=== PATIENT | male | born 1960 | race Caucasian/White ===

== ENCOUNTER 2020-09-01 14:10 | Outpatient (REF) | payer OTHER, SELFPAY ==
[2020-09-01 15:31] LABS: Creatinine Urine 49.18 mg/dL; Microalbum/Creatinine Ratio Ur 26.4 ug/mg cr
== END 2020-09-01 14:11 | disposition home or self-care (01) ==
LOC: HO.LNP 14:10
PROVIDERS: Visit Provider Family Medicine
DX: Z00.00 Encounter for general adult medical examination without abnormal findings (principal); I10 Essential (primary) hypertension; E11.9 Type 2 diabetes mellitus without complications; L30.9 Dermatitis, unspecified
CPT/HCPCS: 82043

== ENCOUNTER 2020-10-13 16:53 | Emergency (ER) | payer OTHER, SELFPAY ==
--- NOTE | ~2020-10-13 | XR_ITS ---
EXAMINATION: PORTABLE CHEST 1 VIEW CLINICAL INFORMATION: mental status change . COMPARISON: 09/25/2018. TECHNIQUE: Portable frontal view of the chest was obtained. FINDINGS: The lungs are well expanded. No focal infiltrate, effusion, edema, or pneumothorax. Cardiac and mediastinal silhouettes are within normal limits for technique. No acute bony abnormality seen. XR/XR chest 1V IMPRESSION: No evidence of acute disease.
--- NOTE | ~2020-10-13 | CT_ITS ---
EXAMINATION: CT HEAD WITHOUT CONTRAST CLINICAL INFORMATION: Mental status change COMPARISON: None TECHNIQUE: Contiguous axial imaging was performed from the skull base to vertex without intravenous administration of contrast. This CT examination was performed using dose optimization techniques as appropriate, variously including the following: *Automated exposure control *Adjustment of mA and/or kV according to patient size (this includes techniques or standardized protocols for targeted exams where dose is matched to indication/reason for exam; i.e. extremities or head) *Use of iterative reconstruction technique DLP: 805 mGy-cm FINDINGS: Acute intracranial hemorrhage within the left external capsule. There is mild surrounding vasogenic edema. There is no midline shift. The ventricles are symmetrical. Blue to white matter differentiation is otherwise well preserved. No extra-axial fluid collections are identified. The ventricles are normal in size. The osseous structures and soft tissues are normal. The mastoid air cells and visualized portions of the paranasal sinuses are well aerated. CT/CT head/brain wo con IMPRESSION: Hemorrhagic infarct of the left external capsule. This Critical Result was discussed with Dr. Dominguez at 6:12 PM on 10/13/2020 and it was ascertained that the content and urgency of the report was understood at the time of direct communication.
--- NOTE | 2020-10-13 08:58 | ECG_ITS ---
Test Reason : STROKE Blood Pressure : / mmHG Vent. Rate : 106 BPM Atrial Rate : 106 BPM P-R Int : 180 ms QRS Dur : 094 ms QT Int : 376 ms P-R-T Axes : 081 028 064 degrees QTc Int : 499 ms Artifact in tracing Sinus tachycardia Otherwise normal ECG When compared with ECG of 25-SEP-2018 11:26, No significant change was found Referred By: Leora Dominguez Electronically Signed By:NAHID PENG
[2020-10-13 17:00] VITALS: BP 148/84; PULSE 107; RESP 18; TEMP 36.6; O2SAT 95; BMI 19.8
[2020-10-13 17:14] LABS: Glucose, Whole Blood 246 mg/dL (60-115)
--- NOTE | 2020-10-13 17:27 | ED.AMS ---
HPI - Altered Mental Status General Chief Complaint: Altered Mental Status Stated Complaint: ?Stroke Time Seen by Provider: 10/13/20 17:03 Source: patient and family (Sister) Mode of arrival: ambulatory Limitations: no limitations History of Present Illness HPI narrative: 60-year-old male history of hypertension, diabetes mellitus patient presented today for evaluation of possible stroke. Patient status post 2nd vaccination shot of COVID 19 yesterday, patient has been feeling generalized weakness, patient has also noticed that he has been dropping objects out of his right hand (patient is right-handed), patient also noticed that he has been drooling out of his right mouth angle on and off. Sister was in room during the exam note is that the patient speaking slower than his normal but no obvious slurred speech. Related Data Previous Rx's Medication Instructions Recorded betamethasone valerate 0.1 % 1 appl TOPICAL DAILY 30 Days #45 g 09/01/20 topical ointment insulin glargine 100 unit/mL (3 50 unit SUBCUT QPM 30 Days #15 ml 09/01/20 mL) subcutaneous pen lisinopril 20 mg tablet 20 mg PO DAILY 90 Days #90 tab 09/01/20 pen needle, diabetic 32 gauge x #100 ea 09/01/2032 amoxicillin 500 mg tablet 500 mg PO Q12H 10 Days #20 tab 09/26/20 cetirizine 10 mg tablet 10 mg PO DAILY 90 Days #90 tab 09/26/20 fluticasone propionate 50 1 spray INTRANASAL Q12H 30 Days 09/26/20 mcg/actuation nasal #16 g spray,suspension Allergies Allergy/AdvReac Type Severity Reaction Status Date / Time aspirin [ASPIRIN] Allergy Unknown ITCH Verified 09/26/20 10:42 Sinus Allergy Unknown unknown Uncoded 09/26/20 10:42 Review of Systems Review of Systems: All other systems are reviewed and are negative Constitutional: Reports as per HPI and Reports no additional constitutional complaints Eyes: Reports as per HPI and Reports no additional eye complaints Reports system reviewed and no additional complaints, except as documented Cardiovascular: Reports as per HPI and Reports no additional cardiovascular complaints Respiratory: Reports as per HPI and Reports no additional respiratory complaints Gastrointestinal: Reports as per HPI and Reports no additional gastrointestinal complaints Genitourinary: Reports no additional female genitourinary complaints Musculoskeletal: Reports no additional musculoskeletal complaints Skin/Breast: Reports system reviewed and no additional complaints, except as docu Psychiatric: Reports no additional psychiatric complaints Endocrine: Reports no additional endocrine complaints Hematologic/Lymphatic: Reports no additional hematologic/lymphatic complaints Allergic/Immunologic: Reports no additional allergic/immunologic complaints Reports system reviewed and no additional complaints, except as documented and Reports Abnormal speech present [facility] Past Medical History Medical History Diabetes mellitus HTN (hypertension) Surgical History History of colonoscopy History of gallstones History of tonsillectomy Family History Family History Father HTN (hypertension) CVD (cardiovascular disease) Diabetes mellitus Mother HTN (hypertension) CVD (cardiovascular disease) Diabetes mellitus Sister No problems noted. Sister No problems noted. Sister Breast cancer Son No problems noted. Social History Social History Advance Directives: No Advance Directives Information Provided: Yes Physical Exam Vital Signs: Vital Signs: Last Vital Signs Temp 97.9 F 10/13/20 17:00 Pulse 107 H 10/13/20 17:00 Resp 18 10/13/20 17:00 BP 148/84 H 10/13/20 17:00 Pulse Ox 95 10/13/20 17:00 Body Mass Index 19.8 Vital signs have been reviewed as appeared to be correct. Blood pressure is elevated. Heart rate is elevated. Respiration rate normal. Temperature normal. Oxygen saturation normal. Appearance: Alert. Oriented X3. No acute distress. Head: Normal external exam. Normocephalic. Atraumatic. No Blanca signs noted. No raccoon eyes noted Eyes: PERRLA. EOMI. Conjunctiva and sclera normal. Eyelids normal. ENT: TM's Normal. Pharynx normal. Uvula midline. Moist mucous membranes. No trismus noted. No drooling noted. No muffled voice noted. Neck: Normal inspection. Neck supple. FROM. No adenopathy. Thyroid Normal. No meningeal signs. No neck mass noted. CVS: Normal heart rate and rhythm. Heart sound normal. No murmurs noted. Pulses normal throughout. Respiratory: No respiratory distress. Painless inspiration. Breath sounds normal. No wheezes/rales/rhonchi noted. Chest nontender. No accessory muscle usage noted or decreased air movement noted. Abdomen: Soft and nontender. Bowel sounds normal in all 4 quadrants. No distention noted. No organomegaly noted. No visible injury noted. Back: No CVA tenderness. Full range of motion noted. Skin: Skin warm and dry. Normal skin color. Normal skin turgor. No rashes/lesions/lacerations noted. Extremities: No lower extremity edema. Extremities exhibit normal range of motion. Extremities nontender. Neuro: Oriented X 3. No motor deficit. No sensory deficit. Reflexes normal. NIH Stroke Scale Level of Consciousness: Alert Level of Consciousness Questions: Answers both questions correctly Level of Consciousness Commands: Performs both tasks correctly Best Gaze: Normal Visual: No visual loss Facial Palsy: Normal Motor Arm (Right): No drift Motor Arm (Left): No drift Motor Leg (Right): No drift Motor Leg (Left): No drift Limb Ataxia: Absent Sensory: Normal Best Language: No aphasia Dysarthia: Normal Extinction and Inattention: No abnormality Score: 0 Course Course Course Narrative: Assessment and plan. 60-year-old male history of hypertension came in with speech problem evaluation, CT of the head showed likely hypertensive bleed in the left extra capsular region. While I am in the process to transfer the patient out to [facility] or [place], patient and family do not want to go to [facility], Patient would like go home. I spent 15 minutes trying talking to the patient about the nature of his hypertensive bleed also explained to him that the disease can progress very quick causing or respiratory issue or also can close severe neurological deficit. Patient still would like to go home against medical advice sister was at the bedside also trying to convince the patient to stay in the hospital but patient is very adamant and would like to sign against medical advice. Patient is awake, alert, oriented, understood risk of leaving against medical advice including or severe neurological deficit. MDM - Altered Mental Status Lab Data Attestation: I reviewed the patient's lab results. Result diagrams: 10/13/20 17:17 10/13/20 17:17 Labs: Lab Results 10/13/20 10/13/20 10/13/20 Range/Units 17:10 17:17 17:17 WBC 8.8 (4.8-10.8) X10*3/uL RBC 5.21 (4.60-5.80) X10*6/uL Hgb 16.0 (14.0-18.0) g/dl Hct 47.5 (42-52) % MCV 91.2 (80-98) fL MCH 30.7 (27.0-33.0) pg MCHC 33.7 (31.0-36.0) g/dl RDW 12.6 (11.0-16.0) % Plt Count 222 (160-400) X10*3/uL MPV 10.1 (9.4-12.4) fL Immature Gran % (Auto) 0.3 (0.0-0.4) % Neut % (Auto) 44.3 L (45-73) % Lymph % (Auto) 44.0 H (20-40) % [place] % (Auto) 8.7 (2-11) % Eos % (Auto) 2.2 (0-4) % Baso % (Auto) 0.5 (0-2) % Lymph # (Auto) 3.9 (1.2-4.9) X10*3/uL [place] # (Auto) 0.8 (0.1-1.2) X10*3/uL Eos # (Auto) 0.2 (0.0-0.4) X10*3/uL Baso # (Auto) 0.0 (0.0-0.2) X10*3/uL Abs Immat Gran (auto) 0.03 (0.00-0.03) X10*3/uL Absolute Neuts (auto) 3.9 (2.0-8.3) X10*3/uL Absolute Nucleated RBC 0.000 (0.0-0.012) X10*3/uL Nucleated RBC % (auto) 0.0 (0.0-0.2) /100WBC PT (10.8-13.0) SEC INR (0.9-1.1) APTT (24.1-38.0) SEC Sodium 141 (135-145) mmol/L Potassium 4.1 (3.3-5.1) mmol/L Chloride 104 (96-108) mmol/L Carbon Dioxide 24 (22-29) mmol/L Anion Gap 17 (12-20) BUN 12 (9-16) mg/dL Creatinine 0.93 (0.5-1.4) mg/dL Estim Creat Clear Calc 95.5 Estimated GFR > 60 POC Glucose 246 H (60-115) mg/dL Random Glucose 189 H (60-115) mg/dL Calcium 9.4 (8.4-10.2) mg/dL Total Bilirubin 0.9 (0.0-1.0) mg/dL Direct Bilirubin 0.4 (0.0-0.5) mg/dL AST 59 H (5-37) U/L ALT 97 H (0-40) U/L Alkaline Phosphatase 79 (39-117) U/L Troponin I High Sens (<3.5-35.0) ng/L B-Natriuretic Peptide (<100) pg/mL Total Protein 7.9 (6.5-8.0) g/dL Albumin 4.2 (3.5-5.0) g/dL Lipase 28 (8-78) U/L 10/13/20 10/13/20 Range/Units 17:17 17:17 WBC (4.8-10.8) X10*3/uL RBC (4.60-5.80) X10*6/uL Hgb (14.0-18.0) g/dl Hct (42-52) % MCV (80-98) fL MCH (27.0-33.0) pg MCHC (31.0-36.0) g/dl RDW (11.0-16.0) % Plt Count (160-400) X10*3/uL MPV (9.4-12.4) fL Immature Gran % (Auto) (0.0-0.4) % Neut % (Auto) (45-73) % Lymph % (Auto) (20-40) % [place] % (Auto) (2-11) % Eos % (Auto) (0-4) % Baso % (Auto) (0-2) % Lymph # (Auto) (1.2-4.9) X10*3/uL [place] # (Auto) (0.1-1.2) X10*3/uL Eos # (Auto) (0.0-0.4) X10*3/uL Baso # (Auto) (0.0-0.2) X10*3/uL Abs Immat Gran (auto) (0.00-0.03) X10*3/uL Absolute Neuts (auto) (2.0-8.3) X10*3/uL Absolute Nucleated RBC (0.0-0.012) X10*3/uL Nucleated RBC % (auto) (0.0-0.2) /100WBC PT 12.7 (10.8-13.0) SEC INR 1.1 (0.9-1.1) APTT 40.5 H (24.1-38.0) SEC Sodium (135-145) mmol/L Potassium (3.3-5.1) mmol/L Chloride (96-108) mmol/L Carbon Dioxide (22-29) mmol/L Anion Gap (12-20) BUN (9-16) mg/dL Creatinine (0.5-1.4) mg/dL Estim Creat Clear Calc Estimated GFR POC Glucose (60-115) mg/dL Random Glucose (60-115) mg/dL Calcium (8.4-10.2) mg/dL Total Bilirubin (0.0-1.0) mg/dL Direct Bilirubin (0.0-0.5) mg/dL AST (5-37) U/L ALT (0-40) U/L Alkaline Phosphatase (39-117) U/L Troponin I High Sens < 3.5 (<3.5-35.0) ng/L B-Natriuretic Peptide < 10 (<100) pg/mL Total Protein (6.5-8.0) g/dL Albumin (3.5-5.0) g/dL Lipase (8-78) U/L Imaging Data CT scan - head: Radiologist's impression: Hemorrhagic infarct of left external capsule. Chest x-ray: Radiologist's impression: No evidence of acute disease. ECG Data ECG #1: Interpretation: Sinus tachycardia at 106 beats per minutes, normal axis, normal intervals, no ST-T changes. Discharge Plan Discharge Clinical Impression: Essential hypertension, Stroke due to intracerebral hemorrhage Patient Disposition: Left Against Medical Advice Instructions: Intracerebral Hemorrhage (DC), Left Hemispheric Stroke (DC) Prescriptions: No Action Lantus Solostar U-100 Insulin 100 unit/mL (3 mL) insulin pen 50 unit subcut QPM 30 Days Qty: 15 RF: 4 (DME) pen needle, diabetic [BD Vida 2nd Gen Pen Needle] 32 gauge x 5/32 needle See Rx Instructions .ROUTE .MEDSUPPLY Qty: 100 RF: 4 lisinopril 20 mg tablet 20 mg PO DAILY 90 Days Qty: 90 RF: 4 betamethasone valerate 0.1 % ointment 1 appl topical DAILY 30 Days Qty: 45 RF: 3 fluticasone propionate [Flonase Allergy Relief] 50 mcg/actuation spray,suspension 1 spray intranasal Q12H 30 Days Qty: 16 RF: 2 cetirizine [All Day Allergy (cetirizine)] 10 mg tablet 10 mg PO DAILY 90 Days Qty: 90 RF: 3 amoxicillin 500 mg tablet 500 mg PO Q12H 10 Days Qty: 20 RF: 0 Referrals: Mic Cordero MD [Primary Care Provider] - 2 days
[2020-10-13 17:38] LABS: Basophils Percent Auto 0.5 % (0-2); Eosinophils Absolute Auto 0.2 X10*3/uL (0.0-0.4); Eosinophils Percent Auto 2.2 % (0-4); Hematocrit 47.5 % (42-52); Imm Gran Abs Auto 0.03 X10*3/uL (0.00-0.03); Imm Gran Pct Auto 0.3 % (0.0-0.4); Lymphocytes Absolute Auto 3.9 X10*3/uL (1.2-4.9); MANUAL DIFF FLAG NO; Mean Corpuscular HGB Conc 33.7 g/dl (31.0-36.0); Mean Corpuscular Hemoglobin 30.7 pg (27.0-33.0); Mean Corpuscular Volume 91.2 fL (80-98); Mean Platelet Volume 10.1 fL (9.4-12.4); Monocytes Absolute Auto 0.8 X10*3/uL (0.1-1.2); Monocytes Percent Auto 8.7 % (2-11); Neutrophils Absolute Auto 3.9 X10*3/uL (2.0-8.3); Neutrophils Percent Auto 44.3 % (45-73); Platelet Count 222 X10*3/uL (160-400); Red Blood Count 5.21 X10*6/uL (4.60-5.80); Red Cell Distribution Width 12.6 % (11.0-16.0); White Blood Count 8.8 X10*3/uL (4.8-10.8)
[2020-10-13 17:40] LABS: INTERNATIONAL NORM RATIO 1.1 (0.9-1.1); Partial Thromboplastin Time 40.5 SEC (24.1-38.0); Prothrombin Time 12.7 SEC (10.8-13.0)
[2020-10-13 17:53] LABS: Alanine Aminotransferase 97 U/L (0-40); Albumin Level 4.2 g/dL (3.5-5.0); Alkaline Phosphatase 79 U/L (39-117); Anion Gap 17 (12-20); Aspartate Amino Transferase 59 U/L (5-37); Bilirubin Direct 0.4 mg/dL (0.0-0.5); Bilirubin Total 0.9 mg/dL (0.0-1.0); Blood Urea Nitrogen 12 mg/dL (9-16); Calcium 9.4 mg/dL (8.4-10.2); Carbon Dioxide 24 mmol/L (22-29); Chloride 104 mmol/L (96-108); Creatinine Clr Calc Pharmacy 95.5; Estimated Glomerular Filt Rate > 60; Glucose Random 189 mg/dL (60-115); Lipase 28 U/L (8-78); Potassium 4.1 mmol/L (3.3-5.1); Sodium 141 mmol/L (135-145); Total Protein 7.9 g/dL (6.5-8.0)
[2020-10-13 17:55] LABS: B Type Natriuretic Peptide < 10 pg/mL (<100); Troponin-I High Sensitivity < 3.5 ng/L (<3.5-35.0)
[2020-10-13] MEDS: Labetalol HCL 100 MG/20 ML VIAL 10 MG IVPUSH (18:00)
[2020-10-13 18:27] VITALS: BP 139/84; PULSE 87; RESP 18; O2SAT 97
--- NOTE | 2020-10-13 19:12 | PC.NURSE ---
patient informed by physician of CT scan results. patient stating he wants to leave. education provided by this nurse. patient still wants to leave.
--- NOTE | 2020-10-13 19:12 | PC.NURSE ---
patients family member in to help educate patient on need to transfer to facility with neuro surgeon. patient continues to resfuse.
--- NOTE | 2020-10-13 19:13 | PC.NURSE ---
patient still states he is going to leave no matter what. this nurse again provided education on the topic. patient looking angry and stating he is going to leave. drafting up AMA discharge papers.
--- NOTE | 2020-11-02 16:46 | MHC.STROKE ---
LATE ENTRY, PATIENT ONSET OF SYMPTOMS 28 HOURS PRODUCT SAFETY HEAD 10/12/20 AT 1453. HE REFUSED TRANSFER TO TERTIARY FACILITY FOR ICH. SIGNED OUT AMA
== END 2020-10-13 19:15 | disposition left against medical advice (07) ==
PROVIDERS: Emergency Provider Emergency Medicine; PCP Family Medicine
DX: I61.9 Nontraumatic intracerebral hemorrhage, unspecified (principal); I10 Essential (primary) hypertension; R53.1 Weakness; R00.0 Tachycardia, unspecified; E11.9 Type 2 diabetes mellitus without complications; Z79.4 Long term (current) use of insulin
CPT/HCPCS: 36415; 70450; 71045; 80048; 80076; 82947; 83690; 83880; 84484; 85025; 85610; 85730; 87635; 93005; 99284; 99285

== ENCOUNTER 2021-06-09 07:11 | Outpatient (REF) | payer OTHER, SELFPAY ==
[2021-06-09 08:07] LABS: Estimated Average Glucose 220 mg/dL; Hemoglobin A1c % 9.3 %
== END 2021-06-09 07:12 | disposition home or self-care (01) ==
LOC: HO.LAB 07:11
PROVIDERS: Absent Provider Hospitalist; PCP Family Medicine; Visit Provider Family Medicine
DX: E11.9 Type 2 diabetes mellitus without complications (principal)
CPT/HCPCS: 36415; 83036

== ENCOUNTER 2021-08-09 | Outpatient (REF) | payer OTHER, SELFPAY ==
[2021-08-10 11:17] LABS: Appearance Urine CLEAR; Color Urine YELLOW; Glucose Urine UA >=1000 MG/DL (NEG); Leukocyte Esterase Urine NEG (NEG); Nitrite Urine NEG (NEG); PH 5.5 (5.0-8.0); Specific Gravity - Urine 1.015 (1.005-1.025); Urine Blood NEG (NEG); Urine Ketones NEG (NEG); Urine Protein NEG (NEG-TRACE)
[2021-08-10 11:49] LABS: RBC Urine 0 /HPF (0); Sperm Urine NOTED; WBC Urine 0-2 /HPF (0-4)
[2021-08-10 12:06] LABS: Microalbum/Creatinine Ratio Ur 42.5 ug/mg cr
== END 2021-08-09 00:01 | disposition home or self-care (01) ==
LOC: HO.LNP
PROVIDERS: Visit Provider Family Medicine
DX: R30.0 Dysuria (principal)
CPT/HCPCS: 81001; 82043; 87086

== ENCOUNTER 2021-08-10 11:02 | Outpatient (REF) | payer OTHER, SELFPAY | END 2021-08-10 11:03 | disposition home or self-care (01) | LOC: HO.LNP 11:02 | PROVIDERS: Visit Provider Family Medicine | DX: Z13.89 Encounter for screening for other disorder (principal) ==

== ENCOUNTER 2021-08-15 08:40 | Outpatient (REF) | payer OTHER, SELFPAY ==
[2021-08-15 10:07] LABS: Alanine Aminotransferase 78 U/L (0-40); Alkaline Phosphatase 80 U/L (39-117); Anion Gap 11 (12-20); Aspartate Amino Transferase 52 U/L (5-37); Bilirubin Total 0.9 mg/dL (0.0-1.0); Blood Urea Nitrogen 9 mg/dL (9-16); Calcium 9.8 mg/dL (8.4-10.2); Carbon Dioxide 30 mmol/L (22-29); Chloride 105 mmol/L (96-108); Cholesterol 147 mg/dL; Estimated Glomerular Filt Rate > 60; Glucose Fasting 77 mg/dL (60-99); HDL Cholesterol 33 mg/dL; LDL Cholesterol Calculated 103 mg/dl; Lipase 21 U/L (8-78); Sodium 141 mmol/L (135-145); Total Protein 7.4 g/dL (6.5-8.0); Triglycerides 59 mg/dL
[2021-08-15 10:41] LABS: Appearance Urine CLEAR; Color Urine YELLOW; Glucose Urine UA 100 MG/DL (NEG); Leukocyte Esterase Urine NEG (NEG); Nitrite Urine NEG (NEG); Specific Gravity - Urine >= 1.030 (1.005-1.025); Urine Blood NEG (NEG); Urine Ketones NEG (NEG); Urine Protein NEG (NEG-TRACE)
== END 2021-08-15 08:41 | disposition home or self-care (01) ==
LOC: HO.LAB 08:40
PROVIDERS: PCP Family Medicine; Visit Provider Family Medicine
DX: Z00.00 Encounter for general adult medical examination without abnormal findings (principal); R10.9 Unspecified abdominal pain; R30.0 Dysuria
CPT/HCPCS: 36415; 80053; 80061; 81003; 83690; 84443

== ENCOUNTER 2021-12-12 10:54 | Emergency (ER) | payer OTHER, SELFPAY ==
--- NOTE | ~2021-12-12 | CT_ITS ---
EXAMINATION: CT HEAD WITHOUT CONTRAST CLINICAL INFORMATION: Mental status change. COMPARISON: CT scan of the head 10/13/2020. TECHNIQUE: Contiguous axial imaging was performed from the skull base to vertex without intravenous administration of contrast. This CT examination was performed using dose optimization techniques as appropriate, variously including the following: *Automated exposure control *Adjustment of mA and/or kV according to patient size (this includes techniques or standardized protocols for targeted exams where dose is matched to indication/reason for exam; i.e. extremities or head) *Use of iterative reconstruction technique DLP: 712 mGy-cm FINDINGS: There is no acute intracranial hemorrhage or abnormal extra-axial collection. No intracranial mass effect or midline shift. Lateral and third ventricles are normal. No hydrocephalus. Blue-white matter differentiation is preserved and there is no evidence of acute territorial infarct. The calvarium and skull base are intact. Mastoid air cells and middle ear cavities are well aerated. 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 CT/CT head/brain wo con IMPRESSION: Unremarkable examination in that there is no evidence of acute territorial infarct or hemorrhage. No intracranial mass effect or hydrocephalus.
[2021-12-12 11:00] VITALS: BP 183/97; PULSE 94; RESP 18; TEMP 36.4; O2SAT 96; BMI 20.9
[2021-12-12 11:06] LABS: Glucose, Whole Blood 139 mg/dL (60-115)
--- NOTE | 2021-12-12 11:23 | ED_ITS ---
HPI - Neuro Symptoms/Deficit General Chief Complaint: Stroke Stated Complaint: WEAKNESS,TOLD TO COME TO ER FOR HEART BLOCK BY MD Time Seen by Provider: 12/12/21 11:23 Source: patient and EMS Mode of arrival: EMS Limitations: no limitations History of Present Illness HPI Narrative: 61-year-old male came in for evaluation of change mental status. Patient with history of diabetes taking 100 units of Lantus and glucose fashion 500 mg b.i.d., the patient had speech problem and left-sided weakness patient was given 250 mL of D10 the patient's symptoms started to improve gradually, patient in the emergency department is awake alert, oriented x3 with unremarkable neuro exam. Patient had a history of left-sided stroke with a subtle right-sided weakness. Related Data Previous Rx's Medication Instructions Recorded betamethasone valerate 0.1 % 1 appl TOPICAL DAILY 30 Days #45 g 09/01/20 topical ointment cetirizine 10 mg tablet (All Day 10 mg PO DAILY 90 Days #90 tab 09/26/20 Allergy (cetirizine)) fluticasone propionate 50 1 spray INTRANASAL Q12H 30 Days 09/26/20 mcg/actuation nasal #16 g spray,suspension (Flonase Allergy Relief) blood pressure monitor #1 ea 08/09/21 pen needle, diabetic 32 gauge x #100 ea 08/09/21/32 (BD Vida 2nd Gen Pen Needle) sulfamethoxazole 800 1 tab PO Q12H 10 Days #20 tab 08/09/21 mg-trimethoprim 160 mg tablet (Bactrim DS) insulin glargine 100 unit/mL (3 50 unit (0.5 mL) SUBCUT QPM 30 08/16/21 mL) subcutaneous pen ( #15 ml KwikPen U-100 Insulin) metformin 500 mg tablet 500 mg PO BID #60 tab 10/02/21 lisinopril 20 mg tablet 20 mg PO DAILY #90 tab 11/17/21 Allergies Allergy/AdvReac Type Severity Reaction Status Date / Time aspirin [ASPIRIN] Allergy Unknown ITCH Verified 08/09/21 15:58 Sinus Allergy Unknown unknown Uncoded 08/09/21 15:58 Review of Systems Review of Systems: All other systems are reviewed and are negative Constitutional: Reports as per HPI and Reports no additional constitutional complaints Eyes: Reports as per HPI and Reports no additional eye complaints Reports system reviewed and no additional complaints, except as documented Cardiovascular: Reports as per HPI and Reports no additional cardiovascular complaints Respiratory: Reports as per HPI and Reports no additional respiratory complaints Gastrointestinal: Reports as per HPI and Reports no additional gastrointestinal complaints Genitourinary: Reports no additional female genitourinary complaints Musculoskeletal: Reports no additional musculoskeletal complaints Skin/Breast: Reports system reviewed and no additional complaints, except as docu Psychiatric: Reports no additional psychiatric complaints Endocrine: Reports no additional endocrine complaints Hematologic/Lymphatic: Reports no additional hematologic/lymphatic complaints Allergic/Immunologic: Reports no additional allergic/immunologic complaints Reports system reviewed and no additional complaints, except as documented and Reports Abnormal speech present [facility] Past Medical History Medical History Diabetes mellitus HTN (hypertension) Surgical History History of colonoscopy History of gallstones History of tonsillectomy Family History Family History Father HTN (hypertension) CVD (cardiovascular disease) Diabetes mellitus Mother HTN (hypertension) CVD (cardiovascular disease) Diabetes mellitus Sister No problems noted. Sister No problems noted. Sister Breast cancer Son No problems noted. Social History Social History Alcohol intake: current Alcohol intake frequency: holidays/special occasions only Patient Tobacco Use Status: Former Tobacco user Use of substances other than those prescribed or required for medical reasons: No Advance Directives: Yes Advance Directives Information Provided: Yes Advance Directives on File: No Physical Exam Vital Signs: Vital Signs: Last Vital Signs Temp 98.7 F 12/12/21 14:37 Pulse 90 12/12/21 14:37 Resp 16 12/12/21 14:37 BP 170/92 H 12/12/21 14:37 Pulse Ox 95 12/12/21 14:37 BMI result Body Mass Index 20.9 Vital signs have been reviewed as appeared to be correct. Blood pressure elevated. Heart rate normal. Respiration rate normal. Temperature normal. Oxygen saturation normal. Appearance: Alert. Oriented X3. No acute distress. Head: Normal external exam. Normocephalic. Atraumatic. No Blanca signs noted. No raccoon eyes noted Eyes: PERRLA. EOMI. Conjunctiva and sclera normal. Eyelids normal. ENT: TM's Normal. Pharynx normal. Uvula midline. Moist mucous membranes. No trismus noted. No drooling noted. No muffled voice noted. Neck: Normal inspection. Neck supple. FROM. No adenopathy. Thyroid Normal. No meningeal signs. No neck mass noted. CVS: Normal heart rate and rhythm. Heart sound normal. No murmurs noted. Pulses normal throughout. Respiratory: No respiratory distress. Painless inspiration. Breath sounds normal. No wheezes/rales/rhonchi noted. Chest nontender. No accessory muscle usage noted or decreased air movement noted. Abdomen: Soft and nontender. Bowel sounds normal in all 4 quadrants. No distention noted. No organomegaly noted. No visible injury noted. Back: No CVA tenderness. Full range of motion noted. Skin: Skin warm and dry. Normal skin color. Normal skin turgor. No rashes/lesions/lacerations noted. Extremities: No lower extremity edema. Extremities exhibit normal range of motion. Extremities nontender. Neuro: Oriented X 3. Cranial nerve exam: II-XII are grossly intact No motor deficit. No sensory deficit. Reflexes normal. Course Reevaluation(s) Reevaluation #1: Patient is awake, alert, oriented x3, repeat neuro exam is unchanged with no weakness, NIH score is 0. Patient feels at his normal baseline, sister/ at the bedside will take home. Patient tolerated p.o. intake for discharge and fingerstick is 122. Leukocytosis likely reaction to hypoglycemic stress. Time: 15:09 [facility] - Neuro Symptoms/Deficit Lab Data Attestation: I reviewed the patient's lab results. Result diagrams: 12/12/21 12:20 12/12/21 12:20 Labs: Lab Results 12/12/21 12/12/21 12/12/21 Range/Units 11:03 12:20 12:20 WBC 12.4 H (4.8-10.8) X10*3/uL RBC 5.30 (4.60-5.80) X10*6/uL Hgb 16.0 (14.0-18.0) g/dl Hct 47.7 (42.0-52.0) % MCV 90.0 (80.0-98.0) fL MCH 30.2 (27.0-33.0) pg MCHC 33.5 (31.0-36.0) g/dl RDW 12.4 (11.0-16.0) % Plt Count 191 (160-400) X10*3/uL MPV 9.5 (9.4-12.4) fL Immature Gran % (Auto) 0.4 (0.0-0.4) % Neut % (Auto) 78.4 H (45-73) % Lymph % (Auto) 13.3 L (20-40) % [place] % (Auto) 7.4 (2-11) % Eos % (Auto) 0.3 (0-4) % Baso % (Auto) 0.2 (0-2) % Lymph # (Auto) 1.6 (1.2-4.9) X10*3/uL [place] # (Auto) 0.9 (0.1-1.2) X10*3/uL Eos # (Auto) 0.0 (0.0-0.4) X10*3/uL Baso # (Auto) 0.0 (0.0-0.2) X10*3/uL Abs Immat Gran (auto) 0.05 H (0.00-0.03) X10*3/uL Absolute Neuts (auto) 9.7 H (2.0-8.3) x10*3/uL Absolute Nucleated RBC 0.000 (0.0-0.012) X10*3/uL Nucleated RBC % (auto) 0.0 (0.0-0.2) /100WBC Sodium 139 (135-145) mmol/L Potassium 4.8 (3.3-5.1) mmol/L Chloride 103 (96-108) mmol/L Carbon Dioxide 28 (22-29) mmol/L Anion Gap 13 (12-20) BUN 12 (9-16) mg/dL Creatinine 0.86 (0.5-1.4) mg/dL Estim Creat Clear Calc 107.9 Estimated GFR > 60 POC Glucose 139 H (60-115) mg/dL Random Glucose 87 D (60-115) mg/dL Calcium 9.7 (8.4-10.2) mg/dL Total Bilirubin 1.1 H (0.0-1.0) mg/dL Direct Bilirubin 0.5 (0.0-0.5) mg/dL AST 55 H (5-37) U/L ALT 73 H (0-40) U/L Alkaline Phosphatase 77 (39-117) U/L Total Protein 8.0 (6.5-8.0) g/dL Albumin 4.4 (3.5-5.0) g/dL Lipase 9 (8-78) U/L Urine Color Urine Appearance Urine pH (5.0-8.0) Ur Specific [place] (1.005-1.025) Urine Protein (NEG-TRACE) MG/DL Urine Glucose (UA) (NEG) MG/DL Urine Ketones (NEG) MG/DL Urine Blood (NEG) Urine Nitrite (NEG) Ur Leukocyte Esterase (NEG) 12/12/21 12/12/21 Range/Units 12:20 15:13 WBC (4.8-10.8) X10*3/uL RBC (4.60-5.80) X10*6/uL Hgb (14.0-18.0) g/dl Hct (42.0-52.0) % MCV (80.0-98.0) fL MCH (27.0-33.0) pg MCHC (31.0-36.0) g/dl RDW (11.0-16.0) % Plt Count (160-400) X10*3/uL MPV (9.4-12.4) fL Immature Gran % (Auto) (0.0-0.4) % Neut % (Auto) (45-73) % Lymph % (Auto) (20-40) % [place] % (Auto) (2-11) % Eos % (Auto) (0-4) % Baso % (Auto) (0-2) % Lymph # (Auto) (1.2-4.9) X10*3/uL [place] # (Auto) (0.1-1.2) X10*3/uL Eos # (Auto) (0.0-0.4) X10*3/uL Baso # (Auto) (0.0-0.2) X10*3/uL Abs Immat Gran (auto) (0.00-0.03) X10*3/uL Absolute Neuts (auto) (2.0-8.3) x10*3/uL Absolute Nucleated RBC (0.0-0.012) X10*3/uL Nucleated RBC % (auto) (0.0-0.2) /100WBC Sodium (135-145) mmol/L Potassium (3.3-5.1) mmol/L Chloride (96-108) mmol/L Carbon Dioxide (22-29) mmol/L Anion Gap (12-20) BUN (9-16) mg/dL Creatinine (0.5-1.4) mg/dL Estim Creat Clear Calc Estimated GFR POC Glucose 53 L* (60-115) mg/dL Random Glucose (60-115) mg/dL Calcium (8.4-10.2) mg/dL Total Bilirubin (0.0-1.0) mg/dL Direct Bilirubin (0.0-0.5) mg/dL AST (5-37) U/L ALT (0-40) U/L Alkaline Phosphatase (39-117) U/L Total Protein (6.5-8.0) g/dL Albumin (3.5-5.0) g/dL Lipase (8-78) U/L Urine Color YELLOW Urine Appearance CLEAR Urine pH 6.0 (5.0-8.0) Ur Specific [place] 1.020 (1.005-1.025) Urine Protein NEG (NEG-TRACE) MG/DL Urine Glucose (UA) 100 H (NEG) MG/DL Urine Ketones 40 (NEG) MG/DL Urine Blood NEG (NEG) Urine Nitrite NEG (NEG) Ur Leukocyte Esterase NEG (NEG) Imaging Data CT scan - head: Attestation: I personally reviewed and interpreted this imaging study as follows: Radiologist's impression: Unremarkable examination in that there is no evidence of acute territorial infarct or hemorrhage. No intracranial mass effect or hydrocephalus. NIH Stroke Scale Level of Consciousness: Alert Level of Consciousness Questions: Answers both questions correctly Level of Consciousness Commands: Performs both tasks correctly Best Gaze: Normal Visual: No visual loss Facial Palsy: Normal Motor Arm (Right): No drift Motor Arm (Left): No drift Motor Leg (Right): No drift Motor Leg (Left): No drift Limb Ataxia: Absent Sensory: Normal Best Language: No aphasia Dysarthia: Normal Extinction and Inattention: No abnormality Score: 0 Discharge Plan Discharge Clinical Impression: Hypoglycemia due to insulin Patient Disposition: Home, Self-Care Instructions: What to Do if Your Blood Sugar is Low (ED) Prescriptions: No Action Lee Meneses U-100 Insulin 100 unit/mL (3 mL) insulin pen 50 unit subcut QPM 30 Days Qty: 15 4RF metformin 500 mg tablet 500 mg PO BID Qty: 60 1RF lisinopril 20 mg tablet 20 mg PO DAILY Qty: 90 3RF betamethasone valerate 0.1 % ointment 1 appl topical DAILY 30 Days Qty: 45 3RF fluticasone propionate [Flonase Allergy Relief] 50 mcg/actuation spray,suspension 1 spray intranasal Q12H 30 Days Qty: 16 2RF Rx Instructions: administer into each nostril cetirizine [All Day Allergy (cetirizine)] 10 mg tablet 10 mg PO DAILY 90 Days Qty: 90 3RF (DME) pen needle, diabetic [BD Vida 2nd Gen Pen Needle] 32 gauge x 5/32 needle See Rx Instructions .ROUTE .MEDSUPPLY Qty: 100 4RF Rx Instructions: DX: E11.9, daily As directed to treat blood sugar, 90 day supply sulfamethoxazole-trimethoprim [Bactrim DS] 800-160 mg tablet 1 tab PO Q12H 10 Days Qty: 20 0RF (DME) blood pressure monitor Kit See Rx Instructions .ROUTE .MEDSUPPLY Qty: 1 0RF Rx Instructions: Automatic, Digital. Dx: I10. Daily As directed, 999 days/lifetime Referrals: Physician,Unknown J [Primary Care Provider] - Interventions: ED Discharge Assessment Last Done: 12/12/21 15:52
--- NOTE | 2021-12-12 11:25 | ECG_ITS ---
Test Reason : hypoglycemia Blood Pressure : / mmHG Vent. Rate : 088 BPM Atrial Rate : 088 BPM P-R Int : 192 ms QRS Dur : 100 ms QT Int : 406 ms P-R-T Axes : 069 -05 059 degrees QTc Int : 491 ms Normal sinus rhythm Possible Left atrial enlargement Minimal voltage criteria for LVH, may be normal variant ( Joey product ) Prolonged QT Abnormal ECG When compared with ECG of 13-OCT-2020 17:05, No significant changes seen Referred By: Leora Dominguez Electronically Signed By:NAHID PENG
[2021-12-12 11:34] VITALS: BP 194/101; PULSE 88; RESP 15; O2SAT 97
[2021-12-12 12:27] LABS: MANUAL DIFF FLAG NO
[2021-12-12 12:28] LABS: Appearance Urine CLEAR; Color Urine YELLOW; Glucose Urine UA 100 MG/DL (NEG); Leukocyte Esterase Urine NEG (NEG); Nitrite Urine NEG (NEG); Urine Blood NEG (NEG); Urine Ketones 40 MG/DL (NEG); Urine Protein NEG (NEG-TRACE)
[2021-12-12 12:30] LABS: Basophils Percent Auto 0.2 % (0-2); Eosinophils Percent Auto 0.3 % (0-4); Hematocrit 47.7 % (42.0-52.0); Imm Gran Abs Auto 0.05 X10*3/uL (0.00-0.03); Imm Gran Pct Auto 0.4 % (0.0-0.4); Lymphocytes Absolute Auto 1.6 X10*3/uL (1.2-4.9); Lymphocytes Percent Auto 13.3 % (20-40); Mean Corpuscular HGB Conc 33.5 g/dl (31.0-36.0); Mean Corpuscular Hemoglobin 30.2 pg (27.0-33.0); Mean Platelet Volume 9.5 fL (9.4-12.4); Monocytes Absolute Auto 0.9 X10*3/uL (0.1-1.2); Monocytes Percent Auto 7.4 % (2-11); Neutrophils Absolute Auto 9.7 x10*3/uL (2.0-8.3); Neutrophils Percent Auto 78.4 % (45-73); Platelet Count 191 X10*3/uL (160-400); Red Cell Distribution Width 12.4 % (11.0-16.0); White Blood Count 12.4 X10*3/uL (4.8-10.8)
[2021-12-12 12:54] LABS: Alanine Aminotransferase 73 U/L (0-40); Albumin Level 4.4 g/dL (3.5-5.0); Alkaline Phosphatase 77 U/L (39-117); Anion Gap 13 (12-20); Aspartate Amino Transferase 55 U/L (5-37); Bilirubin Direct 0.5 mg/dL (0.0-0.5); Bilirubin Total 1.1 mg/dL (0.0-1.0); Blood Urea Nitrogen 12 mg/dL (9-16); Calcium 9.7 mg/dL (8.4-10.2); Carbon Dioxide 28 mmol/L (22-29); Chloride 103 mmol/L (96-108); Creatinine Clr Calc Pharmacy 107.9; Estimated Glomerular Filt Rate > 60; Glucose Random 87 mg/dL (60-115); Lipase 9 U/L (8-78); Potassium 4.8 mmol/L (3.3-5.1); Sodium 139 mmol/L (135-145)
[2021-12-12 13:31] VITALS: BP 181/100; PULSE 95; RESP 16; TEMP 36.8; O2SAT 97
[2021-12-12 14:37] VITALS: BP 170/92; PULSE 90; RESP 16; TEMP 37.1; O2SAT 95
[2021-12-12 15:16] LABS: Glucose, Whole Blood 53 mg/dL (60-115)
[2021-12-12 15:55] LABS: Glucose, Whole Blood 122 mg/dL (60-115)
== END 2021-12-12 16:00 | disposition home or self-care (01) ==
PROVIDERS: Emergency Provider Emergency Medicine
DX: E11.649 Type 2 diabetes mellitus with hypoglycemia without coma (principal); I10 Essential (primary) hypertension; Z79.4 Long term (current) use of insulin
CPT/HCPCS: 36415; 70450; 80048; 80076; 81003; 82947; 83690; 85025; 93005; 99284; 99285

== ENCOUNTER 2023-01-18 08:38 | Outpatient (AMB) | payer OTHER, SELFPAY ==
[2023-01-18 08:41] VITALS: BP 144/82; PULSE 99; RESP 13; TEMP 36.8; O2SAT 98; BMI 18.7
--- NOTE | 2023-01-18 08:41 | MHC.PC.OV ---
Vital Signs 01/18/23 08:41 01/18/23 09:26 Height 6 ft 6 in Weight 162 lb 4 oz BMI 18.7 BP 144/82 H 130/90 H Blood Pressure Location Lt brachial Lt brachial Position Sitting Sitting Respiration 13 Pulse 99 Pulse Source Pulse Oximeter Temp 98.3 F Temp Source Temporal Artery Scan Pulse Oximetry (%) 98 Oxygen Delivery Method Room Air Intake Visit Reasons: Annual PE Intake Note: Patient states he needs refills on all his medication. Patient has open wounds all over body. Patient states that he has sharp pain coming out of his rectal area. 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 Dx: I10. Daily As directed, 999 days/lifetime cetirizine (All Day Allergy (cetirizine)) 10 mg PO DAILY 90 days fluticasone propionate 50 mcg/actuation (Flonase Allergy Relief) 1 spray intranasal Q12H 30 days insulin glargine (Basaglar KwikPen U-100 Insulin) 50 units (0.5 mL) subcut QPM 30 days lisinopril-hydrochlorothiazide 20-12.5 mg 1 tab PO DAILY 30 days metformin 500 mg PO BID pen needle, diabetic (BD Vida 2nd Gen Pen Needle) DX: E11.9, daily As directed to treat blood sugar, 90 day supply sulfamethoxazole-trimethoprim 800-160 mg (Bactrim DS) 1 tab PO Q12H 10 days Tobacco use date assessed: 06/21/22 Dental Screening Dental Screen Date: 01/18/23 Did you have a dental visit in the last 12 months?: No Did you have a dental problem in the last 6 months where you did not have access to dental care?: Yes HPI HPI Comments History of Present Illness Details 62-year-old male presents for a follow-up visit He was last evaluated by his PCP on 05/2022. His A1c was 5.9%. He was referred to endocrinology for diabetes and advised to return in 1 month for diabetes and hypertension. He did not follow up with endocrinology or is PCP as planned. He is on metformin, glargine, and lisinopril-hydrochlorothiazide. He notes he has been out of his medications for the past 2 months He gave a positive response to PHQ-9 question regarding thoughts that you would better off or hurting yourself in some way. He states that he gets upset that his health does not improved. He denies SI/HI, denies plan of committing suicide, and contracts for safety. He denies anxiety and depression He reports poor sleep and states he he wakes up at night every 2 hours. He requests medication for sleep He reports tingling and numbness to his hands and feet for the past several months He reports chronic wounds to his dorsal hands; he notes the wounds are on and off and usually starts as blisters, sometimes presents on his elbows and different parts of his body; he states he was told by his doctors the wounds resulted from hepatitis C He reports painful lumps to his posterior neck and left side of chest which have been present for the past 3 weeks He also reports intermittent sharp pain to his rectum. No blood in stool, straining with defecation or bowel changes He requests refill of his medications REPLACED BY [facility] Medical History (Updated 01/18/23 @ 21:52 by Jessica Baeza CNP) Asthma Diabetes mellitus HTN (hypertension) Surgical History History of colonoscopy History of gallstones History of tonsillectomy Family History Father HTN (hypertension) CVD (cardiovascular disease) Diabetes mellitus Mother HTN (hypertension) CVD (cardiovascular disease) Diabetes mellitus Sister No problems noted. Sister No problems noted. Sister Breast cancer Son No problems noted. Social History (Updated 01/18/23 @ 08:54 by Tammi Mendosa MA) Household Members: Spouse Housing: Apartment Are you a primary senior care manager to a significant other at home: No Do you presently have visiting nurse or other home services: No 75 years or older and lives alone: No Alcohol intake: current Alcohol intake frequency: holidays/special occasions only Patient Tobacco Use Status: Former Tobacco user Tobacco use type: Cigarette Cigarettes Per Day: 10 Years Smoked: 2 e-Cigarette/Vaping Use: Never Used Second Hand Smoke Exposure: No Special florencia needs: No Agree to transfusion: Yes service: No 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al status: unemployed 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al exposures/hazards: No Sexual orientation: Straight/Heterosexual Gender identity: Male Cognitive needs: No Hearing needs: Yes Vision needs: Yes Questionnaire PHQ-9 Over the last 2 weeks, how often have you been bothered by any of the following problems? 1. Little interest or pleasure in doing things: nearly every day 2. Feeling down, depressed, or hopeless: nearly every day 3. Trouble falling or staying asleep, or sleeping too much: nearly every day 4. Feeling tired or having little energy: nearly every day 5. Poor appetite or overeating: nearly every day 6. Feeling bad about yourself - or that you are a failure or have let yourself or your family down: nearly every day 7. Trouble concentrating on things, such as reading the newspaper or watching television: not at all 8. Moving or speaking so slowly that other people could have noticed. Or the opposite - being so fidgety or restless that you have been moving around a lot more than usual: nearly every day 9. Thoughts that you would be better off or of hurting yourself in some way: several days Total score: 22 Depression Screening Interpretation: Positive Depression Screening Follow-up: Existing condition and Declines treatment Source: Developed by Drs. Erik Napoles, Genie Hernandez, Stew Edge and colleagues, with an educational sami from [employer]. Thrive Questionnaire Date Thrive assessed: 01/18/23 I am a: Patient What is your living situation today?: I have a steady place to live Within the past 12 months, did the food you bought not last and you didn't have the money to get more?: Often true Within the past 12 months, did you worry whether your food would run out before you got money to buy more?: Often true Do you have trouble paying for medicines?: No Do you have trouble getting transportation to medical appointments?: No Do you have trouble paying your heating and electricity bill?: Yes Do you have trouble taking care of your child, family member or friend?: No Do you have trouble with day-to-day activities such as bathing, preparing meals, shopping, managing finances, etc.?: No Are you currently unemployed and looking for a job?: No Are you interested in more education?: No Please select the resources that you would like help with: Food and Utilities Currently or been in a relationship where the following occur: no concerns reported AUDIT C Alcohol Use Questionnaire (AUDIT-C) 1. How often do you have a drink containing alcohol?: 2-4 times a month 2. How many drinks containing alcohol do you have on a typical day when you are drinking?: 3 or 4 3. How often do you have six or more drinks on one occasion?: Never Total Score: 3 RIKI-7 AMB Questionnaire RIKI-7 Date RIKI - 7 assessed: 01/18/23 Feeling nervous, anxious, or on edge: 3 = Nearly every day Not being able to stop or control worryin = Nearly every day Worrying too much about different things: 3 = Nearly every day Trouble relaxin = Nearly every day Being so restless that it is hard to sit still: 3 = Nearly every day Becoming easily annoyed or irritable: 3 = Nearly every day Feeling afraid as if something awful might happen: 2 = More than half the days Total RIKI-7 score (0-4 normal; 5-9 mild; 10-14 moderate; 15-21 severe): 20 Source: Developed by Drs. Erik Napoles, Genie Hernandez, Stew Edge and colleagues, with an educational sami from [employer]. ACT Questionnaire In the past 4 weeks, how much of the time did your asthma keep you from getting as much done at work, school or at home?: A little of the time During the past 4 weeks, how often have you had shortness of breath?: Not at all During the past 4 weeks, how often did your asthma symptoms wake you up at night or earlier than usual in the morning?: Not at all During the past 4 weeks, how often have you had to use your rescue inhaler or nebulizer medication?: Not at all How would you rate your asthma control during the past 4 weeks?: Well controlled Score: 23 Review of Systems Const Details: Const Denies chills, Denies fatigue, Denies fever(s), Denies headache(s) and Denies weakness ENT Denies dizziness and Denies headache(s) Card Denies chest pain, Denies lightheadedness, Denies dyspnea and Denies other (Palpitations) Resp Denies cough, Denies dyspnea, Denies wheezing and Denies other ( shortness of breath) GI Reports rectal pain, Denies abdominal pain, Denies melena, Denies hematochezia, Denies change in bowel habits, Denies dyspepsia and Denies nausea Denies hematuria and Denies dysuria Musc Denies abnormal gait, Denies myalgias, Denies arthralgias, Reports numbness and Reports tingling Skin/Breast Reports as per HPI Neuro Denies abnormal gait, Denies dizziness, Denies headache(s), Denies memory loss, Reports numbness, Denies Sensory deficit (Neuro), Denies tingling and Denies weakness Psych Reports anxiety, Reports depression, Denies memory loss Endo Denies cold intolerance, Denies fatigue, Denies heat intolerance, Denies polydipsia and Denies polyuria Aller/Immun Denies wheezing Physical exam (Primary Care) Vital Signs: Last Vital Signs Temp 98.3 F 01/18/23 08:41 Pulse 99 01/18/23 08:41 Resp 13 01/18/23 08:41 BP 130/90 H 01/18/23 09:26 Pulse Ox 98 01/18/23 08:41 Oxygen Delivery Method Room Air 01/18/23 08:41 BMI result Body Mass Index 18.7 Tobacco/Smoking Status: Tobacco use Status Tobacco use date assessed 06/21/22 01/18/23 08:54 Patient Tobacco Use Status Former Tobacco user 01/18/23 08:54 Tobacco use type Cigarette 01/18/23 08:54 e-Cigarette/Vaping Use Never Used 01/18/23 08:54 PHQ-9: PHQ-9 Score PHQ-9: Total score 22 01/18/23 17:13 Depression Screening Interpretation: Positive Depression Screening Follow-up: Existing condition and Declines treatment Thrive Assessment: Date of Thrive Assessment Date Thrive assessed 01/18/23 01/18/23 09:06 Currently or been in a relationship where the following occur: no concerns reported Const Other: General: no acute distress and well developed Nutritional Appearance: poorly nourished Orientation/consciousness: patient oriented x3 HENMT Head: Yes normocephalic and Yes atraumatic Eyes General: appearance normal, both eyes and all related structures Pupils: Equal, round and reactive pupils present EOM: EOMs intact bilaterally Resp Effort & Inspection: normal respiratory effort Auscultation: clear to auscultation bilaterally Cardio Rate: regular rate Rhythm: regular rhythm Heart sounds: S1 normal heart sound present, S2 normal heart sound present, no gallops, no murmurs and no rubs GI Palpation (GI): No Abdominal aortic bruit present, Soft to palpation, nontender, No hepatosplenomegaly present and No Rebound tenderness present Auscultation: normal bowel sounds General: Yes no CVA tenderness Back/Spine/Pelvis Back: no CVA tenderness Cervical Spine: cervical ROM normal and No Cervical spine tenderness Thoracic/Lumbar Spine: thoraco-lumbar ROM normal, No pain with thoraco-lumbar ROM, No thoracic spinal tenderness and No lumbar spinal tenderness Extrem General: Yes normal to inspection, No edema and No calf tenderness Skin General: warm and dry. Normal skin color. Normal skin turgor Lesions: Three tender, swollen lumps with erythema and pustular heads to posterior neck; consistent with furuncles Rashes: no rashes Trauma: no lacerations or abrasions Wounds: Scabbed wounds to durum of hands, one open wound to right dorsal hand with surrounding erythema, minimal dept and pink bed, no drainage noted. Dry skin with some peeling on both hands. Nails: normal Neuro General: patient oriented x3, gait normal and no focal neuro deficit Cranial nerves: Yes Equal, round and reactive pupils present Cognition (Neuro): normal cognition Gait exam (Neuro): Normal gait present Motor exam (neuro): 5/5 motor strength present throughout Sensory Exam: No Sensory deficit (Neuro) Psych Appearance: grossly normal Affect: normal affect Attitude: cooperative Thought process: Normal thought process present Results AMB Hemoglobin A1c AMB Hemoglobin A1c 8.9 % Last Edit by Nicky Nolan on 01/18/23 09:28 Results Reviewed Results Reviewed: Laboratory Last Values Hgb A1c (Clinic) 8.9 % (4.0-6.0) H 01/18/23 09:03 Assessment and Plan Assessment & Plan (1) Essential hypertension: Code(s): I10 - Essential (primary) hypertension Plan: BP is 130/90, slightly above goal of less than 130/80 Medications refilled Take lisinopril-HCTZ as prescribed Low sodium diet encouraged Follow up with PCP in 1 month or return sooner with symptoms or concerns Verbalized understanding and agrees with the treatment plan (2) Type 2 diabetes, controlled, with neuropathy: Code(s): E11.40 - Type 2 diabetes mellitus with diabetic neuropathy, unspecified Plan: He reports tingling and numbness to his hands and feet for the past several months Likely diabetic neuropathy A1c today is 8.9%, above goal of less than 7.0% Previous A1c on 05/2022 was 5.9% He has not taken Metformin and Glargine insulin since they ran out 2 months ago Metformin and Glargine insulin refilled take as prescribed Gabapentin ordered. Advised to take as prescribed ADA diet and routine exercise encouraged Endocrinology referral made Referred to the special educator Follow up with PCP in 1 month Return sooner with symptoms or concerns Verbalized understanding and agrees with the treatment plan (3) Dermatitis: Code(s): L30.9 - Dermatitis, unspecified Plan: Reports chronic wounds to his dorsal hands; he notes the wounds are on and off and usually starts as blisters, sometimes presents on his elbows and different parts of his body; he states he was told by his doctors the wounds resulted from hepatitis C. Scabbed wounds to durum of hands, one open wound to right dorsal hand with surrounding erythema, minimal dept and pink bed, no drainage noted. Dry skin with some peeling on both hands Consistent with severe dermatitis; may be infected No documented h/o Hep C Bactrim ordered. Advise to take as prescribed Keep open wounds clean and dry Apply moisturizing cream to prevent dry skin and skin breaknown Labs, including Hep A, B, and C ordered Follow up with worsening s/s Verbalized understanding and agrees with the treatment plan (4) Furuncle: Code(s): L02.92 - Furuncle, unspecified Plan: Reports painful lumps to his posterior neck and left side of chest which have been present for the past 3 weeks Three tender, swollen lumps with erythema and pustular heads to posterior neck; consistent with furuncles Treatment is same as above (5) Insomnia: Code(s): G47.00 - Insomnia, unspecified Plan: He reports poor sleep and states he he wakes up at night every 2 hours. He requests medication for sleep Trazodone ordered. Advise to take as prescribed Instructed on sleep hygiene Follow up with new or worsening symptoms Verbalized understanding and agreed with the plan (6) Anxiety and depression: Code(s): F41.9 - Anxiety disorder, unspecified; F32.A - Depression, unspecified Plan: He had a positive response to PHQ-9 question regarding thoughts that you would better off or hurting yourself in some way. He states that he gets upset that his health does not improved. He denies SI/HI, denies plan of committing suicide, and contracts for safety. He denies anxiety and depression PHQ-9 and RIKI-7 scores revealed severe depression and anxiety He declines therapy or psychotropic medications Routine exercise encouraged Advised to inform his PCP if he changes his mind on therapy or medication regimen Follow up with new or worsening symptoms Verbalized understanding and agrees with the treatment plan (7) Rectal pain: Code(s): K62.89 - Other specified diseases of anus and rectum Plan: Reports intermittent sharp pain to his rectum. No blood in stool, straining with defecation or bowel changes GI referral made Return with new or worsening symptoms, blood in stool, or bowel changes Verbalized understanding (8) Liver disease: Code(s): K76.9 - Liver disease, unspecified Plan: Reports h/o Hep C No documented history noted Labs, including Hep C ordered Referred to GI Return with symptoms or concerns Verbalized understanding and agrees with the plan Orders: Orders Comprehensive [place]. Panel Fast Today E11.9 - Type 2 diabetes mellitus without complications, I10 - Essential (primary) hypertension Lipid Panel Today E11.9 - Type 2 diabetes mellitus without complications, I10 - Essential (primary) hypertension TSH reflex Free T4 Today E11.9 - Type 2 diabetes mellitus without complications, I10 - Essential (primary) hypertension Microalbumin, Random (w Creat) Today E11.9 - Type 2 diabetes mellitus without complications, I10 - Essential (primary) hypertension Complete Blood Count Auto Diff Today E11.9 - Type 2 diabetes mellitus without complications, I10 - Essential (primary) hypertension Hepatitis A,B,C Profile Today K76.9 - Liver disease, unspecified AMB Hemoglobin A1c Today Z13.9 - Encounter for screening, unspecified Referrals Dermatology Referral L02.92 - Furuncle, unspecified, L30.9 - Dermatitis, unspecified Endocrinology Referral E11.40 - Type 2 diabetes mellitus with diabetic neuropathy, unspecified Nurse Navigator Referral E11.40 - Type 2 diabetes mellitus with diabetic neuropathy, unspecified Gastroenterology Referral K62.89 - Other specified diseases of anus and rectum, K76.9 - Liver disease, unspecified Medications: New sulfamethoxazole-trimethoprim 800-160 mg (Bactrim DS) 1 tab PO Q12H 10 days 20 tabs 0RF gabapentin 300 mg PO BID 30 days 60 caps 1RF trazodone 50 mg PO BEDTIME 30 days 30 tabs 3RF Refilled metformin 500 mg PO BID 60 tabs 1RF lisinopril-hydrochlorothiazide 20-12.5 mg 1 tab PO DAILY 30 days 30 tabs 1RF insulin glargine (Basaglar KwikPen U-100 Insulin) 50 units (0.5 mL) subcut QPM 30 days 15 mL 4RF Discontinued sulfamethoxazole-trimethoprim 800-160 mg (Bactrim DS) Discontinued Reason: Doctor's Order 1 tab PO Q12H 10 days 20 tabs 0RF R10.9 - Unspecified abdominal pain Coding Level of Care Code Est Pt Level 5 (51765) Diagnoses Essential hypertension I10 Type 2 diabetes, controlled, with neuropathy E11.40 Dermatitis L30.9 Furuncle L02.92 Insomnia G47.00 Anxiety and depression F41.9; F32.A Rectal pain K62.89 Liver disease K76.9 Time Spent (min) 50
[2023-01-18 09:26] VITALS: BP 130/90
== END 2023-01-18 09:37 | disposition home or self-care (01) ==
PROVIDERS: PCP Family Medicine; Visit Provider Nurse Practitioner Family
DX: I10 Essential (primary) hypertension (principal); E11.40 Type 2 diabetes mellitus with diabetic neuropathy, unspecified; F41.9 Anxiety disorder, unspecified; L02.92 Furuncle, unspecified; L30.9 Dermatitis, unspecified; G47.00 Insomnia, unspecified; F32.A Depression, unspecified; K62.89 Other specified diseases of anus and rectum; K76.9 Liver disease, unspecified
CPT/HCPCS: 83036; 99215

== ENCOUNTER 2023-01-21 09:55 | Outpatient (REF) | payer OTHER, SELFPAY ==
[2023-01-21 10:24] LABS: MANUAL DIFF FLAG NO
[2023-01-21 11:30] LABS: Basophils Absolute Auto 0.1 X10*3/uL (0.0-0.2); Basophils Percent Auto 0.5 % (0-2); Eosinophils Absolute Auto 0.1 X10*3/uL (0.0-0.4); Eosinophils Percent Auto 1.5 % (0-4); Hemoglobin 16.8 g/dl (14.0-18.0); Imm Gran Abs Auto 0.04 X10*3/uL (0.00-0.03); Imm Gran Pct Auto 0.4 % (0.0-0.4); Lymphocytes Absolute Auto 2.9 X10*3/uL (1.2-4.9); Lymphocytes Percent Auto 30.9 % (20-40); Mean Corpuscular HGB Conc 32.9 g/dl (31.0-36.0); Mean Corpuscular Hemoglobin 29.8 pg (27.0-33.0); Mean Corpuscular Volume 90.6 fL (80.0-98.0); Mean Platelet Volume 10.9 fL (9.4-12.4); Monocytes Absolute Auto 0.9 X10*3/uL (0.1-1.2); Monocytes Percent Auto 9.8 % (2-11); Neutrophils Absolute Auto 5.4 x10*3/uL (2.0-8.3); Neutrophils Percent Auto 56.9 % (45-73); Platelet Count 254 X10*3/uL (160-400); Red Blood Count 5.63 X10*6/uL (4.60-5.80); Red Cell Distribution Width 12.4 % (11.0-16.0); White Blood Count 9.4 X10*3/uL (4.8-10.8)
[2023-01-21 12:41] LABS: Creatinine Urine 86.45 mg/dL; Microalbum/Creatinine Ratio Ur 10.4 ug/mg cr
[2023-01-21 13:19] LABS: TSH reflex Free T4 0.53 uIU/mL (0.32-4.0)
[2023-01-21 13:21] LABS: Alanine Aminotransferase 97 U/L (0-40); Albumin Level 4.1 g/dL (3.5-5.0); Alkaline Phosphatase 113 U/L (39-117); Anion Gap 16 (12-20); Aspartate Amino Transferase 61 U/L (5-37); Bilirubin Total 1.1 mg/dL (0.0-1.0); Blood Urea Nitrogen 14 mg/dL (9-16); Calcium 11.5 mg/dL (8.4-10.2); Carbon Dioxide 29 mmol/L (22-29); Chloride 98 mmol/L (96-108); Cholesterol 172 mg/dL; Estimated Glomerular Filt Rate 48; Glucose Fasting 403 mg/dL (60-99); HDL Cholesterol 45 mg/dL; LDL Cholesterol Calculated 114 mg/dl; Potassium 4.9 mmol/L (3.3-5.1); Sodium 138 mmol/L (135-145); Total Protein 8.6 g/dL (6.5-8.0); Triglycerides 65 mg/dL
[2023-01-21 13:42] LABS: HBS Num1 0.19 mIU/mL (0-7.99); HBc Num1 0.07 S/CO (0.00-0.79); HBsAGNum1 0.44 S/CO (0.00-0.99); Hepatitis A Antibody IgM 0.19 Index (0-0.79); Hepatitis B Core Antibody Nonreactive (Nonreactive); Hepatitis B Surface Antigen Negative (Negative); ~HepC Num1 14.61 S/CO (0.00-0.79); ~Hepatitis A Antibody IgM Nonreactive (Nonreactive); ~Hepatitis B Surface Antibody NONREACTIVE (Nonreactive); ~Hepatitis C Antibody Reactive (Nonreactive)
== END 2023-01-21 09:56 | disposition home or self-care (01) ==
LOC: HO.LAB 09:55
PROVIDERS: PCP Family Medicine; Visit Provider Nurse Practitioner Family
DX: K76.9 Liver disease, unspecified (principal); E11.9 Type 2 diabetes mellitus without complications; I10 Essential (primary) hypertension
CPT/HCPCS: 36415; 80053; 80061; 82043; 84443; 85025; 86704; 86706; 86709; 86803; 87340

== ENCOUNTER 2023-02-04 08:05 | Outpatient (REF) | payer OTHER, SELFPAY ==
[2023-02-05 04:33] LABS: HBS Num1 0.24 mIU/mL (0-7.99); HBc Num1 0.06 S/CO (0.00-0.79); HBsAGNum1 0.37 S/CO (0.00-0.99); HIV AB/AG Nonreactive (Nonreactive); HIV Num 1 0.06 S/CO (0.00-0.99); Hepatitis A Antibody IgM 0.22 Index (0-0.79); Hepatitis B Core Antibody Nonreactive (Nonreactive); Hepatitis B Surface Antigen Negative (Negative); ~HepC Num1 14.18 S/CO (0.00-0.79); ~Hepatitis A Antibody IgM Nonreactive (Nonreactive); ~Hepatitis B Surface Antibody NONREACTIVE (Nonreactive); ~Hepatitis C Antibody Reactive (Nonreactive)
[2023-02-08 13:53] LABS: Hepatitis B Viral DNA Qn - cp NOT DETECTED Log IU/mL (NOT DETECTED); Hepatitis B Viral DNA Qn-IU/mL NOT DETECTED (NOT DETECTED)
[2023-02-09 18:19] LABS: HCV Genotype LiPA 1a
[2023-02-09 19:13] LABS: Hepatitis Delta Antibody NEGATIVE
== END 2023-02-04 08:06 | disposition home or self-care (01) ==
LOC: HO.LAB 08:05
PROVIDERS: PCP Family Medicine; Visit Provider Nurse Practitioner Family
DX: K74.60 Unspecified cirrhosis of liver (principal); R79.89 Other specified abnormal findings of blood chemistry; B18.2 Chronic viral hepatitis C; K62.89 Other specified diseases of anus and rectum; Z86.19 Personal history of other infectious and parasitic diseases
CPT/HCPCS: 36415; 86692; 86704; 86706; 86709; 86803; 87340; 87389; 87517; 87522; 87902; 99202

== ENCOUNTER 2023-02-04 08:05 | Outpatient (AMB) | payer OTHER, SELFPAY ==
--- NOTE | 2023-02-04 08:08 | A.OFFVIS_ITS ---
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 female here today for pre colonoscopy screening.? Patient was sent to us by his PCP. Last colonoscopy in July of 2012.? Patient reports constipation with diarrhea on and off, depending on what he eats.? Patie nt has rectal pain and no bleed. Thinks maybe hemorrhoids. Denies any personal or family history of gastrointestinal disease, colon polyps, or cancer.? History of brain bleed in October of 2020. Patient refused to be admitted to [facility] for neurosurgery and left AMA. Head repeated CT scan in December 2021 that showed no bleed no acute findings. Patient has no residual only drooling when extremely tired. Denies history of difficulty with sedation or anesthesia in the past.? Negative for history of sleep apnea.? Denies any history of cardiac, renal, pulmonary, or hepatic disease.?? Patient reports history of hep C, diagnosed few years ago. Was started treatment with interferon and stopped. Would like to be treated now. Patient states that he drinks alcohol, however significantly less than he used to. He is trying to quit.? Patient is not on any anticoagulation therapy. [facility] Medical History (Updated 02/04/23 @ 11:19 by Claudia Huntley [facility]) Asthma Diabetes mellitus HTN (hypertension) Intracranial hemorrhage Surgical History History of colonoscopy History of gallstones History of tonsillectomy Family History Father HTN (hypertension) CVD (cardiovascular disease) Diabetes mellitus Mother HTN (hypertension) CVD (cardiovascular disease) Diabetes mellitus Sister No problems noted. Sister No problems noted. Sister Breast cancer Son No problems noted. Social History Household Members: Spouse Housing: Apartment Are you a primary day care attendant to a significant other at home: No Do you presently have visiting nurse or other home services: No 75 years or older and lives alone: No Alcohol intake: current Alcohol intake frequency: holidays/special occasions only Patient Tobacco Use Status: Former Tobacco user Tobacco use type: Cigarette Cigarettes Per Day: 10 Years Smoked: 2 e-Cigarette/Vaping Use: Never Used Second Hand Smoke Exposure: No Special florencia needs: No Agree to transfusion: Yes service: No 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al status: unemployed 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al exposures/hazards: No Sexual orientation: Straight/Heterosexual Gender identity: Male Cognitive needs: No Hearing needs: Yes Vision needs: Yes Review of Systems Const Denies weight gain and Denies weight loss ENT Reports no additional complaints, Denies dysphagia and Denies odynophagia Card Reports no additional complaints Resp Reports no additional complaints GI Denies abdominal pain, Denies belching, Denies melena, Denies bloating, Denies change in bowel habits, Denies dysphagia, Denies excessive flatus, Denies dyspepsia, Denies heartburn, Denies diarrhea, Denies loose stools, Denies nausea, Denies odynophagia, Denies vomiting and Reports other (rectal pain) Reports no additional complaints Musc Reports no additional complaints Neuro Reports no additional complaints Psych Reports no additional complaints Endo Reports no additional complaints Physical Exam Vital Signs: Last Vital Signs Pulse 79 02/04/23 08:09 BP 139/70 02/04/23 08:09 BMI result Body Mass Index 19.9 Const General: no acute distress and well developed Nutritional Appearance: underweight Orientation/consciousness: patient oriented x3 HEENT Head: Yes normal to inspection, Yes normocephalic and Yes atraumatic Face and sinus: Yes normal facial exam Mouth: Normal oral and palatal mucosa present Throat: Yes posterior oropharynx normal, Yes tonsils normal and Yes uvula midline Eyes General: appearance normal, both eyes and all related structures Neck Neck: Yes normal visual inspection, Yes full ROM and Yes trachea midline Thyroid: Thyroid normal Resp Effort & Inspection: normal respiratory effort, able to speak in complete sentences, no tracheal deviation and symmetric chest movement Auscultation: clear to auscultation bilaterally Cardio Rate: regular rate Heart sounds: S1 normal heart sound present and S2 normal heart sound present GI Inspection: Yes normal to inspection and No distended Palpation (GI): Soft to palpation, not firm, nontender and No hepatosplenomegaly present Auscultation: normal bowel sounds General: Yes no CVA tenderness Back/Spine/Pelvis Back: no CVA tenderness Skin General skin exam: elasticity normal, turgor normal and dry skin Neuro General: patient oriented x3 Psych Appearance: grossly normal Mental Status: mental status grossly normal Speech and movement: Normal speech and movement present Affect: normal affect Assessment & Plan Assessment & Plan (1) Hepatitis C: Code(s): B19.20 - Unspecified viral hepatitis C without hepatic coma Qualifiers: Hepatic coma status: without hepatic coma Viral hepatitis chronicity: chronic Qualified Code(s): B18.2 - Chronic viral hepatitis C Plan: Possible acute on chronic hep C. Will send patient for more blood work. Patient is requesting to be treated if positive. Incomplete treatment in the past with interferon (2) Rectal pain: Code(s): K62.89 - Other specified diseases of anus and rectum Plan: Patient reports occasional rectal pain, occasional blood after having bowel movement periods denies melena, hematochezia, unintentional weight loss or ribbon like stools. Patient will be given script for Proctosol and will be sent for colonoscopy (3) Screening for colon cancer: Code(s): Z12.11 - Encounter for screening for malignant neoplasm of colon Plan: Will send patient prep for colonoscopy. Patient will return in 3 weeks to discuss how to prep for the procedure. Last colonoscopy in July of 2022 was normal. Diverticulosis found no polyps. Patient is being sent for blood work to check for active hep C. Will need to be treated if positive. Patient is agreeing to the treatment now. He is agreeable to plan of care and verbalizes understanding of instructions. He was given the opportunity to ask questions and all questions answered. Thank you for allowing me to participate in his care Orders: Orders Hepatitis B Viral DNA Qn Today K74.60 - Unspecified cirrhosis of liver Hepatitis A,B,C Profile Today R7.89 - Other specified abnormal findings of blood chemistry Hepatitis C Genotype Today B19.20 - Unspecified viral hepatitis C without hepatic coma Hepatitis C Viral Load Today Z86.19 - Personal history of other infectious and parasitic diseases HIV Ab/Ag Today R79.89 - Other specified abnormal findings of blood chemistry Hepatitis Delta Antibody Today Z86.19 - Personal history of other infectious and parasitic diseases Medications: New hydrocortisone 2.5% (Proctosol HC) 1 appl PA BID-QID PRN 30 grams 2RF hemorrhoids K64.9 - Unspecified hemorrhoids Coding Level of Care Code New Pt Level 4 (08837) Diagnoses Hepatitis C B18.2 Hepatic coma status: without hepatic coma Viral hepatitis chronicity: chronic Rectal pain K62.89 Screening for colon cancer Z12.11 Time Spent (min) 45 Comment 30 minutes spent with patient and additional 15 minutes spent reviewing his records
[2023-02-04 08:09] VITALS: BP 139/70; PULSE 79; BMI 19.9
== END 2023-02-04 08:51 | disposition home or self-care (01) ==
PROVIDERS: PCP Family Medicine; Visit Provider Nurse Practitioner Family
DX: B18.2 Chronic viral hepatitis C (principal); K62.89 Other specified diseases of anus and rectum; Z12.11 Encounter for screening for malignant neoplasm of colon
CPT/HCPCS: 99204

== ENCOUNTER 2023-02-19 08:17 | Outpatient (AMB) | payer OTHER, SELFPAY ==
[2023-02-19 08:35] VITALS: BP 124/78; PULSE 92; O2SAT 98; BMI 19.5
--- NOTE | 2023-02-19 08:35 | A.OFFPC_ITS ---
Vital Signs 02/19/23 08:35 Height 6 ft 6 in Weight 168 lb 8 oz BMI 19.5 BP 124/78 Blood Pressure Location Lt brachial Position Sitting Pulse 92 Pulse Source Pulse Oximeter Pulse Oximetry (%) 98 Oxygen Delivery Method Room Air Intake Visit Reasons: f/u HTN, diabetes and wounds Intake Note: Patient is here for follow up on hypertension, diabetes, and wounds. Allergies aspirin [ASPIRIN] Allergy (Unknown, Verified 02/19/23 08:37) ITCH Sinus Allergy (Unknown, Uncoded 02/19/23 08:37) unknown Medication List - Last Reconciled 02/19/23 by Mic Cordero MD blood pressure monitor Automatic, Digital. Dx: I10. Daily As directed, 999 days/lifetime cetirizine (All Day Allergy (cetirizine)) 10 mg PO DAILY 90 days fluticasone propionate 50 mcg/actuation (Flonase Allergy Relief) 1 spray intranasal Q12H 30 days gabapentin 300 mg PO BID 30 days hydrocortisone 2.5% (Proctosol HC) 1 appl HI BID-QID PRN insulin glargine (Basaglar KwikPen U-100 Insulin) 50 units (0.5 mL) subcut QPM 30 days lisinopril-hydrochlorothiazide 20-12.5 mg 1 tab PO DAILY 30 days metformin 500 mg PO BID 90 days pen needle, diabetic (BD Vida 2nd Gen Pen Needle) DX: E11.9, daily As directed to treat blood sugar, 90 day supply trazodone 50 mg PO BEDTIME 30 days Tobacco use date assessed: 02/19/23 Dental Screening Dental Screen Date: 02/19/23 Did you have a dental visit in the last 12 months?: No Did you have a dental problem in the last 6 months where you did not have access to dental care?: No Was dental information given to patient?: No HPI f/u HTN, diabetes and wounds HPI Details 62 y/o male presents to f/u hypertension and diabetes. Blood pressure today 124/78. He is on lisinopril-HCTZ 20-12.5mg daily. Pt had noted last office visit he has had high blood sugars at home along with low blood sugars as well. Was referred to endocrinology. Last A1c 01/18/23 was 8.9%, which had increased from 5.9%. He had been out of his diabetes medications. Pt has complaints of a wound on his L hand after a fall. [facility] Medical History Asthma Diabetes mellitus HTN (hypertension) Intracranial hemorrhage Surgical History History of colonoscopy History of gallstones History of tonsillectomy Family History Father HTN (hypertension) CVD (cardiovascular disease) Diabetes mellitus Mother HTN (hypertension) CVD (cardiovascular disease) Diabetes mellitus Sister No problems noted. Sister No problems noted. Sister Breast cancer Son No problems noted. Social History Household Members: Spouse Housing: Apartment Are you a primary child care education coordinator to a significant other at home: No Do you presently have visiting nurse or other home services: No 75 years or older and lives alone: No Alcohol intake: current Alcohol intake frequency: holidays/special occasions only Patient Tobacco Use Status: Former Tobacco user Tobacco use type: Cigarette Cigarettes Per Day: 10 Years Smoked: 2 e-Cigarette/Vaping Use: Never Used Second Hand Smoke Exposure: No Special florencia needs: No Agree to transfusion: Yes service: No 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al status: unemployed 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al exposures/hazards: No Sexual orientation: Straight/Heterosexual Gender identity: Male Cognitive needs: No Hearing needs: Yes Vision needs: Yes Questionnaire Thrive Questionnaire Date Thrive assessed: 01/18/23 RIKI-7 AMB Questionnaire RIKI-7 Date RIKI - 7 assessed: 01/18/23 Source: Developed by Drs. Erik Napoles, Genie Hernandez, Stew Edge and colleagues, with an educational sami from [employer]. Review of Systems Const Denies chills, Denies fatigue, Denies fever(s), Denies headache(s) and Denies weakness ENT Denies dizziness and Denies headache(s) Card Denies dyspnea Resp Denies cough, Denies dyspnea, Denies wheezing and Denies other (shortness of breath) Musc Denies numbness and Denies tingling Neuro Denies dizziness, Denies headache(s), Denies numbness, Denies tingling and Denie s weakness Psych Denies anxiety and Denies depression Endo Denies fatigue Aller/Immun Denies wheezing Physical exam (Primary Care) Vital Signs: Last Vital Signs Pulse 92 02/19/23 08:35 BP 124/78 02/19/23 08:35 Pulse Ox 98 02/19/23 08:35 Oxygen Delivery Method Room Air 02/19/23 08:35 BMI result Body Mass Index 19.5 Tobacco/Smoking Status: Tobacco use Status Tobacco use date assessed 02/19/23 02/19/23 08:43 Patient Tobacco Use Status Former Tobacco user 02/19/23 08:37 Tobacco use type Cigarette 02/19/23 08:37 e-Cigarette/Vaping Use Never Used 02/19/23 08:37 Thrive Assessment: Date of Thrive Assessment Date Thrive assessed 01/18/23 02/19/23 08:37 Const General: well developed; No acute distress Nutritional Appearance: well nourished Orientation/consciousness: patient oriented x3 HENMT Head: Yes normocephalic and Yes atraumatic Eyes General: appearance normal, both eyes and all related structures Pupils: Equal, round and reactive pupils present EOM: EOMs intact bilaterally Resp Effort & Inspection: normal respiratory effort Skin Other: 3x2 cm infection L posterior hand over the distal second metacarpal Neuro General: patient oriented x3 and gait normal Cranial nerves: Yes Equal, round and reactive pupils present Psych Affect: normal affect Assessment and Plan Assessment & Plan (1) Essential hypertension: Code(s): I10 - Essential (primary) hypertension (2) Uncontrolled diabetes mellitus with hyperglycemia: Code(s): E11.65 - Type 2 diabetes mellitus with hyperglycemia (3) Elevated serum creatinine: Code(s): R79.89 - Other specified abnormal findings of blood chemistry Plan: Recheck labs (4) Wound of skin: Code(s): T14.8XXA - Other injury of unspecified body region, initial encounter Plan: Infected wound at left hand after a fall Give patient Tdap today Start cephalexin Fairly large infected wound and I have referred him to wound care. Orders: Orders Basic Metabolic Panel Today I10 - Essential (primary) hypertension, Z00.00 - Encounter for general adult medical examination without abnormal findings Complete Blood Count Auto Diff Today I10 - Essential (primary) hypertension, Z00.00 - Encounter for general adult medical examination without abnormal findings TDaP Immunization Today Z23 - Encounter for immunization Medications: New Boostrix Tdap (diphth,pertus(acell),tetanus) 0.5 mL IM ONCE 0.5 mL 0RF NS Z23 - Encounter for immunization cephalexin 500 mg PO Q12H 10 days 20 caps 0RF Changed From insulin glargine (Basaglar KwikPen U-100 Insulin) 50 units (0.5 mL) subcut QPM 30 days 15 mL 4RF To insulin glargine (Basaglar KwikPen U-100 Insulin) 50 units (0.5 mL) subcut QPM 90 days 45 mL 4RF From lisinopril-hydrochlorothiazide 20-12.5 mg 1 tab PO DAILY 30 days 30 tabs 1RF To lisinopril-hydrochlorothiazide 20-12.5 mg 1 tab PO DAILY 90 days 90 tabs 3RF Refilled metformin 500 mg PO BID 90 days 180 tabs 3RF Coding Level of Care Code Est Pt Level 3 (47443) Diagnoses Essential hypertension I10 Uncontrolled diabetes mellitus with hyperglycemia E11.65 Elevated serum creatinine R79.89 Wound of skin T14.8XXA
== END 2023-02-19 09:12 | disposition home or self-care (01) ==
PROVIDERS: PCP Family Medicine; Visit Provider Family Medicine
DX: I10 Essential (primary) hypertension (principal); E11.65 Type 2 diabetes mellitus with hyperglycemia; R79.89 Other specified abnormal findings of blood chemistry; T14.8XXA Other injury of unspecified body region, initial encounter; Z23 Encounter for immunization
CPT/HCPCS: 90471; 90715; 99213

== ENCOUNTER 2023-02-19 09:13 | Outpatient (REF) | payer OTHER, SELFPAY ==
[2023-02-19 11:09] LABS: MANUAL DIFF FLAG NO
[2023-02-19 11:29] LABS: Basophils Absolute Auto 0.1 X10*3/uL (0.0-0.2); Basophils Percent Auto 0.6 % (0-2); Eosinophils Absolute Auto 0.2 X10*3/uL (0.0-0.4); Eosinophils Percent Auto 1.6 % (0-4); Hemoglobin 14.6 g/dl (14.0-18.0); Imm Gran Abs Auto 0.21 X10*3/uL (0.00-0.03); Imm Gran Pct Auto 1.6 % (0.0-0.4); Lymphocytes Absolute Auto 3.3 X10*3/uL (1.2-4.9); Lymphocytes Percent Auto 25.7 % (20-40); Mean Corpuscular HGB Conc 32.4 g/dl (31.0-36.0); Mean Corpuscular Hemoglobin 29.7 pg (27.0-33.0); Mean Corpuscular Volume 91.6 fL (80.0-98.0); Mean Platelet Volume 10.6 fL (9.4-12.4); Monocytes Absolute Auto 1.3 X10*3/uL (0.1-1.2); Monocytes Percent Auto 10.3 % (2-11); Neutrophils Absolute Auto 7.7 x10*3/uL (2.0-8.3); Neutrophils Percent Auto 60.2 % (45-73); Platelet Count 305 X10*3/uL (160-400); Red Blood Count 4.91 X10*6/uL (4.60-5.80); Red Cell Distribution Width 13.2 % (11.0-16.0); White Blood Count 12.8 X10*3/uL (4.8-10.8)
[2023-02-19 12:03] LABS: Anion Gap 9 (12-20); Blood Urea Nitrogen 15 mg/dL (9-16); Calcium 9.9 mg/dL (8.4-10.2); Carbon Dioxide 26 mmol/L (22-29); Chloride 105 mmol/L (96-108); Estimated Glomerular Filt Rate > 60; Glucose Random 178 mg/dL (60-115); Potassium 4.3 mmol/L (3.3-5.1); Sodium 136 mmol/L (135-145)
[2023-02-20 12:43] LABS: HCV RNA PCR Qn 6.46 Log IU/mL (NOT DETECTED)
[2023-02-24 22:34] LABS: HCV Genotype LiPA 1a
== END 2023-02-19 09:14 | disposition home or self-care (01) ==
LOC: HO.WFDLDS 09:13
PROVIDERS: Nurse Practitioner Family; Visit Provider Family Medicine
DX: Z00.00 Encounter for general adult medical examination without abnormal findings (principal); I10 Essential (primary) hypertension
CPT/HCPCS: 36415; 80048; 85025; 87522; 87902

== ENCOUNTER 2023-02-26 08:58 | Outpatient (AMB) | payer OTHER, SELFPAY ==
--- NOTE | 2023-02-26 09:01 | A.OFFVIS_ITS ---
Intake Vital Signs 02/26/23 09:02 Height 6 ft 6 in Weight 170 lb 10.205 oz BMI 19.7 BP 149/82 H Blood Pressure Location Lt brachial Position Sitting Pulse 66 Intake Visit Reasons: 3 week follow up Intake Note: Arvind presents in office as a est.patient for a 3week f/u for Hepatitis C pt got bloodwork done PT CC: pt reports having RLQP pt denies any other GI Issues Digital Engineer Required: No Accompanied by: Self / Same As Patient Allergies aspirin [ASPIRIN] Allergy (Unknown, Verified 02/26/23 09:02) ITCH Sinus Allergy (Unknown, Uncoded 02/26/23 09:02) unknown HPI 3 week follow up HPI Details LAST VISIT Hepatitis C Possible acute on chronic hep C. Will send patient for more blood work. Patient is requesting to be treated if positive. Incomplete treatment in the past with interferon Rectal pain Patient reports occasional rectal pain, occasional blood after having bowel movement periods denies melena, hematochezia, unintentional weight loss or r ibbon like stools. Patient will be given script for Proctosol and will be sent for colonoscopy Screening for colon cancer Will send patient prep for colonoscopy. Patient will return in 3 weeks to discuss how to prep for the procedure. Last colonoscopy in July of 2012 was normal. Diverticulosis found no polyps. Patient is being sent for blood work to check for active hep C. Will need to be treated if positive. Patient is agreeing to the treatment now. He is agreeable to plan of care and verbalizes understanding of instructions. He was given the opportunity to ask questions and all questions answered. ? Thank you for allowing me to participate in his care Plan Orders Orders Hepatitis B Viral DNA Qn Today K74.60 Hepatitis A,B,C Profile Today R79.89 Hepatitis C Genotype Today B19.20 Hepatitis C Viral Load Today Z86.19 HIV Ab/Ag Today R79.89 Hepatitis Delta Antibody Today Z86.19 Medications New hydrocortisone 2.5% (Proctosol HC) 1 appl OR BID-QID PRN 30 grams 2RF hemorrhoids K64.9 TODAY'S VISIT: Labs reviewed with patient. Increased viral load for hep C. Acute on chronic hepatitis C. Patient wants to be treated. Patient reports that he was treated in the past with interferon. Negative hep B, HIV and hep A. Patient reports to be feeling tired. Reports dysphagia. Patient denies nausea or vomiting. Patient denies melena, Hematochezia or ribbon like stools. Patient reports that he does not have much appetite. The poorly healing wounds to his left and right hand. [facility] Medical History Asthma Diabetes mellitus HTN (hypertension) Intracranial hemorrhage Surgical History History of colonoscopy History of gallstones History of tonsillectomy Family History Father HTN (hypertension) CVD (cardiovascular disease) Diabetes mellitus Mother HTN (hypertension) CVD (cardiovascular disease) Diabetes mellitus Sister No problems noted. Sister No problems noted. Sister Breast cancer Son No problems noted. Social History Household Members: Spouse Housing: Apartment Are you a primary care team coordinator scheduler to a significant other at home: No Do you presently have visiting nurse or other home services: No 75 years or older and lives alone: No Alcohol intake: current Alcohol intake frequency: holidays/special occasions only Patient Tobacco Use Status: Former Tobacco user Tobacco use type: Cigarette Cigarettes Per Day: 10 Years Smoked: 2 e-Cigarette/Vaping Use: Never Used Second Hand Smoke Exposure: No Special florencia needs: No Agree to transfusion: Yes service: No 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al status: unemployed 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al exposures/hazards: No Sexual orientation: Straight/Heterosexual Gender identity: Male Cognitive needs: No Hearing needs: Yes Vision needs: Yes Review of Systems Const Details: feeling tired Denies weight gain and Denies weight loss ENT Reports no additional complaints, Denies dysphagia and Denies odynophagia Card Reports no additional complaints Resp Reports no additional complaints GI Denies abdominal pain, Denies belching, Denies melena, Denies bloating, Denies change in bowel habits, Denies dysphagia, Denies excessive flatus, Denies dyspepsia, Denies heartburn, Denies diarrhea, Denies loose stools, Denies nausea, Denies odynophagia and Denies vomiting Reports no additional complaints Musc Reports no additional complaints Neuro Reports no additional complaints Psych Reports no additional complaints Endo Reports no additional complaints Physical Exam Vital Signs: Last Vital Signs Pulse 66 02/26/23 09:02 BP 149/82 H 02/26/23 09:02 BMI result Body Mass Index 19.7 Const General: healthy appearing, no acute distress and well developed Nutritional Appearance: thin Orientation/consciousness: patient oriented x3 HEENT Head: Yes normal to inspection, Yes normocephalic and Yes atraumatic Face and sinus: Yes normal facial exam Mouth: Normal oral and palatal mucosa present Throat: Yes posterior oropharynx normal, Yes tonsils normal and Yes uvula midline Eyes General: appearance normal, both eyes and all related structures Neck Neck: Yes normal visual inspection, Yes full ROM and Yes trachea midline Thyroid: Thyroid normal Resp Effort & Inspection: normal respiratory effort, able to speak in complete sentences, no tracheal deviation and symmetric chest movement Auscultation: clear to auscultation bilaterally Cardio Rate: regular rate Heart sounds: S1 normal heart sound present and S2 normal heart sound present GI Inspection: Yes normal to inspection and No distended Palpation (GI): Soft to palpation, not firm, nontender and No hepatosplenomegaly present Auscultation: normal bowel sounds General: Yes no CVA tenderness Back/Spine/Pelvis Back: no CVA tenderness Skin Other: Blisters to bilateral hands General skin exam: elasticity normal, turgor normal and dry skin Neuro General: patient oriented x3 Psych Appearance: grossly normal Mental Status: mental status grossly normal Speech and movement: Normal speech and movement present Assessment & Plan Assessment & Plan (1) Hepatitis C: Code(s): B19.20 - Unspecified viral hepatitis C without hepatic coma Qualifiers: Hepatic coma status: without hepatic coma Viral hepatitis chronicity: chronic Qualified Code(s): B18.2 - Chronic viral hepatitis C Plan: Patient will start Epclusa, will work on PA. patient will need to monitor his blood sugars as viral here at occasion may change hepatic function, alter blood glucose control resulting in symptomatic hypoglycemia (2) Dysphagia: Code(s): R13.10 - Dysphagia, unspecified Qualifiers: Dysphagia type: oropharyngeal phase Qualified Code(s): R13.12 - Dysphagia, oropharyngeal phase Plan Patient reports trouble swallowing will send patient he for barium swallow. Will start him on famotidine on as needed basis. Will hold off on ordering PPI for now as changing gastric Ph might alter absorption of Epclusa I will see patient in 2 weeks we will check viral load. Patient will receive hep a and hep B vaccine next visit. Patient is agreeable to this plan and verbalizes understanding of instructions. He was given the opportunity to ask questions and all questions answered. Thank you for allowing me to participate in his care will Orders: Orders [place] barium swallow Today R13.10 - Dysphagia, unspecified US abdomen comp w elastography Today B19.20 - Unspecified viral hepatitis C without hepatic coma, R79.89 - Other specified abnormal findings of blood chemistry Medications: New sofosbuvir-velpatasvir 400-100 mg (Epclusa) 1 tab PO DAILY 12 weeks 84 tabs 0RF famotidine (Pepcid) 20 mg PO BID 60 tabs 3RF K29.70 - Gastritis, unspecified, without bleeding Coding Level of Care Code Est Pt Level 4 (38645) Diagnoses Hepatitis C B18.2 Hepatic coma status: without hepatic coma Viral hepatitis chronicity: chronic Dysphagia R13.12 Dysphagia type: oropharyngeal phase Time Spent (min) 35 Comment 25 minute spent with patient and additional 10 minutes spent reviewing his records
[2023-02-26 09:02] VITALS: BP 149/82; PULSE 66; BMI 19.7
== END 2023-02-26 09:29 | disposition home or self-care (01) ==
PROVIDERS: PCP Family Medicine; Visit Provider Nurse Practitioner Family
DX: B18.2 Chronic viral hepatitis C (principal); R13.12 Dysphagia, oropharyngeal phase
CPT/HCPCS: 99214

== ENCOUNTER → 2023-02-26 08:58 | Outpatient (BNVA) | payer OTHER, SELFPAY | PROVIDERS: PCP Family Medicine; Visit Provider Nurse Practitioner Family | DX: B18.2 Chronic viral hepatitis C (principal); R13.12 Dysphagia, oropharyngeal phase | CPT/HCPCS: 99212 ==

== ENCOUNTER 2023-03-08 10:16 | Outpatient (REF) | payer OTHER, SELFPAY ==
--- NOTE | ~2023-03-08 | US_ITS ---
EXAMINATION: US COMPLETE ABDOMEN WITH LIVER ELASTOGRAPHY CLINICAL INFORMATION: Abnormal liver function tests. COMPARISON: Abdominal ultrasound dated 06/16/2018; CT abdomen and pelvis dated 09/25/2018. TECHNIQUE: Real-time imaging of the abdominal viscera. Noninvasive ultrasound liver fibrosis assessment is performed using Irma ElastPQ point quantification shear wave elastography (2D-SWE) with a C5-2 MHz transducer. Multiple elastography samples are obtained. FINDINGS: PANCREAS: Normal. The visualized pancreatic head and body are normal in appearance. The remainder of the pancreas is obscured from visualization by the overlying bowel gas. ABDOMINAL AORTA: The proximal, middle, and distal aortic segments are normal in caliber. INFERIOR VENA CAVA: Visualized portions are normal. LIVER: Normal. The liver demonstrates normal size, contour and echogenicity. No focal lesion or intrahepatic biliary duct dilatation. The right lobe measures 18.3 cm in length. The left lobe measures 12.1 cm in length. Portal flow is towards the liver (hepatopetal). Shear wave liver elastography median stiffness is 1.65 m/s (reference: normal median stiffness is 1.3 m/s or less). IQR/median stiffness to assess sampling precision is 0.10 (reference: good quality data set is IQR/median stiffness of 0.15 or less). GALLBLADDER: Within the gallbladder fundus, 5 mm and 2 mm nodule without polyps are noted. The gallbladder is physiologically distended without evidence of stones, sludge, polyps, wall thickening or pericholecystic fluid. COMMON BILE DUCT: Normal in caliber measuring 0.5 cm in diameter. RIGHT KIDNEY: At the interpolar aspect, a 6 mm benign, simple cyst is seen, which require no imaging follow-up. No hydronephrosis. No renal calculi or focal parenchymal solid lesions. The kidney measures 12.0 cm in maximum dimension. LEFT KIDNEY: At the lower pole, a 1.8 cm benign, simple cyst is seen, which requires no imaging follow-up. No hydronephrosis. No renal calculi or focal parenchymal solid lesions. The kidney measures cm in maximum dimension. SPLEEN: Anteriorly, a 7 x 6 x 6 mm hyperechoic, circumscribed mass is seen, with ultrasound features characteristic for a benign hemangioma.. The spleen measures 12.7 cm in maximum dimension. FREE FLUID: None. US/US abdomen comp w elastography IMPRESSION: 1. There is generalized increase in hepatic echotexture, consistent with fatty infiltration or hepatocellular disease. Please correlate clinically. No focal hepatic mass or intrahepatic biliary dilatation is seen. 2. There is hepatomegaly. 3. Liver elastography: In the absence of other known clinical signs, measurements rule out compensated advanced chronic liver disease. If there are known clinical signs, further testing may be needed for confirmation. 4. 5 mm and 2 mm nonmobile gallbladder polyps are newly seen. As a precaution, a repeat abdominal ultrasound examination is recommended in 6 months to ensure stability. 5. A 7 mm hyperechoic, circumscribed mass is seen within the spleen, likely a benign hemangioma. REFERENCE: Society of Radiologists in Ultrasound Liver Stiffness Thresholds (2020): LIVER STIFFNESS THRESHOLDS: *Liver Stiffness equal or less than 1.3 m/s: High probability of being normal. *Liver Stiffness less than 1.7 m/s: In the absence of other known clinical signs, rules out compensated advanced chronic liver disease. *Liver Stiffness 1.7-2.1 m/s: Suggestive of compensated advanced chronic liver disease but need further test for confirmation. *Liver Stiffness over 2.1 m/s: Rules in compensated advanced chronic liver disease. *Liver Stiffness over 2.4 m/s: Suggestive of clinically significant portal hypertension. QUALITY OF DATA SET: *IQR/Median value equal or less than 0.15 implies a quality data set. *IQR/Median value over 0.15 implies a poor quality data set. SIGNIFICANT CHANGE FROM PRIOR EXAM: Significant change if liver stiffness measurement is 10% or greater from prior exam. OTHER CONSIDERATIONS: The stage of liver fibrosis may be overestimated in the setting of acute hepatitis, liver inflammation, elevated liver function tests, hepatic vascular congestion, obstructive cholestasis, non-fasting state, and infiltrative diseases such as amyloidosis and lymphoma. In some patients with NAFLD, the liver stiffness thresholds for compensated advanced chronic liver disease may be lower. In causes other than viral hepatitis and NAFLD, liver stiffness thresholds are not well established.
== END 2023-03-08 10:17 | disposition home or self-care (01) ==
LOC: HO.US 10:16
PROVIDERS: PCP Family Medicine; Visit Provider Nurse Practitioner Family
DX: B19.20 Unspecified viral hepatitis C without hepatic coma (principal); R79.89 Other specified abnormal findings of blood chemistry
CPT/HCPCS: 76705; 76981

== ENCOUNTER 2023-03-12 08:44 | Outpatient (AMB) | payer OTHER, SELFPAY ==
--- NOTE | 2023-03-12 08:48 | A.OFFVIS_ITS ---
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 patient will need to monitor his blood sugars as viral here at occasion may change hepatic function, alter blood glucose control resulting in symptomatic hypoglycemia Dysphagia Plan Patient reports trouble swallowing will send patient he for barium swallow. Will start him on famotidine on as needed basis. Will hold off on ordering PPI for now as changing gastric Ph might alter absorption of Epclusa I will see patient in 2 weeks we will check viral load. Patient will receive hep a and hep B vaccine next visit. Patient is agreeable to this plan and verbalizes understanding of instructions. He was given the opportunity to ask questions and all questions answered. ? Thank you for allowing me to participate in his care will Orders Orders FL barium swallow Today R13.10 US abdomen comp w elastography Today B19.20, R79.89 Medications New sofosbuvir-velpatasvir 400-100 mg (Epclusa) 1 tab PO DAILY 12 weeks 84 tabs 0RF famotidine (Pepcid) 20 mg PO BID 60 tabs 3RF K29.70 TODAY'S VISIT: Patient is here today for follow-up. Patient had abdominal ultrasound no report yet. Patient is going for barium swallow on the of this month. He has not received his medication yet. Will work on PA with RN today. Patient will be receiving hep a and hep B vaccine. Patient states that he continues to have mild dysphagia. Reports that Pepcid is not really working for him. Patient denies any nausea or vomiting. Reports occasional dyspepsia. Patient denies melena, hematochezia, unintentional weight loss or ribbon like stools. Patient would like to wait for colonoscopy until he is treated for hep C. COUNTS INCLUDE 234 BEDS AT THE [facility] Medical History Asthma Diabetes mellitus HTN (hypertension) Intracranial hemorrhage Surgical History History of colonoscopy History of gallstones History of tonsillectomy Family History Father HTN (hypertension) CVD (cardiovascular disease) Diabetes mellitus Mother HTN (hypertension) CVD (cardiovascular disease) Diabetes mellitus Sister No problems noted. Sister No problems noted. Sister Breast cancer Son No problems noted. Social History Household Members: Spouse Housing: Apartment Are you a primary health care social worker to a significant other at home: No Do you presently have visiting nurse or other home services: No 75 years or older and lives alone: No Alcohol intake: current Alcohol intake frequency: holidays/special occasions only Patient Tobacco Use Status: Former Tobacco user Tobacco use type: Cigarette Cigarettes Per Day: 10 Years Smoked: 2 e-Cigarette/Vaping Use: Never Used Second Hand Smoke Exposure: No Special florencia needs: No Agree to transfusion: Yes service: No 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al status: unemployed 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al exposures/hazards: No Sexual orientation: Straight/Heterosexual Gender identity: Male Cognitive needs: No Hearing needs: Yes Vision needs: Yes Review of Systems Const Denies weight gain and Denies weight loss ENT Reports no additional complaints, Reports dysphagia and Denies odynophagia Card Reports no additional complaints Resp Reports no additional complaints GI Denies abdominal pain, Denies belching, Denies melena, Denies bloating, Denies change in bowel habits, Reports dysphagia, Denies excessive flatus, Denies dyspepsia, Denies heartburn, Denies diarrhea, Denies loose stools, Denies nausea, Denies odynophagia and Denies vomiting Reports no additional complaints Musc Reports no additional complaints Neuro Reports no additional complaints Psych Reports no additional complaints Endo Reports no additional complaints Physical Exam Vital Signs: Last Vital Signs Pulse 81 03/12/23 08:49 BP 128/78 03/12/23 08:49 BMI result Body Mass Index 19.4 Const General: healthy appearing, no acute distress and well developed Nutritional Appearance: well nourished Orientation/consciousness: patient oriented x3 HEENT Head: Yes normal to inspection, Yes normocephalic and Yes atraumatic Face and sinus: Yes normal facial exam Mouth: Normal oral and palatal mucosa present Throat: Yes posterior oropharynx normal, Yes tonsils normal and Yes uvula midline Eyes General: appearance normal, both eyes and all related structures Neck Neck: Yes normal visual inspection, Yes full ROM and Yes trachea midline Thyroid: Thyroid normal Resp Effort & Inspection: normal respiratory effort, able to speak in complete sen tences, no tracheal deviation and symmetric chest movement Auscultation: clear to auscultation bilaterally Cardio Rate: regular rate Heart sounds: S1 normal heart sound present and S2 normal heart sound present GI Inspection: Yes normal to inspection and No distended Palpation (GI): Soft to palpation, not firm, nontender and No hepatosplenomegaly present Auscultation: normal bowel sounds General: Yes no CVA tenderness Back/Spine/Pelvis Back: no CVA tenderness Skin General skin exam: elasticity normal, turgor normal and dry skin Neuro General: patient oriented x3 Psych Appearance: grossly normal Mental Status: mental status grossly normal Speech and movement: Normal speech and movement present Assessment & Plan Assessment & Plan (1) Hepatitis C: Code(s): B19.20 - Unspecified viral hepatitis C without hepatic coma Qualifiers: Viral hepatitis chronicity: chronic Hepatic coma status: without he patic coma Qualified Code(s): B18.2 - Chronic viral hepatitis C (2) Dysphagia: Code(s): R13.10 - Dysphagia, unspecified Plan Hep A and hep B vaccine today. Will work on getting PA for Epclusa. Patient will get barium swallow. Will order lab work depending on when patient will start taking his medication. It patient will start on pantoprazole, continues with dysphagia with occasional dyspepsia. Pepcid is not helping. Patient will take pantoprazole at bedtime. He will take Epclusa in the morning. I will see him end of March. Sooner on as needed Lasix. Patient is agreeable to this plan and verbalizes understanding of instructions. He was given the opportunity to ask questions and all questions answered Thank you for allowing me to participate in his care Orders: Orders Hepatitis A Adult Immunization Today Z23 - Encounter for immunization Hepatitis B Adult Immunization Today Z23 - Encounter for immunization Medications: New Engerix-B (PF) (hepatitis B virus vacc.rec(PF)) 1 mL IM ONCE 1 mL 0RF NS Z23 - Encounter for immunization Havrix (PF) (hepatitis A virus vaccine (PF)) 1 mL IM ONCE 1 mL 0RF NS Z23 - Encounter for immunization pantoprazole take one tablet half an hour before breakfast 40 mg PO BEDTIME 30 tabs 2RF K21.9 - Gastro-esophageal reflux disease without esophagitis Discontinued famotidine (Pepcid) Discontinued Reason: Doctor's Order 20 mg PO BID 60 tabs 3RF K29.70 - Gastritis, unspecified, without bleeding Coding Level of Care Code Est Pt Level 3 (69268) Diagnoses Hepatitis C B18.2 Viral hepatitis chronicity: chronic Hepatic coma status: without hepatic coma Dysphagia R13.10 Comment 20 minutes spent with patient and additional 10 minutes spent reviewing his records
[2023-03-12 08:49] VITALS: BP 128/78; PULSE 81; BMI 19.4
== END 2023-03-12 09:13 | disposition home or self-care (01) ==
PROVIDERS: PCP Family Medicine; Visit Provider Nurse Practitioner Family
DX: B18.2 Chronic viral hepatitis C (principal); R13.10 Dysphagia, unspecified; Z23 Encounter for immunization
CPT/HCPCS: 99213

== ENCOUNTER → 2023-03-12 08:44 | Outpatient (BNVA) | payer OTHER, SELFPAY | PROVIDERS: PCP Family Medicine; Visit Provider Nurse Practitioner Family | DX: B18.2 Chronic viral hepatitis C (principal); R13.10 Dysphagia, unspecified | CPT/HCPCS: 90471; 90472; 90632; 90746; 99212 ==

== ENCOUNTER 2023-03-29 08:25 | Outpatient (AMB) | payer OTHER, SELFPAY ==
[2023-03-29 08:26] VITALS: BP 140/80; PULSE 75; RESP 12; TEMP 36.6; O2SAT 99; BMI 19.8
--- NOTE | 2023-03-29 08:26 | MHC.PC.OV ---
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 BP today 140/80. He is on lisinopril-HCTZ 20-12.5mg daily. Elevated creatinine level is resolved. Diabetic eye exam in February was showed no diabetic retinopathy. Pt reports L hand weakness and pain. [facility] Medical History Asthma Intracranial hemorrhage Diabetes mellitus HTN (hypertension) Surgical History History of gallstones History of tonsillectomy History of colonoscopy Family History Father HTN (hypertension) CVD (cardiovascular disease) Diabetes mellitus Mother HTN (hypertension) CVD (cardiovascular disease) Diabetes mellitus Sister No problems noted. Sister No problems noted. Sister Breast cancer Son No problems noted. Social History Household Members: Spouse Housing: Apartment Are you a primary home visit field care manager to a significant other at home: No Do you presently have visiting nurse or other home services: No 75 years or older and lives alone: No Alcohol intake: current Alcohol intake frequency: holidays/special occasions only Patient Tobacco Use Status: Former Tobacco user Tobacco use type: Cigarette Cigarettes Per Day: 10 Years Smoked: 2 e-Cigarette/Vaping Use: Never Used Second Hand Smoke Exposure: No Special florencia needs: No Agree to transfusion: Yes service: No 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al status: unemployed 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al exposures/hazards: No Sexual orientation: Straight/Heterosexual Gender identity: Male Cognitive needs: No Hearing needs: No Vision needs: No Questionnaire Thrive Questionnaire Date Thrive assessed: 01/18/23 RIKI-7 AMB Questionnaire RIKI-7 Date RIKI - 7 assessed: 01/18/23 Source: Developed by Drs. Erik Napoles, Genie Hernandez, Stew Edge and colleagues, with an educational sami from [employer]. Review of Systems Const Denies chills, Denies fatigue, Denies fever(s), Denies headache(s) and Denies weakness ENT Denies dizziness and Denies headache(s) Card Denies chest pain, Denies lightheadedness, Denies dyspnea and Denies other (Palpitations) Resp Denies cough, Denies dyspnea, Denies wheezing and Denies other ( shortness of breath) Musc Denies numbness and Denies tingling Neuro Denies dizziness, Denies headache(s), Denies numbness, Denies tingling, Denies paresthesias and Denies weakness Psych Denies anxiety and Denies depression Endo Denies fatigue Aller/Immun Denies wheezing Physical exam (Primary Care) Vital Signs: Last Vital Signs Temp 97.9 F 03/29/23 08:26 Pulse 75 03/29/23 08:26 Resp 12 03/29/23 08:26 BP 140/80 H 03/29/23 08:26 Pulse Ox 99 03/29/23 08:26 Oxygen Delivery Method Room Air 03/29/23 08:26 BMI result Body Mass Index 19.8 Tobacco/Smoking Status: Tobacco use Status Tobacco use date assessed 02/19/23 03/29/23 08:33 Patient Tobacco Use Status Former Tobacco user 03/29/23 08:33 Tobacco use type Cigarette 03/29/23 08:33 e-Cigarette/Vaping Use Never Used 03/29/23 08:33 Thrive Assessment: Date of Thrive Assessment Date Thrive assessed 01/18/23 03/29/23 08:33 Const General: no acute distress and well developed Nutritional Appearance: well nourished Orientation/consciousness: patient oriented x3 HENMT Head: Yes normocephalic and Yes atraumatic Eyes General: appearance normal, both eyes and all related structures Pupils: Equal, round and reactive pupils present EOM: EOMs intact bilaterally Resp Effort & Inspection: normal respiratory effort Auscultation: clear to auscultation bilaterally Cardio Rate: regular rate Rhythm: regular rhythm Heart sounds: S1 normal heart sound present, S2 normal heart sound present, no gallops, no murmurs and no rubs Neuro Other: Weakness at left hand with decreased sensation as well.. 5/5 Normal strength of left arm. Cranial nerves intact. Normal gait General: patient oriented x3 and gait normal Cranial nerves: Yes Equal, round and reactive pupils present Extrem Other: 2+ radial and ulnar pulses of left hand. Cool fingers. Psych Affect: normal affect Assessment and Plan Assessment & Plan (1) Uncontrolled diabetes mellitus with hyperglycemia: Code(s): E11.65 - Type 2 diabetes mellitus with hyperglycemia Plan: A1c had risen to 8.9% but patient had been off of his medications. Taking medications as prescribed and has an appointment with endocrinology at [facility] in April. Continue medication. We can check his A1c at next visit. (2) Essential hypertension: Code(s): I10 - Essential (primary) hypertension Plan: Blood pressure mildly elevated today but patient has discomfort in left hand Continue current medication (3) Elevated serum creatinine: Code(s): R79.89 - Other specified abnormal findings of blood chemistry Plan: This has resolved Continue good hydration (4) Wound of skin: Code(s): T14.8XXA - Other injury of unspecified body region, initial encounter Plan: Healing well and no longer infected (5) Left hand weakness: Code(s): R29.898 - Other symptoms and signs involving the musculoskeletal system Plan: Patient has left hand weakness with normal ulnar and radial pulses. Normal of gait and cranial nerves are intact. He notes that he fell on to his left arm recently. Referred to hand surgery Suspecting nerve injury to left hand after fall. However, it is possible that he had a central nervous insult that incited his fall. This seems less likely as cranial nerves are intact and he has no other weakness. (6) Left hand pain: Code(s): M79.642 - Pain in left hand Plan: As above (7) Numbness of left hand: Code(s): R20.0 - Anesthesia of skin Plan: As above Orders: Referrals Hand Surgery Referral M79.642 - Pain in left hand, R20.0 - Anesthesia of skin, R29.898 - Other symptoms and signs involving the musculoskeletal system Coding Level of Care Code Est Pt Level 4 (21671) Diagnoses Uncontrolled diabetes mellitus with hyperglycemia E11.65 Essential hypertension I10 Elevated serum creatinine R79.89 Wound of skin T14.8XXA Left hand weakness R29.898 Left hand pain M79.642 Numbness of left hand R20.0
== END 2023-03-29 08:56 | disposition home or self-care (01) ==
PROVIDERS: PCP Family Medicine; Visit Provider Family Medicine
DX: E11.65 Type 2 diabetes mellitus with hyperglycemia (principal); I10 Essential (primary) hypertension; R79.89 Other specified abnormal findings of blood chemistry; T14.8XXA Other injury of unspecified body region, initial encounter; R29.898 Other symptoms and signs involving the musculoskeletal system; M79.642 Pain in left hand; R20.0 Anesthesia of skin
CPT/HCPCS: 99214

== ENCOUNTER 2023-04-01 08:15 | Outpatient (AMB) | payer OTHER, SELFPAY ==
--- NOTE | 2023-04-01 08:38 | A.OFFVIS_ITS ---
Intake Vital Signs 04/01/23 08:39 Height 6 ft 6 in Weight 171 lb BMI 19.8 BP 130/66 Blood Pressure Location Lt brachial Position Sitting Pulse 63 Intake Visit Reasons: 3 week follow up Intake Note: Patient follow up for dysphagia, lab and US results. Patient cc: swallowing problems with solid food, denies any other GI issues. 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 Will work on getting PA for Epclusa. Patient will get barium swallow. Will order lab work depending on when patient will start taking his medication. It patient will start on pantoprazole, continues with dysphagia with occasional dyspepsia. Pepcid is not helping. Patient will take pantoprazole at bedtime. He will take Epclusa in the morning. I will see him end of March. Sooner on as needed Lasix. Patient is agreeable to this plan and verbalizes understanding of instructions. He was given the opportunity to ask questions and all questions answered ? TODAY'S VISIT Patient is here today for follow-up. Patient reports that since the last time I have seen him he continues to have dysphagia. Patient reports dysphagia only with solid food. Patient missed his swallow eval study that was on the . He was not aware that he had 1. Patient started taking obtuse on on March 21. It took a long time for his insurance to approve it. Patient reports that he has been feeling well. He continues to take pantoprazole. Patient was encouraged to stop pantoprazole last time. He is on Pepcid and can continue Pepcid while on Epclusa. Patient denies any other GI concerning symptoms. Patient denies any nausea or vomiting. Denies any melena, hematochezia, unintentional weight loss or ribbon like stools. [facility]LY [facility] Medical History Asthma Intracranial hemorrhage Diabetes mellitus HTN (hypertension) Surgical History History of gallstones History of tonsillectomy History of colonoscopy Family History Father HTN (hypertension) CVD (cardiovascular disease) Diabetes mellitus Mother HTN (hypertension) CVD (cardiovascular disease) Diabetes mellitus Sister No problems noted. Sister No problems noted. Sister Breast cancer Son No problems noted. Social History Household Members: Spouse Housing: Apartment Are you a primary child care center assistant director to a significant other at home: No Do you presently have visiting nurse or other home services: No Alcohol intake: current Alcohol intake frequency: holidays/special occasions only Patient Tobacco Use Status: Former Tobacco user Tobacco use type: Cigarette Cigarettes Per Day: 10 Years Smoked: 2 e-Cigarette/Vaping Use: Never Used Second Hand Smoke Exposure: No Special florencia needs: No Agree to transfusion: Yes service: No 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al status: unemployed 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al exposures/hazards: No Sexual orientation: Straight/Heterosexual Gender identity: Male Cognitive needs: No Hearing needs: No Vision needs: No Review of Systems Const Denies weight gain and Denies weight loss ENT Reports no additional complaints, Reports dysphagia and Denies odynophagia Card Reports no additional complaints Resp Reports no additional complaints GI Denies abdominal pain, Denies belching, Denies melena, Denies bloating, Denies change in bowel habits, Reports dysphagia, Denies excessive flatus, Denies dyspepsia, Denies heartburn, Denies diarrhea, Denies loose stools, Denies nausea, Denies odynophagia and Denies vomiting Reports no additional complaints Musc Reports no additional complaints Neuro Reports no additional complaints Psych Reports no additional complaints Endo Reports no additional complaints Physical Exam Vital Signs: Last Vital Signs Pulse 63 04/01/23 08:39 BP 130/66 04/01/23 08:39 BMI result Body Mass Index 19.8 Const General: healthy appearing, no acute distress and well developed Nutritional Appearance: well nourished Orientation/consciousness: patient oriented x3 HEENT Head: Yes normal to inspection, Yes normocephalic and Yes atraumatic Face and sinus: Yes normal facial exam Mouth: Normal oral and palatal mucosa present Throat: Yes posterior oropharynx normal, Yes tonsils normal and Yes uvula midline Eyes General: appearance normal, both eyes and all related structures Neck Neck: Yes normal visual inspection, Yes full ROM and Yes trachea midline Thyroid: Thyroid normal Resp Effort & Inspection: normal respiratory effort, able to speak in complete sentences, no tracheal deviation and symmetric chest movement Auscultation: clear to auscultation bilaterally Cardio Rate: regular rate Heart sounds: S1 normal heart sound present and S2 normal heart sound present GI Inspection: Yes normal to inspection and No distended Palpation (GI): Soft to palpation, not firm, nontender and No hepatosplenomegaly present Auscultation: normal bowel sounds General: Yes no CVA tenderness Back/Spine/Pelvis Back: no CVA tenderness Skin General skin exam: elasticity normal, turgor normal and dry skin Neuro General: patient oriented x3 Psych Appearance: grossly normal Mental Status: mental status grossly normal Speech and movement: Normal speech and movement present Results Reviewed Results Reviewed: LIVER ULTRASOUND WITH ELASTOGRAPHY FINDINGS: PANCREAS: Normal. The visualized pancreatic head and body are normal in appearance. The remainder of the pancreas is obscured from visualization by the overlying bowel gas. ABDOMINAL AORTA: The proximal, middle, and distal aortic segments are normal in caliber. INFERIOR VENA CAVA: Visualized portions are normal. LIVER: Normal. The liver demonstrates normal size, contour and echogenicity. No focal lesion or intrahepatic biliary duct dilatation. The right lobe measures 18.3 cm in length. The left lobe measures 12.1 cm in length. Portal flow is towards the liver (hepatopetal). Shear wave liver elastography median stiffness is 1.65 m/s (reference: normal median stiffness is 1.3 m/s or less). IQR/median stiffness to assess sampling precision is 0.10 (reference: good quality data set is IQR/median stiffness of 0.15 or less). GALLBLADDER: Within the gallbladder fundus, 5 mm and 2 mm nodule without polyps are noted. The gallbladder is physiologically distended without evidence of stones, sludge, polyps, wall thickening or pericholecystic fluid. COMMON BILE DUCT: Normal in caliber measuring 0.5 cm in diameter. RIGHT KIDNEY: At the interpolar aspect, a 6 mm benign, simple cyst is seen, which require no imaging follow-up. No hydronephrosis. No renal calculi or focal parenchymal solid lesions. The kidney measures 12.0 cm in maximum dimension. LEFT KIDNEY: At the lower pole, a 1.8 cm benign, simple cyst is seen, which requires no imaging follow-up. No hydronephrosis. No renal calculi or focal parenchymal solid lesions. The kidney measures cm in maximum dimension. SPLEEN: Anteriorly, a 7 x 6 x 6 mm hyperechoic, circumscribed mass is seen, with ultrasound features characteristic for a benign hemangioma.. The spleen measures 12.7 cm in maximum dimension. FREE FLUID: None. US/US abdomen comp w elastography IMPRESSION: 1. There is generalized increase in hepatic echotexture, consistent with fatty infiltration or hepatocellular disease. Please correlate clinically. No focal hepatic mass or intrahepatic biliary dilatation is seen. 2. There is hepatomegaly. 3. Liver elastography: In the absence of other known clinical signs, measurements rule out compensated advanced chronic liver disease. If there are known clinical signs, further testing may be needed for confirmation. 4. 5 mm and 2 mm nonmobile gallbladder polyps are newly seen. As a precaution, a repeat abdominal ultrasound examination is recommended in 6 months to ensure stability. 5. A 7 mm hyperechoic, circumscribed mass is seen within the spleen, likely a benign hemangioma. Assessment & Plan Assessment & Plan (1) Hepatitis C: Code(s): B19.20 - Unspecified viral hepatitis C without hepatic coma Qualifiers: Viral hepatitis chronicity: chronic Hepatic coma status: without hepatic coma Qualified Code(s): B18.2 - Chronic viral hepatitis C Plan: Started treatment with Epclusa on March 21. Patient will repeat viral load on April 18. Patient reports that he has been feeling well no side effects. Continue treatment (2) Dysphagia: Code(s): R13.10 - Dysphagia, unspecified Qualifiers: Dysphagia type: pharyngoesophageal phase Qualified Code(s): R13.14 - Dysphagia, pharyngoesophageal phase Plan: Patient reports dysphagia with solid food. Patient will go for barium swallow. Continue Pepcid. I will see patient in 2 months, sooner on as needed basis. Patient is agreeable to this plan and verbalizes understanding of instructions. He was given the opportunity to ask questions all questions answered. Thank you for allowing me to participate in his care Medications: Discontinued pantoprazole take one tablet half an hour before breakfast Discontinued Reason: Doctor's Order 40 mg PO BEDTIME 30 tabs 2RF K21.9 - Gastro-esophageal reflux disease without esophagitis Coding Level of Care Code Est Pt Level 3 (23436) Diagnoses Chronic hepatitis C without hepatic coma B18.2 Viral hepatitis chronicity: chronic Hepatic coma status: without hepatic coma Pharyngoesophageal dysphagia R13.14 Dysphagia type: pharyngoesophageal phase Time Spent (min) 25 Comment 15 minutes spent with patient and additional 10 minutes spent reviewing his records
[2023-04-01 08:39] VITALS: BP 130/66; PULSE 63; BMI 19.8
== END 2023-04-01 08:57 | disposition home or self-care (01) ==
PROVIDERS: PCP Family Medicine; Visit Provider Nurse Practitioner Family
DX: B18.2 Chronic viral hepatitis C (principal); R13.14 Dysphagia, pharyngoesophageal phase
CPT/HCPCS: 99213

== ENCOUNTER → 2023-04-01 08:15 | Outpatient (BNVA) | payer OTHER, SELFPAY | PROVIDERS: PCP Family Medicine; Visit Provider Nurse Practitioner Family | DX: R13.14 Dysphagia, pharyngoesophageal phase (principal); B18.2 Chronic viral hepatitis C | CPT/HCPCS: 99212 ==

== ENCOUNTER 2023-04-04 09:07 | Emergency (ER) | payer OTHER, SELFPAY ==
--- NOTE | ~2023-04-04 | XR_ITS ---
EXAMINATION: XR WRIST, LEFT XR HAND, LEFT CLINICAL INFORMATION: Pain after fall COMPARISON: None available. TECHNIQUE: PA, lateral, and oblique views of the left wrist and PA, lateral, and oblique views of the left hand FINDINGS: LEFT WRIST: The bones and soft tissues are normal. No fracture. Alignment is anatomic. Joint spaces are maintained. No erosions or soft tissue calcifications. LEFT HAND: There is deformity with shortening of the tip of the distal phalanx of the index finger which appears chronic. There is some minimal degenerative change at the DIP joints. Some minimal vascular calcification probably present lateral to the end of the navicular. The bones and soft tissues are otherwise unremarkable. No fracture. Alignment is anatomic. Joint spaces are maintained. No erosions or soft tissue calcifications. XR/XR hand wrist LT IMPRESSION: No evidence of an acute traumatic injury. Chronic changes as described above.
[2023-04-04 09:09] VITALS: BP 170/86; PULSE 62; RESP 18; TEMP 36.4; O2SAT 100; BMI 19.9
--- NOTE | 2023-04-04 10:18 | ED.GENADULT ---
HPI - General Adult General Chief complaint: Extremity Problem Stated complaint: left hand injury/ numbness Time Seen by Provider: 04/04/23 10:05 Source: patient Mode of arrival: ambulatory Limitations: no limitations History of Present Illness HPI narrative: 62 y o male presenting for evaluation of L hand and wrist pain s/p FOOSH last week. States he had a mechanical fall and fell backwards onto his L hand, has been c/o pain ever since. Denies HS and thinners from fall, no other injuries. Since the fall, has also been reporting constant numbness and tingling in the left hand. Denies overlying skin changes, edema. Denies chest pain, shortness of breath, abdominal pain, dizziness. Related Data Home Medications Medication Instructions Recorded Confirmed famotidine 20 mg tablet 20 mg PO BID 04/01/23 Previous Rx's Medication Instructions Recorded fluticasone propionate 50 1 spray intranasal Q12H 30 days 09/26/20 mcg/actuation nasal #16 grams spray,suspension (Flonase Allergy Relief) blood pressure monitor #1 ea 08/09/21 pen needle, diabetic 32 gauge x #100 ea 07/27/2232 (BD Vida 2nd Gen Pen Needle) cetirizine 10 mg tablet (All Day 10 mg PO DAILY allergy symptoms 90 01/21/23 Allergy (cetirizine)) days #90 tabs gabapentin 300 mg capsule 300 mg PO BID 30 days #60 caps 01/21/23 trazodone 50 mg tablet 50 mg PO BEDTIME 30 days #30 tabs 01/21/23 hydrocortisone 2.5 % topical cream 1 appl CA BID-QID PRN hemorrhoids 02/04/23 with perineal applicator #30 grams (Proctosol HC) insulin glargine 100 unit/mL (3 50 unit (0.5 mL) subcut QPM 90 02/19/23 mL) subcutaneous pen ( #45 mL KwikPen U-100 Insulin) lisinopril 20 1 tab PO DAILY 90 days #90 tabs 02/19/23 mg-hydrochlorothiazide 12.5 mg tablet metformin 500 mg tablet 500 mg PO BID 90 days #180 tabs 02/19/23 sofosbuvir 400 mg-velpatasvir 100 1 tab PO DAILY 12 weeks #84 tabs 02/26/23 mg tablet (Epclusa) blood sugar diagnostic (FreeStyle #200 ea 03/07/23 Lite Strips) blood-glucose meter (FreeStyle #1 ea 03/07/23 Lite Meter kit) lancets 28 gauge (FreeStyle #200 ea 03/07/23 Lancets) flash glucose scanning reader #1 ea 04/03/23 (FreeStyle Law 2 [place]) flash glucose sensor (FreeStyle #1 ea 04/03/23 Law 2 Sensor kit) prednisone 20 mg tablet 20 mg PO DAILY 5 days #5 tabs 04/04/23 Allergies Allergy/AdvReac Type Severity Reaction Status Date / Time aspirin [ASPIRIN] Allergy Unknown ITCH Verified 04/01/23 08:36 Sinus Allergy Unknown unknown Uncoded 03/12/23 08:48 Review of Systems Review of Systems: Constitutional : No Weight loss, No Fever, No Chills, No Fatigue, No Malaise Cardiovascular : No Chest Pain, No SOB, No Dyspnea on Exertion, No Orthopnea, No Edema, No Palpitations Respiratory : No Cough, No Sputum, No Wheezing Gastrointestinal : No Nausea, No Vomiting, No Diarrhea, No Constipation, No abdominal Pain, No Hematochezia, No Melena Genitourinary : No Dysuria, No Urinary Frequency, No Hematuria Musculoskeletal : +joint pain, No Myalgias, No Joint Swelling Skin : No Skin Lesions, No rash Neuro : No Weakness, + Numbness, No Dizziness, No Headache Psych : No Anxiety/Panic, No Depression All other systems reviewed and are negative Yes all other systems are reviewed and are negative [facility] Past Medical History Attestation statement: The following information was validated with the patient. Source: old records reviewed and nursing notes reviewed Medical History Asthma Intracranial hemorrhage Diabetes mellitus HTN (hypertension) Surgical History History of gallstones History of tonsillectomy History of colonoscopy Family History Family History Father HTN (hypertension) CVD (cardiovascular disease) Diabetes mellitus Mother HTN (hypertension) CVD (cardiovascular disease) Diabetes mellitus Sister No problems noted. Sister No problems noted. Sister Breast cancer Son No problems noted. Social History Social History Household Members: Spouse Housing: Apartment Are you a primary care transition mgr to a significant other at home: No Do you presently have visiting nurse or other home services: No Alcohol intake: current Alcohol intake frequency: holidays/special occasions only Patient Tobacco Use Status: Former Tobacco user Tobacco use type: Cigarette Cigarettes Per Day: 10 Years Smoked: 2 e-Cigarette/Vaping Use: Never Used Second Hand Smoke Exposure: No Special florencia needs: No Agree to transfusion: Yes Advance Directives: No Advance Directives Information Provided: No service: No 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al status: unemployed 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al exposures/hazards: No Sexual orientation: Straight/Heterosexual Gender identity: Male Cognitive needs: No Hearing needs: No Vision needs: No Physical Exam ED Vital Signs: Vital Signs - 24 hr 04/04/23 09:09 Temperature 97.5 F Pulse Rate 62 Respiratory Rate 18 Blood Pressure 170/86 H Pulse Oximetry 100 Oxygen Delivery Method Room Air BMI result Body Mass Index 19.9 VSS Appearance: Alert.? Oriented X3.? No acute distress.? Head: Normocephalic, atraumatic, no step-offs or deformities Eyes: Pupils equal, round and reactive to light.? Neck: Normal inspection.? Neck supple.? CVS: Normal heart rate and rhythm.? Pulses normal.? Respiratory: No respiratory distress.? Breath sounds normal.? Abdomen: Soft and nontender.? Skin: Skin warm and dry.? Normal skin color.? Normal skin turgor.? Extremities: No lower extremity edema.? No calf ttp. 5/5 strength to bilateral lower extremities and RUE. LUE with full ROM of shoulder and elbow including pronation and supination, flexion and extension. 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 Wrist ROM limited secondary to pain. 2+ radial and ulnar pulses b/l. Gross sensation in tact, cap refill <2s b/l. No overlying skin changes or erythema, no edema, no warmth. +TTP along the ulnar aspect of the wrist and hand including the 4th and 5th metacarpals. Neuro: Oriented X 3.? No motor deficit.? No sensory deficit. CN 2-12 intact Course Reevaluation(s) Reevaluation #1: X-ray of left hand no acute findings. Will have him follow-up with orthopedics. Chronic changes noted. Will discharge him home with prednisone. Educated patient on diagnosis and treatment plan, answered all question, patient verbalizes understanding. At this time patient will be discharged home, advised to return with new or worsening symptoms. Educated on worrisome signs and symptoms and when to return. At this time I feel comfortable discharge home. Time: 11:43 Medical Decision Making Medical Decision Making [facility] Narrative: 62 y o male presenting for evaluation of L hand and wrist pain s/p FOOSH last week. PE significant for LUE with full ROM of shoulder and elbow including pronation and supination, flexion and extension. 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 Wrist ROM limited secondary to pain. 2+ radial and ulnar pulses b/l. Gross sensation in tact, cap refill <2s b/l. No overlying skin changes or erythema, no edema, no warmth. +TTP along the ulnar aspect of the wrist and hand including the 4th and 5th metacarpals. Likely sprain/strain vs dislocation vs fracture vs hematoma. I am not concerned for compartment syndrome, compartments are soft, pulses are 2+ and symmetric. No acute threat to limb, no neurovascular compromise. No signs of DVT or arterial occlusion Plan -- XR hand and wrist Differential Diagnosis Differential Diagnoses: The differential diagnosis associated with the presentation includes Likely sprain/strain vs dislocation vs fracture vs hematoma. I am not concerned for compartment syndrome, compartments are soft, pulses are 2+ and symmetric. No acute threat to limb, no neurovascular compromise. No signs of DVT or arterial occlusion Admission/Observation Consideration of admission/observation: Escalation of care including admission/observation considered No indication Lab Data [facility] Lab Attestation statement: I reviewed the patient's lab results. Independent Interpretation I performed an independent interpretation of an: Plain X-Ray Radiology Impression Discussion of test interpretation with radiology: I have reviewed the radiologist's reading. Critical Care Time Critical Care Time Critical Care Time: No Discharge Plan Discharge Clinical Impression: Fall, Left wrist pain Patient Disposition: Home, Self-Care Instructions: Wrist Injury (ED), Fall Prevention (ED) Additional Instructions: Take your medications as prescribed. If you were prescribed antibiotics today, it is important that you take your medication to their entirety, do not skip any doses, do not finish them early. Follow-up with your primary care provider this week. Return to the emergency department with new or worsening symptoms. Such as fevers, chills, chest pain, shortness of breath, nausea, vomiting, dizziness, headache, vision changes, lethargy In case of emergency call 911 Prescriptions: New prednisone 20 mg tablet 20 mg PO DAILY 5 Days Qty: 5 0RF No Action (DME) pen needle, diabetic [BD Vida 2nd Gen Pen Needle] 32 gauge x 5/32 needle See Rx Instructions .ROUTE .MEDSUPPLY Qty: 100 0RF Rx Instructions: DX: E11.9, daily As directed to treat blood sugar, 90 day supply cetirizine [All Day Allergy (cetirizine)] 10 mg tablet 10 mg PO DAILY 90 Days Qty: 90 3RF trazodone 50 mg tablet 50 mg PO BEDTIME 30 Days Qty: 30 3RF gabapentin 300 mg capsule 300 mg PO BID 30 Days Qty: 60 1RF (DME) blood-glucose meter [FreeStyle Lite Meter] Kit See Rx Instructions .ROUTE .MEDSUPPLY Qty: 1 0RF Rx Instructions: DX: E11.9, test blood sugar 2 times a day, duration 999 days (DME) FreeStyle Lite Strips Strip See Rx Instructions .ROUTE .MEDSUPPLY Qty: 200 4RF Rx Instructions: DX: E11.9, test blood sugar 2 times a day, 90 days (DME) lancets [FreeStyle Lancets] 28 gauge misc See Rx Instructions .ROUTE .MEDSUPPLY Qty: 200 4RF Rx Instructions: As directed (DME) FreeStyle Law 2 [place] Misc See Rx Instructions .Route Qty: 1 0RF Rx Instructions: As directed (DME) FreeStyle Law 2 Sensor Kit See Rx Instructions .Route Qty: 1 2RF Rx Instructions: 28 day supply fluticasone propionate [Flonase Allergy Relief] 50 mcg/actuation spray,suspension 1 spray intranasal Q12H 30 Days Qty: 16 2RF Rx Instructions: administer into each nostril (DME) blood pressure monitor Kit See Rx Instructions .ROUTE .MEDSUPPLY Qty: 1 0RF Rx Instructions: Automatic, Digital. Dx: I10. Daily As directed, 999 days/lifetime metformin 500 mg tablet 500 mg PO BID 90 Days Qty: 180 3RF insulin glargine [Basaglar KwikPen U-100 Insulin] 100 unit/mL (3 mL) insulin pen 50 unit subcut QPM 90 Days Qty: 45 4RF lisinopril-hydrochlorothiazide 20-12.5 mg tablet 1 tab PO DAILY 90 Days Qty: 90 3RF hydrocortisone [Proctosol HC] 2.5 % cream with perineal applicator 1 appl CA BID-QID PRN (Reason: hemorrhoids) Qty: 30 2RF sofosbuvir-velpatasvir [Epclusa] 400-100 mg tablet 1 tab PO DAILY 84 Days Qty: 84 0RF famotidine 20 mg tablet 20 mg PO BID Referrals: [facility] [place] [facility] [Provider Group] - 2 days Mic Cordero MD [Primary Care Provider] - 2 days Stand Alone Forms: Work/School Release
== END 2023-04-04 11:48 | disposition home or self-care (01) ==
PROVIDERS: Emergency Provider Emergency Medicine; PCP Family Medicine
DX: M79.642 Pain in left hand (principal); Z91.81 History of falling
CPT/HCPCS: 73110; 73130; 99283

== ENCOUNTER 2023-05-04 07:45 | Outpatient (REF) | payer OTHER, SELFPAY ==
[2023-05-04 09:24] LABS: Alanine Aminotransferase 19 U/L (0-40); Albumin Level 3.9 g/dL (3.5-5.0); Alkaline Phosphatase 63 U/L (39-117); Aspartate Amino Transferase 21 U/L (5-37); Bilirubin Direct 0.3 mg/dL (0.0-0.5); Bilirubin Total 0.8 mg/dL (0.0-1.0); Total Protein 7.7 g/dL (6.5-8.0)
[2023-05-07 15:48] LABS: HCV Log PCR <1.18 NOT DETECTED Log IU/mL (NOT DETECTED); HepC Viral Load <15 NOT DETECTED IU/mL (NOT DETECTED)
== END 2023-05-04 07:46 | disposition home or self-care (01) ==
LOC: HO.LAB 07:45
PROVIDERS: PCP Family Medicine; Visit Provider Nurse Practitioner Family
DX: R10.9 Unspecified abdominal pain (principal); Z86.19 Personal history of other infectious and parasitic diseases
CPT/HCPCS: 36415; 80076; 87522

== ENCOUNTER 2023-05-28 08:04 | Outpatient (AMB) | payer OTHER, SELFPAY ==
--- NOTE | 2023-05-28 08:15 | A.OFFVIS_ITS ---
Intake Vital Signs 05/28/23 08:21 Height 6 ft 6 in Weight 176 lb 5.917 oz BMI 20.4 BP 106/73 Blood Pressure Location Lt brachial Position Sitting Pulse 75 Intake Visit Reasons: 2 month follow up Intake Note: Arvind presents in office as a 2 month follow up. CC: HE states that he is not having any concerns at this time. Allergies aspirin [ASPIRIN] Allergy (Unknown, Verified 06/06/23 09:42) ITCH Sinus Allergy (Unknown, Uncoded 06/06/23 09:42) unknown HPI 2 month follow up HPI Details LAST VISIT: Hepatitis C Started treatment with Epclusa on March 21. Patient will repeat viral load on April 18. Patient reports that he has been feeling well no side effects. Continue treatment Dysphagia Patient reports dysphagia with solid food. Patient will go for barium swallow. Continue Pepcid. I will see patient in 2 months, sooner on as needed basis. Patient is agreeable to this plan and verbalizes understanding of instructions. He was given the opportunity to ask questions all questions answered. ? Thank you for allowing me to participate in his care Plan Medications Discontinued pantoprazole take one tablet half an hour before breakfast Discontinued Reason: Doctor's Order 40 mg PO BEDTIME 30 tabs 2RF K21.9 TODAY'S VISIT Patient is here today for follow-up. Patient states that he was unable to get his medication from the pharmacy he had about few days total may be of 6 days when he was not getting his Epclusa , however since he received that he has been taking every day and has not missed a dose. Patient reports that he has been feeling well. Denies any GI concerning symptoms. Patient has good appetite. Actually gain about 6 lb since last visit. Patient denies any dyspepsia, dysphagia or odynophagia. Patient reports occasional postprandial abdominal bloating and loose stools. Will send him to repeat viral load again. Last one was not detected REPLACED BY [facility] Medical History (Updated 06/06/23 @ 12:09 by Leigh Marte MD) History of stroke Degenerative joint disease of hand Carpal tunnel syndrome on both sides Asthma Intracranial hemorrhage Diabetes mellitus HTN (hypertension) Surgical History History of gallstones History of tonsillectomy History of colonoscopy Family History Father HTN (hypertension) CVD (cardiovascular disease) Diabetes mellitus Mother HTN (hypertension) CVD (cardiovascular disease) Diabetes mellitus Sister No problems noted. Sister No problems noted. Sister Breast cancer Son No problems noted. Social History (Updated 06/06/23 @ 09:44 by PATRICIA Crooks) Household Members: Spouse Housing: Apartment Are you a primary career coach to a significant other at home: No Do you presently have visiting nurse or other home services: No Alcohol intake: current Alcohol intake frequency: holidays/special occasions only Patient Tobacco Use Status: Former Tobacco user Tobacco use type: Cigarette Cigarettes Per Day: 10 Years Smoked: 2 e-Cigarette/Vaping Use: Never Used Second Hand Smoke Exposure: No Special florencia needs: No Agree to transfusion: Yes service: No 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al status: unemployed 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al exposures/hazards: No Sexual orientation: Straight/Heterosexual Gender identity: Male Cognitive needs: No Hearing needs: No Vision needs: No Review of Systems Const Denies weight gain and Denies weight loss ENT Reports no additional complaints, Denies dysphagia and Denies odynophagia Card Reports no additional complaints Resp Reports no additional complaints GI Denies abdominal pain, Denies belching, Denies melena, Denies bloating, Denies change in bowel habits, Denies dysphagia, Denies excessive flatus, Denies dyspepsia, Denies heartburn, Denies diarrhea, Denies loose stools, Denies nausea, Denies odynophagia and Denies vomiting Reports no additional complaints Musc Reports no additional complaints Neuro Reports no additional complaints Psych Reports no additional complaints Endo Reports no additional complaints Physical Exam Vital Signs: Last Vital Signs Pulse 75 05/28/23 08:21 BP 106/73 05/28/23 08:21 BMI result Body Mass Index 20.4 Const General: healthy appearing, no acute distress and well developed Nutritional Appearance: well nourished Orientation/consciousness: patient oriented x3 HEENT Head: Yes normal to inspection, Yes normocephalic and Yes atraumatic Face and sinus: Yes normal facial exam Mouth: Normal oral and palatal mucosa present Throat: Yes posterior oropharynx normal, Yes tonsils normal and Yes uvula midline Eyes General: appearance normal, both eyes and all related structures Neck Neck: Yes normal visual inspection, Yes full ROM and Yes trachea midline Thyroid: Thyroid normal Resp Effort & Inspection: normal respiratory effort, able to speak in complete sentences, no tracheal deviation and symmetric chest movement Auscultation: clear to auscultation bilaterally Cardio Rate: regular rate GI Inspection: Yes normal to inspection and No distended Palpation (GI): Soft to palpation, not firm, nontender and No hepatosplenomegaly present Auscultation: normal bowel sounds General: Yes no CVA tenderness Back/Spine/Pelvis Back: no CVA tenderness Skin General skin exam: elasticity normal, turgor normal and dry skin Neuro General: patient oriented x3 Psych Appearance: grossly normal Mental Status: mental status grossly normal Affect: normal affect Assessment & Plan Assessment & Plan (1) Hepatitis C: Code(s): B19.20 - Unspecified viral hepatitis C without hepatic coma Qualifiers: Hepatic coma status: without hepatic coma Viral hepatitis chronicity: chronic Qualified Code(s): B18.2 - Chronic viral hepatitis C Plan Continue treatment with good loose a, patient denies any GI concerning symptoms. Patient was encouraged to call his pharmacy way ahead for medications to make sure that he does not misses any more doses. Patient can take Citrucel to help him bulk his stools, occasional loose stools depending on what he eats. I will see patient in 1 month, sooner on as needed basis. Patient is agreeable to this plan and verbalizes understanding of instructions. He was given the opportunity to ask questions and all questions answered. Thank you for allowing me to participate in his care Orders: Orders Liver Panel 05/28/23 B19.20 - Unspecified viral hepatitis C without hepatic coma Hepatitis C Viral Load 05/28/23 Z86.19 - Personal history of other infectious and parasitic diseases Medications: New methylcellulose (laxative) (Citrucel) take it with full glass of water 500 mg PO DAILY 30 tabs 2RF K59.00 - Consti pation, unspecified Coding Level of Care Code Est Pt Level 3 (03041) Diagnoses Chronic hepatitis C without hepatic coma B18.2 Hepatic coma status: without hepatic coma Viral hepatitis chronicity: chronic Time Spent (min) 25 Comment 15 minutes spent with patient and additional 10 minutes spent reviewing her records
[2023-05-28 08:21] VITALS: BP 106/73; PULSE 75; BMI 20.4
== END 2023-05-28 08:36 | disposition home or self-care (01) ==
PROVIDERS: PCP Family Medicine; Visit Provider Nurse Practitioner Family
DX: B18.2 Chronic viral hepatitis C (principal)
CPT/HCPCS: 99213

== ENCOUNTER → 2023-05-28 08:04 | Outpatient (BNVA) | payer OTHER, SELFPAY | PROVIDERS: PCP Family Medicine; Visit Provider Nurse Practitioner Family | DX: B18.2 Chronic viral hepatitis C (principal) | CPT/HCPCS: 99212 ==

== ENCOUNTER 2023-06-06 09:14 | Outpatient (AMB) | payer OTHER, SELFPAY ==
[2023-06-06 09:39] VITALS: BMI 20.3
--- NOTE | 2023-06-06 09:39 | MHC.OFFVIS ---
Intake Vital Signs 06/06/23 09:39 Height 6 ft 6 in Weight 176 lb BMI 20.3 Intake Visit Reasons: ccie- Pain in left hand Intake Note: Arvind 62 yr old male who is right hand dominant presents today for his left hand pain. States he is having numbness in ad tingling in his hands. He recalls he fell on March injuring his hand. Reports he is not able to fully extend his finger and has sever pain in his pinky and ring finger Denies O.T or injections. No EMG done. Patient is diabetic and his last A1C done in April was a 5.0 Allergies aspirin [ASPIRIN] Allergy (Unknown, Verified 06/06/23 09:42) ITCH Sinus Allergy (Unknown, Uncoded 06/06/23 09:42) unknown Medication List - Last Reconciled 06/06/23 by Leigh Marte MD blood pressure monitor Automatic, Digital. Dx: I10. Daily As directed, 999 days/lifetime blood sugar diagnostic (FreeStyle Lite Strips) DX: E11.9, test blood sugar 2 times a day, 90 days blood-glucose meter (FreeStyle Lite Meter kit) DX: E11.9, test blood sugar 2 times a day, duration 999 days cetirizine (All Day Allergy (cetirizine)) 10 mg PO DAILY 90 days famotidine 20 mg PO BID flash glucose scanning reader (FreeStyle Law 2 Finley) As directed flash glucose sensor (FreeStyle Law 2 Sensor kit) 28 day supply fluticasone propionate 50 mcg/actuation (Flonase Allergy Relief) 1 spray intranasal Q12H 30 days gabapentin 300 mg PO BID 30 days hydrocortisone 2.5% (Proctosol HC) 1 appl [place] BID-QID PRN insulin glargine (Basaglar KwikPen U-100 Insulin) 50 units (0.5 mL) subcut QPM 90 days lancets (FreeStyle Lancets) As directed lisinopril-hydrochlorothiazide 20-12.5 mg 1 tab PO DAILY 90 days metformin 500 mg PO BID 90 days methylcellulose (laxative) (Citrucel) 500 mg PO DAILY pen needle, diabetic (BD Vida 2nd Gen Pen Needle) DX: E11.9, daily As directed to treat blood sugar, 90 day supply trazodone 50 mg PO BEDTIME 30 days HPI HPI Comments History of Present Illness Details He thinks he had a light stroke and fell on left side. This happened after he saw his PCP in March. During that visit, he was already having left hand 4th and 5th digits numbness and weakness, per Dr. Cordero's note on 03/29. He says that numbness has been going on for a few years, even before 1st stroke 2 years ago. Also notes numbness on right 4th and 5th digits since last summer. History of stroke 2 years ago, left hemiparesis, still with residuals. Elbow fracture right side, few years ago. Still locks up at times. DM was poorly controlled for a while but now HbA1c 5.6. Denies bladder/bowel incontinence. But sometimes diarrhea and constipation. Can't walk for prolonged time, can't do ladders. Admits feet numbness and cold sensation. History of neuropathy? On gabapentin. Back chronic. Denies neck pain. [facility] Medical History (Updated 06/06/23 @ 12:09 by Leigh Marte MD) History of stroke Degenerative joint disease of hand Carpal tunnel syndrome on both sides Asthma Intracranial hemorrhage Diabetes mellitus HTN (hypertension) Surgical History History of gallstones History of tonsillectomy History of colonoscopy Family History Father HTN (hypertension) CVD (cardiovascular disease) Diabetes mellitus Mother HTN (hypertension) CVD (cardiovascular disease) Diabetes mellitus Sister No problems noted. Sister No problems noted. Sister Breast cancer Son No problems noted. Social History (Updated 06/06/23 @ 09:44 by Katie Jordan [facility]) Household Members: Spouse Housing: Apartment Are you a primary care clinician to a significant other at home: No Do you presently have visiting nurse or other home services: No 75 years or older and lives alone: No Alcohol intake: current Alcohol intake frequency: holidays/special occasions only Patient Tobacco Use Status: Former Tobacco user Tobacco use type: Cigarette Cigarettes Per Day: 10 Years Smoked: 2 e-Cigarette/Vaping Use: Never Used Second Hand Smoke Exposure: No Special florencia needs: No Agree to transfusion: Yes service: No 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al status: unemployed 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 MSK: Inspection reveals appropriate head and neck positioning. No pain with palpation over the neck musculature. Cervical ROM was full. Spurling's sign negative. No intrinsic hand weakness noted. Left FDI 5 atrophy noted. Oliver test negative. Carpal compression test positive bilateral. Tinel sign positive left elbow. Strength is 5/5 in all muscle groups tested. No increased tone noted. Neurological: Neurologic examination of the upper and lower extremities was nonfocal with intact sensation, muscle stretch reflexes and without focal motor deficits . No facial asymmetry. Tongue midline. Negative pronator drift. Strength 5/5 upper lower extremities bilateral. Bernal?s negative bilaterally. Babinski was down going bilaterally. Clonus was negative. Gait is non-antalgic without loss of balance. Results Reviewed Results Reviewed: I independently reviewed the results of the following: Degenerative changes on IP joints seen on x-ray. I reviewed records from the following: PCP Assessment & Plan Assessment & Plan (1) Carpal tunnel syndrome on both sides: Code(s): G56.03 - Carpal tunnel syndrome, bilateral upper limbs (2) Ulnar neuropathy at elbow: Code(s): G56.20 - Lesion of ulnar nerve, unspecified upper limb Qualifiers: Laterality: left Qualified Code(s): G56.22 - Lesion of ulnar nerve, left upper limb (3) Degenerative joint disease of hand: Code(s): M19.049 - Primary osteoarthritis, unspecified hand Qualifiers: Osteoarthritis type: primary Laterality: bilateral Qualified Code(s): M19.041 - Primary osteoarthritis, right hand; M19.042 - Primary osteoarthritis, left hand (4) History of stroke: Code(s): Z86.73 - Personal history of transient ischemic attack (TIA), and cerebral infarction without residual deficits Plan Symptoms and exam suggest bilateral Carpal Tunnel Syndrome and left ulnar neuropathy. We will schedule him for EMG. Wear wrist splints at night, provided. Degenerative changes on IP joints seen on x-ray. I do not see any focal or residual weakness from history of stroke. We did talk about secondary stroke prevention and highly encouraged continued control of diabetes and HTN. Patient to follow-up with primary care. Assessment and plan discussed with patient, and patient was agreeable. All questions were answered thoroughly. Leigh Marte MD, JOSIAH Board Certified, [place] [employer] and Rehabilitation (ABPMR) Board Certified, [place] Board [employer] Electrodiagnostic Medicine (ABEM) Orders: Orders NE electromyogram (EMG) Today G56.03 - Carpal tunnel syndrome, bilateral upper limbs, G56.20 - Lesion of ulnar nerve, unspecified upper limb NE nerve conduction velocity Today G56.03 - Carpal tunnel syndrome, bilateral upper limbs, G56.20 - Lesion of ulnar nerve, unspecified upper limb Coding Level of Care Code New Pt Level 4 (25552) Diagnoses Carpal tunnel syndrome on both sides G56.03 Ulnar neuropathy at elbow of left upper extremity G56.22 Laterality: left Primary osteoarthritis of both hands M19.041; M19.042 Osteoarthritis type: primary Laterality: bilateral History of stroke Z86.73
== END 2023-06-06 10:12 | disposition home or self-care (01) ==
PROVIDERS: PCP Family Medicine; Visit Provider Physical Medicine & Rehabilitation
DX: G56.03 Carpal tunnel syndrome, bilateral upper limbs (principal); G56.22 Lesion of ulnar nerve, left upper limb; M19.041 Primary osteoarthritis, right hand; M19.042 Primary osteoarthritis, left hand; Z86.73 Personal history of transient ischemic attack (TIA), and cerebral infarction without residual deficits
CPT/HCPCS: 99204

== ENCOUNTER → 2023-06-06 09:14 | Outpatient (BNVA) | payer OTHER, SELFPAY | PROVIDERS: PCP Family Medicine; Visit Provider Physical Medicine & Rehabilitation | DX: G56.03 Carpal tunnel syndrome, bilateral upper limbs (principal); G56.22 Lesion of ulnar nerve, left upper limb; M19.041 Primary osteoarthritis, right hand; M19.042 Primary osteoarthritis, left hand; Z86.73 Personal history of transient ischemic attack (TIA), and cerebral infarction without residual deficits | CPT/HCPCS: 99202 ==

== ENCOUNTER 2023-06-21 09:32 | Outpatient (REF) | payer OTHER, SELFPAY ==
[2023-06-21 10:35] LABS: Alanine Aminotransferase 23 U/L (0-40); Albumin Level 4.2 g/dL (3.5-5.0); Alkaline Phosphatase 66 U/L (39-117); Aspartate Amino Transferase 19 U/L (5-37); Bilirubin Direct 0.3 mg/dL (0.0-0.5); Bilirubin Total 0.6 mg/dL (0.0-1.0); Total Protein 7.9 g/dL (6.5-8.0)
[2023-06-24 15:55] LABS: HCV RNA PCR Qn <1.18 NOT DETECTED Log IU/mL (NOT DETECTED); HCV RNA PCR Qn <15 NOT DETECTED IU/mL (NOT DETECTED)
== END 2023-06-21 09:33 | disposition home or self-care (01) ==
LOC: HO.LAB 09:32
PROVIDERS: PCP Family Medicine; Visit Provider Nurse Practitioner Family
DX: B19.20 Unspecified viral hepatitis C without hepatic coma (principal); Z86.19 Personal history of other infectious and parasitic diseases
CPT/HCPCS: 36415; 80076; 87522; 87902

== ENCOUNTER 2023-06-25 08:35 | Outpatient (AMB) | payer OTHER, SELFPAY ==
[2023-06-25 08:38] VITALS: BP 130/80; PULSE 77; O2SAT 99; BMI 21.0
--- NOTE | 2023-06-25 08:38 | A.OFFPC_ITS ---
Vital Signs 06/25/23 08:38 Height 6 ft 6 in Weight 182 lb BMI 21.0 BP 130/80 Blood Pressure Location Lt brachial Position Sitting Pulse 77 Pulse Source Pulse Oximeter Pulse Oximetry (%) 99 Oxygen Delivery Method Room Air Intake Visit Reasons: f/u diabetes, hypertension Intake Note: Patient is here for follow up on diabetes and hypertension. Patient states he did not get his allergy meds, or laxative med. Allergies aspirin [ASPIRIN] Allergy (Unknown, Verified 06/25/23 08:43) ITCH Sinus Allergy (Unknown, Uncoded 06/25/23 08:43) unknown Tobacco use date assessed: 06/25/23 HPI f/u diabetes, hypertension HPI Details 62 y/o male presents to f/u diabetes, hy pertension. Last A1c in May 5.6%. Blood pressure today 130/80. He is on lisinopril-HCTZ 20-12.5mg daily. [facility] Medical History History of stroke Degenerative joint disease of hand Carpal tunnel syndrome on both sides Asthma Intracranial hemorrhage Diabetes mellitus HTN (hypertension) Surgical History History of gallstones History of tonsillectomy History of colonoscopy Family History Father HTN (hypertension) CVD (cardiovascular disease) Diabetes mellitus Mother HTN (hypertension) CVD (cardiovascular disease) Diabetes mellitus Sister No problems noted. Sister No problems noted. Sister Breast cancer Son No problems noted. Social History Household Members: Spouse Housing: Apartment Are you a primary care management coordinator to a significant other at home: No Do you presently have visiting nurse or other home services: No 75 years or older and lives alone: No Alcohol intake: current Alcohol intake frequency: holidays/special occasions only Patient Tobacco Use Status: Former Tobacco user Tobacco use type: Cigarette Cigarettes Per Day: 10 Years Smoked: 2 Packs per year/per ci.00 e-Cigarette/Vaping Use: Never Used Second Hand Smoke Exposure: No Special florencia needs: No Agree to transfusion: Yes service: No 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al status: disabled 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 Erik Napoles, Genie Hernandez, Stew Edeg and colleagues, with an educational sami from [employer]. Review of Systems Const Denies chills, Denies fatigue, Denies fever(s), Denies headache(s) and Denies weakness ENT Denies dizziness and Denies headache(s) Card Denies dyspnea Resp Denies cough, Denies dyspnea, Denies wheezing and Denies other (shortness of br eath) Musc Denies numbness and Denies tingling Neuro Denies dizziness, Denies headache(s), Denies numbness, Denies tingling and Denies weakness Psych Denies anxiety and Denies depression Endo Denies fatigue Aller/Immun Denies wheezing Physical exam (Primary Care) Vital Signs: Last Vital Signs Pulse 77 06/25/23 08:38 BP 130/80 06/25/23 08:38 Pulse Ox 99 06/25/23 08:38 Oxygen Delivery Method Room Air 06/25/23 08:38 BMI result Body Mass Index 21.0 Tobacco/Smoking Status: Tobacco use Status Tobacco use date assessed 06/25/23 06/25/23 08:46 Patient Tobacco Use Status Former Tobacco user 06/25/23 08:46 Tobacco use type Cigarette 06/25/23 08:46 e-Cigarette/Vaping Use Never Used 06/25/23 08:46 Thrive Assessment: Date of Thrive Assessment Date Thrive assessed 01/18/23 06/25/23 08:46 Const General: well developed; No acute distress Nutritional Appearance: well nourished Orientation/consciousness: patient oriented x3 HENMT Head: Yes normocephalic and Yes atraumatic Eyes General: appearance normal, both eyes and all related structures Pupils: Equal, round and reactive pupils present EOM: EOMs intact bilaterally Resp Effort & Inspection: normal respiratory effort Auscultation: clear to auscultation bilaterally Cardio Rate: regular rate Rhythm: regular rhythm Heart sounds: S1 normal heart sound present, S2 normal heart sound present, no gallops, no murmurs and no rubs Neuro General: patient oriented x3 and gait normal Cranial nerves: Yes Equal, round and reactive pupils present Psych Affect: normal affect Assessment and Plan Assessment & Plan (1) Type 2 diabetes, controlled, with neuropathy: Code(s): E11.40 - Type 2 diabetes mellitus with diabetic neuropathy, unspecified Plan: A1c?5.6%;?good?control.??Goal?is?less?than?7.0% Continue?current?medication?regimen Diabetic?eye?exam?in?February?2022?showed?no?retinopathy.??Up-to-date (2) Essential hypertension: Code(s): I10 - Essential (primary) hypertension Plan: Blood?pressure?is?fairly?well?controlled.??Goal?is?less?than?130/80 Continue?current?medication?regimen?and?work?on?a?diet?low?in?salt/sodium Medications: Refilled cetirizine (All Day Allergy (cetirizine)) 10 mg PO DAILY 90 days 90 tabs 3RF allergy symptoms methylcellulose (laxative) (Citrucel) take it with full glass of water 500 mg PO DAILY 30 tabs 2RF K59.00 - Constipation, unspecified Coding Level of Care Code Est Pt Level 4 (68832) Diagnoses Type 2 diabetes, controlled, with neuropathy E11.40 Essential hypertension I10
== END 2023-06-25 09:18 | disposition home or self-care (01) ==
PROVIDERS: PCP Family Medicine; Visit Provider Family Medicine
DX: E11.40 Type 2 diabetes mellitus with diabetic neuropathy, unspecified (principal); I10 Essential (primary) hypertension
CPT/HCPCS: 99214

== ENCOUNTER 2023-06-26 09:20 | Outpatient (AMB) | payer OTHER, SELFPAY ==
[2023-06-26 09:27] VITALS: BP 159/74; PULSE 74; BMI 21.3
--- NOTE | 2023-06-26 09:27 | A.OFFVIS_ITS ---
Intake Vital Signs 06/26/23 09:27 Height 6 ft 6 in Weight 184 lb 4.903 oz BMI 21.3 BP 159/74 H Blood Pressure Location Lt brachial Position Sitting Pulse 74 Pulse Source Pulse Oximeter Intake Visit Reasons: 1 mnth follow up Intake Note: Pt presents to the office today for a 1 month follow up. Pt states he is feeling well and denies any GI concerns at this time. Allergies aspirin [ASPIRIN] Allergy (Unknown, Verified 06/26/23 09:29) ITCH Sinus Allergy (Unknown, Uncoded 06/26/23 09:29) unknown Medication List - Last Reconciled 06/26/23 by Claudia Huntley, [facility] blood pressure monitor Automatic, Digital. Dx: I10. Daily As directed, 999 days/lifetime blood sugar diagnostic (FreeStyle Lite Strips) DX: E11.9, test blood sugar 2 times a day, 90 days blood-glucose meter (FreeStyle Lite Meter kit) DX: E11.9, test blood sugar 2 times a day, duration 999 days cetirizine (All Day Allergy (cetirizine)) 10 mg PO DAILY 90 days famotidine 20 mg PO BID flash glucose scanning reader (OnTheRoadStyle Law 2 [place]) As directed flash glucose sensor (FreeStyle Law 2 Sensor kit) 28 day supply fluticasone propionate 50 mcg/actuation (Flonase Allergy Relief) 1 spray intranasal Q12H 30 days gabapentin 300 mg PO BID 30 days hydrocortisone 2.5% (Proctosol HC) 1 appl DC BID-QID PRN insulin glargine (Basaglar KwikPen U-100 Insulin) 50 units (0.5 mL) subcut QPM 90 days lancets (FreeStyle Lancets) As directed lisinopril-hydrochlorothiazide 20-12.5 mg 1 tab PO DAILY 90 days metformin 500 mg PO BID 90 days methylcellulose (laxative) (Citrucel) 500 mg PO DAILY pen needle, diabetic (BD Vida 2nd Gen Pen Needle) DX: E11.9, daily As directed to treat blood sugar, 90 day supply trazodone 50 mg PO BEDTIME 30 days HPI 1 mnth follow up HPI Details LAST VISIT Hepatitis C Plan Continue treatment with good loose a, patient denies any GI concerning symptoms. Patient was encouraged to call his pharmacy way ahead for medications to make sure that he does not misses any more doses. Patient can take Citrucel to help him bulk his stools, occasional loose stools depending on what he eats. I will see patient in 1 month, sooner on as needed basis. Patient is agreeable to this plan and verbalizes understanding of instructions. He was given the opportunity to ask questions and all questions answered. ? Thank you for allowing me to participate in his care Orders Orders Liver Panel 05/28/23 B19.20 Hepatitis C Viral Load 05/28/23 Z86.19 Medications New methylcellulose (laxative) (Citrucel) take it with full glass of water 500 mg PO DAILY 30 tabs 2RF K59.00 TODAY'S VISIT Patient is here today for follow-up. Patient reports that he has been feeling very well. Denies any GI concerning symptoms. Patient reports to have good appetite. He has about 2 weeks left of Epclusa treatment. Tolerating medication well. Undetectable viral load, liver enzymes normal. Patient denies any dyspepsia, dysphagia odynophagia. Denies melena, hematochezia, u nintentional weight loss or ribbon like stools. [facility] Medical History History of stroke Degenerative joint disease of hand Carpal tunnel syndrome on both sides Asthma Intracranial hemorrhage Diabetes mellitus HTN (hypertension) Surgical History History of gallstones History of tonsillectomy History of colonoscopy Family History Father HTN (hypertension) CVD (cardiovascular disease) Diabetes mellitus Mother HTN (hypertension) CVD (cardiovascular disease) Diabetes mellitus Sister No problems noted. Sister No problems noted. Sister Breast cancer Son No problems noted. Social History Household Members: Spouse Housing: Apartment Are you a primary medical care manager to a significant other at home: No Do you presently have visiting nurse or other home services: No 75 years or older and lives alone: No Alcohol intake: current Alcohol intake frequency: holidays/special occasions only Patient Tobacco Use Status: Former Tobacco user Tobacco use type: Cigarette Cigarettes Per Day: 10 Years Smoked: 2 e-Cigarette/Vaping Use: Never Used Second Hand Smoke Exposure: No Special florencia needs: No Agree to transfusion: Yes service: No 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al status: disabled 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al exposures/hazards: No Sexual orientation: Straight/Heterosexual Gender identity: Male Cognitive needs: No Hearing needs: No Vision needs: No Review of Systems Const Denies weight gain and Denies weight loss ENT Reports no additional complaints, Denies dysphagia and Denies odynophagia Card Reports no additional complaints Resp Reports no additional complaints GI Denies abdominal pain, Denies belching, Denies melena, Denies bloating, Denies change in bowel habits, Denies dysphagia, Denies excessive flatus, Denies dyspepsia, Denies heartburn, Denies diarrhea, Denies loose stools, Denies nausea, Denies odynophagia and Denies vomiting Reports no additional complaints Musc Reports no additional complaints Neuro Reports no additional complaints Psych Reports no additional complaints Endo Reports no additional complaints Physical Exam Vital Signs: Last Vital Signs Pulse 74 06/26/23 09:27 BP 159/74 H 06/26/23 09:27 BMI result Body Mass Index 21.3 Const General: healthy appearing, no acute distress and well developed Nutritional Appearance: well nourished Orientation/consciousness: patient oriented x3 HEENT Head: Yes normal to inspection, Yes normocephalic and Yes atraumatic Face and sinus: Yes normal facial exam Mouth: Normal oral and palatal mucosa present Throat: Yes posterior oropharynx normal, Yes tonsils normal and Yes uvula midline Eyes General: appearance normal, both eyes and all related structures Neck Neck: Yes normal visual inspection, Yes full ROM and Yes trachea midline Thyroid: Thyroid normal Resp Effort & Inspection: normal respiratory effort, able to speak in complete sentences, no tracheal deviation and symmetric chest movement Auscultation: clear to auscultation bilaterally Cardio Rate: regular rate GI Inspection: Yes normal to inspection and No distended Palpation (GI): Soft to palpation, not firm, nontender and No hepatosplenomegaly present Auscultation: normal bowel sounds General: Yes no CVA tenderness Back/Spine/Pelvis Back: no CVA tenderness Skin General skin exam: elasticity normal, turgor normal and dry skin Neuro General: patient oriented x3 Psych Appearance: grossly normal Mental Status: mental status grossly normal Affect: normal affect Assessment & Plan Assessment & Plan (1) Hepatitis C: Code(s): B19.20 - Unspecified viral hepatitis C without hepatic coma Qualifiers: Hepatic coma status: without hepatic coma Viral hepatitis chronicity: chronic Qualified Code(s): B18.2 - Chronic viral hepatitis C Plan Patient will return in 6-7 weeks. Will recheck liver fibrosis panel. Patient will be sent for another ultrasound of the liver. Viral load negative. Continue Epclusa. Patient reports that he has about 2 weeks left of the treatment. Coding Level of Care Code Est Pt Level 3 (47942) Diagnoses Chronic hepatitis C without hepatic coma B18.2 Hepatic coma status: without hepatic coma Viral hepatitis chronicity: chronic Time Spent (min) 25 Comment 15 minutes spent with patient and additional 10 minutes spent reviewing his records
== END 2023-06-26 09:49 | disposition home or self-care (01) ==
PROVIDERS: PCP Family Medicine; Visit Provider Nurse Practitioner Family
DX: B18.2 Chronic viral hepatitis C (principal)
CPT/HCPCS: 99213

== ENCOUNTER → 2023-06-26 09:20 | Outpatient (BNVA) | payer OTHER, SELFPAY | PROVIDERS: PCP Family Medicine; Visit Provider Nurse Practitioner Family | DX: B18.2 Chronic viral hepatitis C (principal) | CPT/HCPCS: 99212 ==

== ENCOUNTER 2023-07-19 09:11 | Outpatient (REF) | payer OTHER, SELFPAY ==
--- NOTE | 2023-07-19 09:13 | EMG_ITS ---
Chief complaint: Finger numbness, both median and ulnar nerve distribution. Please see my last office note. Reason for referral: Evaluate for ulnar neuropathy versus Carpal Tunnel Syndrome Procedure done: Bilateral upper extremities NCS/EMG Precautions and/or limitations: None The limb temperature was monitored continuously and remained between 32-36 degrees C during the performance of the NCS. Ulnar motor NCS was performed with moderate elbow flexion between 70-90 degrees, with across-elbow distance of 10 cm. Nerve Conduction Studies Anti Sensory Summary Table ?Stim Site NR Onset (ms) Norm Onset (ms) Peak (ms) Norm Peak (ms) O-P Amp (?V) Norm O-P Amp Site1 Site2 Delta-0 (ms) Dist (cm) Jake (m/s) Norm Jake (m/s) Left Median Anti Sensory (2nd Digit) Wrist NR <3.6 >10 Wrist 2nd Digit 14.0 Right Median Anti Sensory (2nd Digit) Wrist NR <3.6 >10 Wrist 2nd Digit 14.0 Left Radial Anti Sensory (Thumb) Forearm ? 2.4 2.8 <3.1 0.2 Forearm Thumb 2.4 0.0 Right Radial Anti Sensory (Thumb) Forearm ? 2.4 2.9 <3.1 6.0 Forearm Thumb 2.4 0.0 Left Ulnar Anti Sensory (5th Digit) Wrist NR <3.7 >15.0 Wrist 5th Digit 14.0 Right Ulnar Anti Sensory (5th Digit) Wrist ? 3.6 4.8 <3.7 1.9 >15.0 Wrist 5th Digit 3.6 14.0 39 Motor Summary Table ?Stim Site NR Onset (ms) Norm Onset (ms) O-P Amp (mV) Norm O-P Amp iAmp (mV) Amp (1st) (%) Site1 Site2 Delta-0 (ms) Dist (cm) Jake (m/s) Norm Jake (m/s) Left Median Motor (Abd Poll Brev) Wrist ? 4.8 <3.9 4.6 >4.5 5.2 100.0 Elbow Wrist 6.8 28.0 41 >45 Elbow ? 11.6 4.4 5.0 95.7 Right Median Motor (Abd Poll Brev) Wrist ? 4.2 <3.9 6.1 >4.5 7.0 100.0 Elbow Wrist 6.5 27.0 42 >45 Elbow ? 10.7 5.2 6.1 85.2 Left Ulnar Motor (Abd Dig Minimi) Wrist ? 4.8 <3.0 1.9 >5 2.7 100.0 B Elbow Wrist 5.9 23.0 39 >45 B Elbow ? 10.7 1.6 2.4 84.2 A Elbow B Elbow 2.0 10.0 50 >45 A Elbow ? 12.7 1.5 2.2 78.9 Right Ulnar Motor (Abd Dig Minimi) Wrist ? 4.1 <3.0 3.3 >5 3.7 100.0 B Elbow Wrist 5.9 26.0 44 >45 B Elbow ? 10.0 3.1 3.5 93.9 A Elbow B Elbow 2.0 10.0 50 >45 A Elbow ? 12.0 2.5 2.9 75.8 Left Ulnar Motor (FDI) Wrist ? 7.5 <3.0 1.2 >5 1.5 100.0 B Elbow FDI 7.5 25.0 33 B Elbow ? 13.4 1.1 1.3 91.7 A Elbow B Elbow 5.9 10.0 17 >45 A Elbow ? 16.2 1.1 1.2 91.7 >45 Right Ulnar Motor (FDI) Wrist ? 5.5 <3.0 3.1 >5 3.7 100.0 B Elbow FDI 5.5 25.0 45 B Elbow ? 11.5 2.5 3.0 80.6 A Elbow B Elbow 6.0 10.0 17 >45 A Elbow ? 13.6 2.6 3.1 83.9 >45 EMG ?Side Muscle Nerve Root Ins Act Fibs Psw Amp Dur Poly Recrt Int Pat Comment Right 1stDorInt Ulnar C8-T1 Nml Nml Nml Incr Incr 0 Nml Complete Right Biceps Musculocut C5-6 Nml Nml Nml Nml Nml 0 Nml Complete Right Triceps Radial C6-7-8 Nml Nml Nml Nml Nml 0 Nml Complete Right Deltoid Axillary C5-6 Nml Nml Nml Nml Nml 0 Nml Complete Right FlexCarpiUln Ulnar C8,T1 Nml Nml Nml Nml Nml 0 Nml Complete Left 1stDorInt Ulnar C8-T1 Nml Nml Nml Incr Incr 0 Nml Complete Left Biceps Musculocut C5-6 Nml Nml Nml Nml Nml 0 Nml Complete Left Triceps Radial C6-7-8 Nml Nml Nml Nml Nml 0 Nml Complete Left Deltoid Axillary C5-6 Nml Nml Nml Nml Nml 0 Nml Complete Left FlexCarpiUln Ulnar C8,T1 Nml Nml Nml Nml Nml 0 Nml Complete FINDINGS: Right median motor nerve showed prolonged distal latency, normal amplitude and slow conduction velocity. Right ulnar motor nerve, recording ADM, showed prolonged distal latency, small amplitude and slow conduction velocity distally. Right ulnar motor nerve, recording FDI, showed prolonged distal latency, small amplitude and slowing of conduction velocity across the elbow. Left median motor nerve showed prolonged distal latency, normal amplitude and slow conduction velocity. Left ulnar motor nerve, recording ADM, showed prolonged distal latency, small amplitude and slow conduction velocity distally. Left ulnar motor nerve, recording FDI, showed prolonged distal latency, small amplitude and slowing of conduction velocity across the elbow. Right median sensory nerve showed prolonged peak latency and small amplitude. Right ulnar sensory nerve showed no response. Right radial sensory nerve was within normal. Left motor and ulnar sensory nerves showed no response. Concentric needle EMG was performed in selected muscles of the bilateral upper extremities. Study revealed Signs of electric abnormalities as shown in the table below. Bilateral FDI muscle showed increased amplitude and duration. IMPRESSION: 1. This is an abnormal study. 2. There is electrodiagnostic evidence for bilateral moderate-severe median neuropathy at the wrist, consistent with carpal tunnel syndrome. 3. There is electrodiagnostic evidence for bilateral ulnar neuropathy at the elbow. 4. There is no electrodiagnostic evidence for brachial plexopathy, or cervical radiculopathy. CLINICAL COMMENT: We will refer to Dr. Mazariegos for surgical options. Thank you for your kind referral. Leigh Marte MD, JOSIAH Board Certified, [place] [employer] and Rehabilitation (ABPMR) Board Certified, [place] Board [employer] Electrodiagnostic Medicine (ABEM) CODIN 60357 x 2 MTDD
== END 2023-07-19 09:12 | disposition home or self-care (01) ==
LOC: HO.NEURO 09:11
PROVIDERS: PCP Family Medicine; Visit Provider Physical Medicine & Rehabilitation
DX: G56.03 Carpal tunnel syndrome, bilateral upper limbs (principal)
CPT/HCPCS: 95886; 95911

== ENCOUNTER → 2023-07-19 09:13 | Outpatient (BNV) | payer OTHER, SELFPAY | PROVIDERS: PCP Family Medicine; Visit Provider Physical Medicine & Rehabilitation | DX: G56.03 Carpal tunnel syndrome, bilateral upper limbs (principal); G56.23 Lesion of ulnar nerve, bilateral upper limbs | CPT/HCPCS: 95886; 95912 ==

== ENCOUNTER 2023-08-14 09:34 | Outpatient (AMB) | payer OTHER, SELFPAY ==
--- NOTE | 2023-08-14 09:42 | A.OFFVIS_ITS ---
Intake Vital Signs 08/14/23 09:44 Height 6 ft 6 in Weight 176 lb BMI 20.3 BP 147/87 H Blood Pressure Location Lt brachial Position Sitting Pulse 94 Intake Visit Reasons: 7 week follow up Intake Note: Patient follow up HCV Patient cc: cough and denies any GI issues. 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 Will recheck liver fibrosis panel. Patient will be sent for another ultrasound of the liver. Viral load negative. Continue Epclusa. Patient reports that he has about 2 weeks left of the treatment. TODAY'S VISIT Patient is here today for follow-up. Finished Epclusa couple weeks ago, reports to be feeling better. Patient does admit to have increased cough and acid reflux. Patient denies any fever or chills. States that he takes famotidine at bedtime and for the most part his symptoms are suppressed. Patient reports that his blood sugars have been good. We checked viral load in June and it was negative. Patient denies any melena, hematochezia, unintentional weight loss or ribbon like stools. [facility] Medical History History of stroke Degenerative joint disease of hand Carpal tunnel syndrome on both sides Asthma Intracranial hemorrhage Diabetes mellitus HTN (hypertension) Surgical History History of gallstones History of tonsillectomy History of colonoscopy Family History Father HTN (hypertension) CVD (cardiovascular disease) Diabetes mellitus Mother HTN (hypertension) CVD (cardiovascular disease) Diabetes mellitus Sister No problems noted. Sister No problems noted. Sister Breast cancer Son No problems noted. Social History Household Members: Spouse Housing: Apartment Are you a primary memory care director to a significant other at home: No Do you presently have visiting nurse or other home services: No 75 years or older and lives alone: No Alcohol intake: current Alcohol intake frequency: holidays/special occasions only Patient Tobacco Use Status: Former Tobacco user Tobacco use type: Cigarette Cigarettes Per Day: 10 Years Smoked: 2 e-Cigarette/Vaping Use: Never Used Second Hand Smoke Exposure: No Special florencia needs: No Agree to transfusion: Yes service: No 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al status: disabled 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al exposures/hazards: No Sexual orientation: Straight/Heterosexual Gender identity: Male Cognitive needs: No Hearing needs: No Vision needs: No Review of Systems Const Denies weight gain and Denies weight loss ENT Reports no additional complaints, Denies dysphagia and Denies odynophagia Card Reports no additional complaints Resp Reports cough GI Denies abdominal pain, Denies belching, Denies melena, Denies bloating, Denies change in bowel habits, Denies dysphagia, Denies excessive flatus, Denies dyspepsia, Reports heartburn, Denies diarrhea, Denies loose stools, Denies nausea, Denies odynophagia and Denies vomiting Reports no additional complaints Musc Reports no additional complaints Neuro Reports no additional complaints Psych Reports no additional complaints Endo Reports no additional complaints Physical Exam Vital Signs: Last Vital Signs Pulse 94 08/14/23 09:44 BP 147/87 H 08/14/23 09:44 BMI result Body Mass Index 20.3 Const General: healthy appearing, no acute distress and well developed Nutritional Appearance: well nourished Orientation/consciousness: patient oriented x3 Resp Effort & Inspection: normal respiratory effort, able to speak in complete sentences, no tracheal deviation and symmetric chest movement Auscultation: clear to auscultation bilaterally Cardio Rate: regular rate GI Inspection: Yes normal to inspection and No distended Palpation (GI): Soft to palpation, not firm, nontender and No hepatosplenomegaly present Auscultation: normal bowel sounds General: Yes no CVA tenderness Back/Spine/Pelvis Back: no CVA tenderness Skin General skin exam: elasticity normal, turgor normal and dry skin Neuro General: patient oriented x3 Psych Appearance: grossly normal Mental Status: mental status grossly normal Assessment & Plan Assessment & Plan (1) Hepatitis C: Code(s): B19.20 - Unspecified viral hepatitis C without hepatic coma Qualifiers: Viral hepatitis chronicity: chronic Hepatic coma status: without hepatic coma Qualified Code(s): B18.2 - Chronic viral hepatitis C (2) Cough: Code(s): R05.9 - Cough, unspecified Qualifiers: Cough type: unspecified Qualified Code(s): R05.9 - Cough, unspecified (3) GERD (gastroesophageal reflux disease): Code(s): K21.9 - Gastro-esophageal reflux disease without esophagitis Qualifiers: Esophagitis presence: esophagitis presence not specified Qualified Code(s): K21.9 - Gastro-esophageal reflux disease without esophagitis Plan Patient has liver ultrasound schedule end of this month. He will return in 3 months and we will repeat his levels. Patient will start taking pantoprazole in the morning and can continue famotidine at bedtime. Most likely his cough is related to reflux. We will restart him on PPI and see if his symptoms get better. Continue avoiding dietary triggers and late night snacking. Staying upright for minimum 3 hours after meals discussed with patient. Next visit we will discuss going for colonoscopy. Patient will be sent for upper endoscopy to rule out gastritis, duodenitis, Hartley's. Patient is agreeable to this plan and verbalizes understanding of instructions. He was given the opportunity to ask questions all questions answered. Thank you for allowing me to participate in his care Orders: Orders Complete Blood Count no Diff 3 Months K21.9 - Gastro-esophageal reflux disease without esophagitis Liver Panel 3 Months R74.01 - Elevation of levels of liver transaminase levels Prothrombin Time INR 3 Months R74.8 - Abnormal levels of other serum enzymes Medications: New pantoprazole take one tablet half an hour before breakfast 40 mg PO DAILY 90 tabs 2RF K21.9 - Gastro-esophageal reflux disease without esophagitis Changed From famotidine 20 mg PO BID To famotidine 20 mg PO BEDTIME 90 tabs 0RF Coding Level of Care Code Est Pt Level 3 (02369) Diagnoses Chronic hepatitis C without hepatic coma B18.2 Viral hepatitis chronicity: chronic Hepatic coma status: without hepatic coma Cough, unspecified type R05.9 Cough type: unspecified Gastroesophageal reflux disease, unspecified whether esophagitis present K21.9 Esophagitis presence: esophagitis presence not specified Time Spent (min) 25 Comment 15 minutes spent with patient and additional 10 minutes spent reviewing his rec ords
[2023-08-14 09:44] VITALS: BP 147/87; PULSE 94; BMI 20.3
== END 2023-08-14 10:03 | disposition home or self-care (01) ==
PROVIDERS: PCP Family Medicine; Visit Provider Nurse Practitioner Family
DX: B18.2 Chronic viral hepatitis C (principal); R05.9 Cough, unspecified; K21.9 Gastro-esophageal reflux disease without esophagitis
CPT/HCPCS: 99213

== ENCOUNTER → 2023-08-14 09:34 | Outpatient (BNVA) | payer OTHER, SELFPAY | PROVIDERS: PCP Family Medicine; Visit Provider Nurse Practitioner Family | DX: K21.9 Gastro-esophageal reflux disease without esophagitis (principal); R05.9 Cough, unspecified; B18.2 Chronic viral hepatitis C | CPT/HCPCS: 99212 ==

== ENCOUNTER 2023-08-28 08:24 | Outpatient (REF) | payer OTHER, SELFPAY ==
--- NOTE | ~2023-08-28 | FL_ITS ---
EXAMINATION: XR FLUOROSCOPY BARIUM SWALLOW CLINICAL INFORMATION: Dysphagia COMPARISON: None TECHNIQUE: Fluoroscopic air contrast upper GI examination was performed utilizing standard techniques with thin and thick barium and effervescent granules. Numerous spot images were obtained. FINDINGS: Lateral cine images of the oropharynx and hypopharynx demonstrate normal swallow mechanism with normal epiglottic inversion and soft palate elevation. There is excessive pooling of contrast in the vallecula and the pyriform sinuses. Initially there was trace silent laryngeal penetration with thick barium that cleared with coughing. A tiny amount of silent subglottic and tracheal aspiration was observed mid examination. Hypopharyngeal structures appear normal without evidence of mass or diverticulum. Mild ballooning of the hypopharynx noted. There is mild cricopharyngeal achalasia present as seen on RF #1-5. Dual and single contrast images of the esophagus demonstrate normal caliber, contour, and mucosal pattern. No evidence of stricture, mass, or ulcerations identified. Primary esophageal peristalsis was normal. Minimal nonpropulsive tertiary contractions present. A very small type I hiatal hernia is present. No significant gastroesophageal reflux was seen during the course of the examination and on reflux views. Limited views of the stomach appear normal. FLUOROSCOPY TIME: 3 minutes 30 seconds Number of Spot Images: 6 Number of Cine: 7 DOSE AREA PRODUCT: 1191 uGy-m2 (microgray-meter squared) FL/FL barium swallow IMPRESSION: 1. Excessive pooling of contrast in the vallecula and the pyriform sinuses. Mild ballooning of the hypopharynx noted. 2. Mild silent laryngeal penetration with thick barium at the initial portion of the study. A tiny amount of silent subglottic aspiration was observed mid examination. 3. Mild cricopharyngeal achalasia. 4. Very small type I hiatal hernia This procedure was performed by Jun Rinaldi PA-C, and supervised by Dr. Acosta
== END 2023-08-28 08:25 | disposition home or self-care (01) ==
LOC: HO.XRAY 08:24
PROVIDERS: PCP Family Medicine; Visit Provider Nurse Practitioner Family
DX: R13.10 Dysphagia, unspecified (principal)
CPT/HCPCS: 74220

== ENCOUNTER → 2023-08-28 08:25 | Outpatient (BNV) | payer OTHER, SELFPAY | PROVIDERS: PCP Family Medicine; Visit Provider Physician Assistant Surgical | DX: R13.10 Dysphagia, unspecified (principal) | CPT/HCPCS: 74221 ==

== ENCOUNTER 2023-09-03 08:33 | Outpatient (AMB) | payer OTHER, SELFPAY ==
[2023-09-03 08:42] VITALS: BMI 20.3
--- NOTE | 2023-09-03 08:42 | A.OFFVIS_ITS ---
Intake Vital Signs 09/03/23 08:42 Height 6 ft 6 in Weight 176 lb BMI 20.3 Intake Visit Reasons: ov-Carpal tunnel syndrome, bilateral Intake Note: Arvind 63 yr old male presents today for his follow up visit for bilateral hand Carpal tunnel syndrome. He recalls he fell on March injuring his hand. Reports he is not able to fully extend his finger and has severe pain in his left pinky and ring finger. Denies O.T or injections. Patient is diabetic and his last A1C done in April was a 5.0. Last seen with Dr. Allen who order an EMG and patient is here for EMG review. States his left is worse. Allergies aspirin [ASPIRIN] Allergy (Unknown, Verified 09/03/23 08:47) ITCH Sinus Allergy (Unknown, Uncoded 09/03/23 08:47) unknown HPI ov-Carpal tunnel syndrome, bilateral HPI Details Arvind is a 63 year old right hand dominant Diabetic man who presents for a NCS review of his bilateral hand numbness. He has a history of a stroke in ~2020, left hemiparesis, still with residuals. (Dr. Allen note from 06/06/23). He complains of numbness in his bilateral hands, including in the ring & small fingers, L>R. He also complains of pain in his left ring & small fingers, which he says has been present since a fall in 03/2023. He has been using a squeeze ball at home for hand exercises. He has a hx of Hepatitis C, which has been treated, & DM, his most recent HgA1c was 5.6% on 05/21/23. He is out of work on disability. He says he was working on his car recently and he often bumps & scrapes his hands. His hands are very dry but he says he moisturizes often. PENDING SALE TO [facility] Medical History History of stroke Degenerative joint disease of hand Carpal tunnel syndrome on both sides Asthma Intracranial hemorrhage Diabetes mellitus HTN (hypertension) Surgical History History of gallstones History of tonsillectomy History of colonoscopy Family History Father HTN (hypertension) CVD (cardiovascular disease) Diabetes mellitus Mother HTN (hypertension) CVD (cardiovascular disease) Diabetes mellitus Sister No problems noted. Sister No problems noted. Sister Breast cancer Son No problems noted. 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al exposures/hazards: No Sexual orientation: Straight/Heterosexual Gender identity: Male Cognitive needs: No Hearing needs: No Vision needs: No Review of Systems Const All systems reviewed & are unremarkable except as noted in HPI and below Physical Exam Vital Signs: BMI result Body Mass Index 20.3 Const General: no acute distress and alert Orientation/consciousness: patient oriented x3 HEENT Head: Yes normocephalic and Yes atraumatic Eyes EOM: EOMs intact bilaterally Resp Effort & Inspection: normal respiratory effort and able to speak in complete sentences Cardio Jugular venous distension: no JVD Skin General skin exam: turgor normal Rashes: no rashes Neuro General: patient oriented x3 Extrem Other: Evaluation of Bilateral Upper Extremity: The patient is alert, oriented, and in no acute distress Neuro: Regarding the left hand: Dense numbness to the tips of all digits Severe intrinsic wasting, no thenar wasting Good APB muscle belly firing Weak ABduction and ADduction of fingers, but can do this Regarding the right hand: Dense numbness in the median nerve distribution Diminished & not normal sensation in the ulnar nerve distribution Not as much intrinsic wasting Good APB muscle belly firing Vascular: Cap refill brisk ROM: Regarding the left hand With encouragement, he can make a fist and extend all his digits Mild flexion contractures of all PIP joints, from ~5 degrees at index finger to ~25 degrees in the middle, ring, and small fingers Regarding the right hand: With encouragement, he can make a fist and extend all his digits Mild flexion contractures of all PIP joints: Index: ~10 degrees Middle: ~15 degrees Ring: ~20 degrees Small: ~25 degrees Skin very dry bilaterally Healing scrapes on dorsal aspects of fingers from working on his car Nerve Conduction Study: IMPRESSION: 1. This is an abnormal study. 2. There is electrodiagnostic evidence for bilateral moderate-severe median neuropathy at the wrist, consistent with carpal tunnel syndrome. 3. There is electrodiagnostic evidence for bilateral ulnar neuropathy at the elbow. 4. There is no electrodiagnostic evidence for brachial plexopathy, or cervical radiculopathy. Thank you for your kind referral. Leigh Marte MD, JOSIAH 07/19/23 Radiographs: 3 views of the left hand from 04/04/23 were reviewed by me today in clinic. They show no fractures or dislocations. Psych Appearance: grossly normal Affect: normal affect Attitude: cooperative Assessment & Plan Assessment & Plan (1) Carpal tunnel syndrome on both sides: Code(s): G56.03 - Carpal tunnel syndrome, bilateral upper limbs (2) Cubital tunnel syndrome, bilateral: Code(s): G56.23 - Lesion of ulnar nerve, bilateral upper limbs (3) History of stroke: Code(s): Z86.73 - Personal history of transient ischemic attack (TIA), and cerebral infarction without residual deficits (4) Type 2 diabetes, controlled, with neuropathy: Code(s): E11.40 - Type 2 diabetes mellitus with diabetic neuropathy, unspecified (5) History of hepatitis C: Code(s): Z86.19 - Personal history of other infectious and parasitic diseases (6) Stiffness of hand joint: Code(s): M25.649 - Stiffness of unspecified hand, not elsewhere classified Plan Assessment & Plan: 1. Right Carpal tunnel syndrome, moderate-severe With dense numbness 2. Right cubital tunnel syndrome, Not normal sensation today in clinic I educated him about this condition I discussed operative and non-operative treatment options The patient would like to proceed with surgery, beginning with the right side as this is his dominant hand and it is important to preserve muscle function The risks and benefits of operative treatment were discussed with the patient and the patient wishes to proceed with surgery. These risks include, but are not limited to risk of damage to blood vessels, nerves, tendons, infection, recurrence, incomplete relief of preoperative symptoms, persistent pain, possible need for further surgery and the risks associated with regional blocks and anesthesia. The plan is to take the patient to the operating room sometime in the next few weeks for the following procedures: 1. Right carpal tunnel syndrome, under general 2. Right cubital tunnel syndrome vs transposition, under general All of the preoperative paperwork including the consent was reviewed today. All the patient's questions were answered. The patient understands that they will be contacted by our inside sales advertising executive soon to schedule this procedure. He is not working and is available for surgery sooner if there is a cancellation He denies blood thinners, asthma, heart, lung, kidney issues He has a hx of stroke in 2020, he denies any blood thinners but will need PCP clearance prior to surgery He is a Diabetic, his most recent HgA1c was 5.6% on 05/21/23 He has a hx of Hepatitis C, which has been successfully treated 3. Left Carpal tunnel syndrome, moderate-severe With dense numbness 4. Left cubital tunnel syndrome With dense numbness Severe intrinsic wasting We can discuss treatment for this at his first post-op appointment I explained it is important to have this side treated soon to preserve any remaining muscle function, but we should allow enough time between procedures, ~3 months. 5. Bilateral hand stiffness With bilateral flexion contractures of all PIP joints bilaterally Ranging from ~10-25 degrees I demonstrated ROM exercises today in clinic He will work on ROM exercises at home, without use of his squeeze ball I ordered OT hand therapy to work on ROM and normalizing hand function 6. Bilateral hand dryness He says he moisturizes frequently I encouraged him to speak with a pharmacist about any recommended products he can use that are more effective Scribed for Moriah Mazariegos MD by Benigno Elena, biomedical engineering technician, on 09/03/23 at 9:05 AM, EST. Orders: Orders OT Evaluation and Treatment Today M25.649 - Stiffness of unspecified hand, not elsewhere classified Coding Level of Care Code New Pt Level 4 (70139) Diagnoses Carpal tunnel syndrome on both sides G56.03 Cubital tunnel syndrome, bilateral G56.23 History of stroke Z86.73 Type 2 diabetes, controlled, with neuropathy E11.40 History of hepatitis C Z86.19 Stiffness of hand joint M25.649
== END 2023-09-03 09:28 | disposition home or self-care (01) ==
PROVIDERS: PCP Family Medicine; Visit Provider Orthopaedic Surgery
DX: G56.03 Carpal tunnel syndrome, bilateral upper limbs (principal); G56.23 Lesion of ulnar nerve, bilateral upper limbs; Z86.73 Personal history of transient ischemic attack (TIA), and cerebral infarction without residual deficits; E11.40 Type 2 diabetes mellitus with diabetic neuropathy, unspecified; Z86.19 Personal history of other infectious and parasitic diseases; M25.649 Stiffness of unspecified hand, not elsewhere classified
CPT/HCPCS: 99214

== ENCOUNTER → 2023-09-03 08:33 | Outpatient (BNVA) | payer OTHER, SELFPAY | PROVIDERS: PCP Family Medicine; Visit Provider Orthopaedic Surgery | DX: G56.03 Carpal tunnel syndrome, bilateral upper limbs (principal); G56.23 Lesion of ulnar nerve, bilateral upper limbs; E11.40 Type 2 diabetes mellitus with diabetic neuropathy, unspecified; M25.649 Stiffness of unspecified hand, not elsewhere classified; Z86.73 Personal history of transient ischemic attack (TIA), and cerebral infarction without residual deficits; Z86.19 Personal history of other infectious and parasitic diseases | CPT/HCPCS: 99212 ==

== ENCOUNTER 2023-09-09 08:46 | Outpatient (AMB) | payer OTHER, SELFPAY ==
--- NOTE | 2023-09-09 08:58 | A.OFFPC_ITS ---
Vital Signs 09/09/23 09:01 Height 6 ft 6 in Weight 178 lb 4 oz BMI 20.6 BP 122/72 Blood Pressure Location Lt brachial Position Sitting Pulse 74 Pulse Source Pulse Oximeter Pulse Oximetry (%) 97 Oxygen Delivery Method Room Air Intake Visit Reasons: pre op [facility] Orth[facility] Intake Note: Patient is here for preop for orthopedic appointment. Allergies aspirin [ASPIRIN] Allergy (Unknown, Verified 09/09/23 09:02) ITCH Sinus Allergy (Unknown, Uncoded 09/09/23 09:02) unknown Tobacco use date assessed: 09/09/23 Dental Screening Dental Screen Date: 09/09/23 Did you have a dental visit in the last 12 months?: Yes Did you have a dental problem in the last 6 months where you did not have access to dental care?: No Was dental information given to patient?: Patient has dentist HPI pre op [facility] Orthopedics HPI Details Patient?presents?for?preoperative?clearance?prior?to?R arm surgery for Carpal Tunnel and Cubital tunnel syndrome. Procedure: 1. Right carpal tunnel syndrome, under general 2. Right cubital tunnel syndrome vs transposition, under general Date: 09/30/23 Surgeon: Dr Moriah Mazariegos Anesthesia: General History?of?hepatitis?C,?diabetes,?hypertension?and?stroke. Cardiac?Hx: LVH & Atrial enlargement seen on 2021 EKG. Pulmonary?Hx: None Prior?Surgical?Complications: None Prior?Anesthesia?Complications: None Coag?Issues: None Functional?[place]: Able to walk two city blocks and climb multiple flight of stairs. [facility] Medical History History of stroke Degenerative joint disease of hand Carpal tunnel syndrome on both sides Asthma Intracranial hemorrhage Diabetes mellitus HTN (hypertension) Surgical History History of gallstones History of tonsillectomy History of colonoscopy Family History Father HTN (hypertension) CVD (cardiovascular disease) Diabetes mellitus Mother HTN (hypertension) CVD (cardiovascular disease) Diabetes mellitus Sister No problems noted. Sister No problems noted. Sister Breast cancer Son No problems noted. Social History Household Members: Spouse Housing: Apartment Are you a primary patient care associate to a significant other at home: No Do you presently have visiting nurse or other home services: No 75 years or older and lives alone: No Alcohol intake: current Alcohol intake frequency: holidays/special occasions only Patient Tobacco Use Status: Former Tobacco user Tobacco use type: Cigarette Cigarettes Per Day: 10 Years Smoked: 2 e-Cigarette/Vaping Use: Never Used Second Hand Smoke Exposure: No Special florencia needs: No Agree to transfusion: Yes service: No 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al status: disabled 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 1. Little interest or pleasure in doing things: not at all 2. Feeling down, depressed, or hopeless: not at all 3. Trouble falling or staying asleep, or sleeping too much: not at all 4. Feeling tired or having little energy: not at all 5. Poor appetite or overeating: not at all 6. Feeling bad about yourself - or that you are a failure or have let yourself or your family down: not at all 7. Trouble concentrating on things, such as reading the newspaper or watching television: not at all 8. Moving or speaking so slowly that other people could have noticed. Or the opposite - being so fidgety or restless that you have been moving around a lot more than usual: not at all 9. Thoughts that you would be better off or of hurting yourself in some way: not at all Total score: 0 Source: Developed by Drs. Erik Napoles, Genie Hernandez, Stew Edge and colleagues, with an educational sami from [employer]. Thrive Questionnaire Date Thrive assessed: 09/09/23 I am a: Patient What is your living situation today?: I have a steady place to live Within the past 12 months, did the food you bought not last and you didn't have the money to get more?: Often true Within the past 12 months, did you worry whether your food would run out before you got money to buy more?: Often true Do you have trouble paying for medicines?: No Do you have trouble getting transportation to medical appointments?: No Do you have trouble paying your heating and electricity bill?: No Do you have trouble taking care of your child, family member or friend?: No Do you have trouble with day-to-day activities such as bathing, preparing meals, shopping, managing finances, etc.?: No Are you currently unemployed and looking for a job?: No Are you interested in more education?: No THRIVE Score: 2 AUDIT C Alcohol Use Questionnaire (AUDIT-C) 1. How often do you have a drink containing alcohol?: Monthly or less 2. How many drinks containing alcohol do you have on a typical day when you are drinking?: 1 or 2 3. How often do you have six or more drinks on one occasion?: Never Total Score: 1 RIKI-7 AMB Questionnaire RIKI-7 Date RIKI - 7 assessed: 09/09/23 Feeling nervous, anxious, or on edge: 0 = Not at all Not being able to stop or control worryin = Not at all Worrying too much about different things: 0 = Not at all Trouble relaxin = Not at all Being so restless that it is hard to sit still: 0 = Not at all Becoming easily annoyed or irritable: 0 = Not at all Feeling afraid as if something awful might happen: 0 = Not at all Total RIKI-7 score (0-4 normal; 5-9 mild; 10-14 moderate; 15-21 severe): 0 Source: Developed by Drs. Erik Napoles, Genie Hernandez, Stew Edge and colleagues, with an educational sami from [employer]. Review of Systems Const Denies chills, Denies fatigue, Denies fever(s), Denies headache(s) and Denies weakness ENT Denies dizziness and Denies headache(s) Card Denies chest pain, Denies lightheadedness, Denies dyspnea and Denies other (Palpitations) Resp Denies cough, Denies dyspnea, Denies wheezing and Denies other ( shortness of breath) Musc Denies numbness and Denies tingling Neuro Denies dizziness, Denies headache(s), Denies numbness, Denies tingling, Denies paresthesias and Denies weakness Psych Denies anxiety and Denies depression Endo Denies fatigue Aller/Immun Denies wheezing Physical exam (Primary Care) Vital Signs: Last Vital Signs Pulse 74 09/09/23 09:01 BP 122/72 09/09/23 09:01 Pulse Ox 97 09/09/23 09:01 Oxygen Delivery Method Room Air 09/09/23 09:01 BMI result Body Mass Index 20.6 Tobacco/Smoking Status: Tobacco use Status Tobacco use date assessed 09/09/23 09/09/23 09:04 Patient Tobacco Use Status Former Tobacco user 09/09/23 08:59 Tobacco use type Cigarette 09/09/23 08:59 e-Cigarette/Vaping Use Never Used 09/09/23 08:59 PHQ-9: PHQ-9 Score PHQ-9: Total score 0 09/09/23 09:18 Thrive Assessment: Date of Thrive Assessment Date Thrive assessed 09/09/23 09/09/23 09:06 Const General: no acute distress and well developed Nutritional Appearance: well nourished Orientation/consciousness: patient oriented x3 HENMT Head: Yes normocephalic and Yes atraumatic Eyes General: appearance normal, both eyes and all related structures Pupils: Equal, round and reactive pupils present EOM: EOMs intact bilaterally Resp Effort & Inspection: normal respiratory effort Auscultation: clear to auscultation bilaterally Cardio Rate: regular rate Rhythm: regular rhythm Heart sounds: S1 normal heart sound present, S2 normal heart sound present, no gallops, no murmurs and no rubs Neuro General: patient oriented x3 and gait normal Cranial nerves: Yes Equal, round and reactive pupils present Psych Affect: normal affect Results AMB Hemoglobin A1c AMB Hemoglobin A1c 6.0 % Last Edit by Jessica Gasca CMA on 09/09/23 09:21 Assessment and Plan Assessment & Plan (1) Pre-operative clearance: Code(s): Z01.818 - Encounter for other preprocedural examination Plan: 63-year-old?male?with?History?of?hepatitis?C,?diabetes,?hypertension?and?stroke, presents?for?preoperative?clearance?prior?to?ca rpal?tunnel?and?cubital?tunnel?surgeries of?right?upper?extremity. Blood?pressure?and?A1c?show?good?control?of?hypertension?and?diabetes. History?of?L TIA/stroke and?intracranial?hemorrhage?w/ R sided weakness, resolved. Pt declined further treatment at that time. History?of?LVH?and?atrial?enlargement?likely?secondary?to?poorly?controlled?hype rtension?at?the?time.??Blood?pressure?now?well?controlled. EKG?today: ?Normal?sinus?rhythm,?normal?axis,?normal?intervals,?no?hypertrophy,?no?ST-T-wav e?changes. Cardiac?exam?normal?by?auscultation?today. No?prior?pulmonary?disease?and?pulmonary?auscultation?normal. He?does?not?smoke. No?prior?complications?with?surgeries?or?anesthesia. No?known?coagulopathies. Patient?has?had?a?hemorrhagic?stroke/TIA.??He?is?not?on?any?anticoagulants. He?is?not?on?a?statin. Intermediate?risk?patient?for?intermediate?risk?procedure. Patient?is?optimized. No?contraindications?to?proceeding?with?proposed?procedure. Orders: Orders AMB Hemoglobin A1c Today Z13.9 - Encounter for screening, unspecified Complete Blood Count Auto Diff Today Z00.00 - Encounter for general adult medical examination without abnormal findings, Z01.818 - Encounter for other preprocedural examination Comprehensive Met. Panel Today Z01.818 - Encounter for other preprocedural examination Prothrombin Time INR Today Z01.818 - Encounter for other preprocedural examination Partial Thromboplastin Time Today Z01.818 - Encounter for other preprocedural examination Coding Level of Care Code Est Pt Level 3 (98201) Diagnoses Pre-operative clearance Z01.818
[2023-09-09 09:01] VITALS: BP 122/72; PULSE 74; O2SAT 97; BMI 20.6
== END 2023-09-09 10:14 | disposition home or self-care (01) ==
PROVIDERS: PCP Family Medicine; Visit Provider Family Medicine
DX: E11.9 Type 2 diabetes mellitus without complications (principal); Z01.818 Encounter for other preprocedural examination
CPT/HCPCS: 83036; 99213

== ENCOUNTER 2023-09-09 09:56 | Outpatient (REF) | payer OTHER, SELFPAY ==
[2023-09-09 11:37] LABS: MANUAL DIFF FLAG NO
[2023-09-09 11:51] LABS: Basophils Percent Auto 0.3 % (0-2); Eosinophils Absolute Auto 0.2 X10*3/uL (0.0-0.4); Eosinophils Percent Auto 2.2 % (0-4); Imm Gran Abs Auto 0.03 X10*3/uL (0.00-0.03); Imm Gran Pct Auto 0.3 % (0.0-0.4); Lymphocytes Absolute Auto 3.4 X10*3/uL (1.2-4.9); Lymphocytes Percent Auto 39.2 % (20-40); Mean Corpuscular HGB Conc 33.3 g/dl (31.0-36.0); Mean Corpuscular Hemoglobin 30.2 pg (27.0-33.0); Mean Corpuscular Volume 90.7 fL (80.0-98.0); Mean Platelet Volume 9.8 fL (9.4-12.4); Monocytes Absolute Auto 0.9 X10*3/uL (0.1-1.2); Monocytes Percent Auto 10.4 % (2-11); Neutrophils Absolute Auto 4.2 x10*3/uL (2.0-8.3); Neutrophils Percent Auto 47.6 % (45-73); Platelet Count 224 X10*3/uL (160-400); Red Blood Count 4.96 X10*6/uL (4.60-5.80); Red Cell Distribution Width 12.8 % (11.0-16.0); White Blood Count 8.7 X10*3/uL (4.8-10.8)
[2023-09-09 11:56] LABS: Prothrombin Time 12.1 SEC (11.1-13.3)
[2023-09-09 11:58] LABS: Partial Thromboplastin Time 38.9 SEC (26.0-36.8)
[2023-09-09 12:23] LABS: Alanine Aminotransferase 23 U/L (0-40); Albumin Level 4.3 g/dL (3.5-5.0); Alkaline Phosphatase 74 U/L (39-117); Anion Gap 13 (12-20); Aspartate Amino Transferase 21 U/L (5-37); Bilirubin Total 0.4 mg/dL (0.0-1.0); Blood Urea Nitrogen 28 mg/dL (9-16); Calcium 9.9 mg/dL (8.4-10.2); Carbon Dioxide 29 mmol/L (22-29); Chloride 103 mmol/L (96-108); Estimated Glomerular Filt Rate > 60; Glucose Random 130 mg/dL (60-115); Potassium 3.8 mmol/L (3.3-5.1); Sodium 141 mmol/L (135-145); Total Protein 8.3 g/dL (6.5-8.0)
== END 2023-09-09 09:57 | disposition home or self-care (01) ==
LOC: HO.WFDLDS 09:56
PROVIDERS: Visit Provider Family Medicine
DX: Z00.00 Encounter for general adult medical examination without abnormal findings (principal)
CPT/HCPCS: 36415; 80053; 85025; 85610; 85730

== ENCOUNTER 2023-09-12 09:50 | Outpatient (RCR) | payer OTHER, SELFPAY ==
--- NOTE | 2023-10-01 11:26 | MHC.OT.DC ---
[address] [phone] F: [phone] Occupational Therapy Discharge Note Patient Name: Arvind Ramos Provider: Moriah Mazariegos MD Diagnosis: Hand stiffness bilateral hands Date of Evaluation: 09/12/23 Date of Discharge: 10/01/23 Treatments to Date: 1 Cancellations to Date: 1 No Shows to Date: 4 Discharge Status: Visit Non-compliance Discharge Summary: Arvind was seen for initial OT assessment and scheduled for course of OT, but has yet to show for follow up appointments. We will be discharging at this time due to visit non-compliance policy. Electronically Signed By: EARNESTINE Dorsey/Sandra CHT Reviewed/agree with student documentation: Therapist: Please Sign and return to therapist, thank you for your referral.
== END 2023-10-01 11:27 | disposition home or self-care (01) ==
LOC: HO.OT 09:50
PROVIDERS: PCP Family Medicine; Visit Provider Orthopaedic Surgery
DX: M25.641 Stiffness of right hand, not elsewhere classified (principal); M25.642 Stiffness of left hand, not elsewhere classified
CPT/HCPCS: 97110; 97167

== ENCOUNTER 2023-09-24 12:07 | Outpatient (AMB) | payer OTHER, SELFPAY ==
[2023-09-24 12:21] VITALS: BMI 20.6
--- NOTE | 2023-09-24 12:21 | MHC.OFFVIS ---
Intake Vital Signs 09/24/23 12:21 Height 6 ft 6 in Weight 178 lb BMI 20.6 Intake Visit Reasons: Pre-op LT CTR & Cub tunn 09/29 Intake Note: Arvind 63 yr old male presents today for his Pre op visit for his Left CTR and cubital tunnel release with Dr. Mazariegos on 09/30/23. STates he would like to have his left hand done first since he is right hand dominant. Allergies aspirin [ASPIRIN] Allergy (Unknown, Verified 09/24/23 12:34) ITCH Sinus Allergy (Unknown, Uncoded 09/24/23 12:34) unknown HPI Pre-op LT CTR & Cub tunn 09/29 HPI Details Arvind is a 63 year old right hand dominant Diabetic man who presents for to discuss treatment for his bilateral carpal & cubital tunnel syndrome. He has a history of a stroke in ~2020, left hemiparesis, still with residuals. (Dr. Allen note from 06/06/23). He continues to have dense numbness to the tips of all digits, bilaterally, R>L. He has a hx of Hepatitis C, which has been treated, & DM, his most recent HgA1c was 5.6% on 05/21/23. He is out of work on disability He would like to change from starting with the right hand to having surgery 1st on the left-hand [facility] Medical History History of stroke Degenerative joint disease of hand Carpal tunnel syndrome on both sides Asthma Intracranial hemorrhage Diabetes mellitus HTN (hypertension) Surgical History History of gallstones History of tonsillectomy History of colonoscopy Family History Father HTN (hypertension) CVD (cardiovascular disease) Diabetes mellitus Mother HTN (hypertension) CVD (cardiovascular disease) Diabetes mellitus Sister No problems noted. Sister No problems noted. Sister Breast cancer Son No problems noted. Social History Household Members: Spouse Housing: Apartment Are you a primary critical care transport nurse to a significant other at home: No Do you presently have visiting nurse or other home services: No 75 years or older and lives alone: No Alcohol intake: current Alcohol intake frequency: holidays/special occasions only Patient Tobacco Use Status: Former Tobacco user Tobacco use type: Cigarette Cigarettes Per Day: 10 Years Smoked: 2 e-Cigarette/Vaping Use: Never Used Second Hand Smoke Exposure: No Special florencia needs: No Agree to transfusion: Yes service: No 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al status: disabled 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al exposures/hazards: No Sexual orientation: Straight/Heterosexual Gender identity: Male Cognitive needs: No Hearing needs: No Vision needs: No Physical Exam Vital Signs: BMI result Body Mass Index 20.6 Extrem Other: Evaluation of Bilateral Upper Extremity: The patient is alert, oriented, and in no acute distress Neuro: Regarding the left hand: Dense numbness to the tips of all digits Severe intrinsic wasting, no thenar wasting Good APB muscle belly firing Weak ABduction and ADduction of fingers, but can do this Regarding the right hand: Dense numbness in the median nerve distribution Diminished & not normal sensation in the ulnar nerve distribution Not as much intrinsic wasting Good APB muscle belly firing Vascular: Cap refill brisk ROM: Not checked today Skin very dry bilaterally Healing scrapes on dorsal aspects of fingers from working on his car Nerve Conduction Study: IMPRESSION: 1. This is an abnormal study. 2. There is electrodiagnostic evidence for bilateral moderate-severe median neuropathy at the wrist, consistent with carpal tunnel syndrome. 3. There is electrodiagnostic evidence for bilateral ulnar neuropathy at the elbow. 4. There is no electrodiagnostic evidence for brachial plexopathy, or cervical radiculopathy. Thank you for your kind referral. Leigh Marte MD, JOSIAH 07/19/23 Assessment & Plan Assessment & Plan (1) Carpal tunnel syndrome on both sides: Code(s): G56.03 - Carpal tunnel syndrome, bilateral upper limbs (2) Cubital tunnel syndrome, bilateral: Code(s): G56.23 - Lesion of ulnar nerve, bilateral upper limbs (3) History of stroke: Code(s): Z86.73 - Personal history of transient ischemic attack (TIA), and cerebral infarction without residual deficits (4) Type 2 diabetes, controlled, with neuropathy: Code(s): E11.40 - Type 2 diabetes mellitus with diabetic neuropathy, unspecified (5) History of hepatitis C: Code(s): Z86.19 - Personal history of other infectious and parasitic diseases (6) Stiffness of hand joint: Code(s): M25.649 - Stiffness of unspecified hand, not elsewhere classified Plan Assessment & Plan: 1. Left Carpal tunnel syndrome, moderate-severe With dense numbness 2. Left cubital tunnel syndrome, Not normal sensation today in clinic I educated him about this condition I discussed operative and non-operative treatment options The patient would like to proceed with surgery, beginning with the right side as this is his dominant hand and it is important to preserve muscle function The risks and benefits of operative treatment were discussed with the patient and the patient wishes to proceed with surgery. These risks include, but are not limited to risk of damage to blood vessels, nerves, tendons, infection, recurrence, incomplete relief of preoperative symptoms, persistent pain, possible need for further surgery and the risks associated with regional blocks and anesthesia. The plan is to take the patient to the operating room sometime on 09/30/23 for the following procedures: 1. Left carpal tunnel syndrome, under general 2. Left cubital tunnel syndrome vs transposition, under general All of the preoperative paperwork including the consent was reviewed today. All the patient's questions were answered. He denies blood thinners, asthma, heart, lung, kidney issues He has a hx of stroke in 2020, he denies any blood thinners. He has received PCP clearance He is a Diabetic, his most recent HgA1c was 6.0% on 09/09/23 He has a hx of Hepatitis C, which has been successfully treated We had set him up for surgery on the right side. The patient has requested that we change to starting with the left side. I also spoke with our director of surgery about the fact that we are changing to the left side. 3. Right Carpal tunnel syndrome, moderate-severe With dense numbness 4.Right cubital tunnel syndrome With dense numbness Severe intrinsic wasting We can discuss treatment for this at his first post-op appointment I explained it is important to have this side treated soon to preserve any remaining muscle function, but we should allow enough time between procedures, ~3 months. 5. Bilateral hand stiffness With bilateral flexion contractures of all PIP joints bilaterally Ranging from ~10-25 degrees He will work on ROM exercises at home, without use of his squeeze ball He will continue to attend OT hand therapy to work on ROM and normalizing hand function 6. Bilateral hand dryness He says he moisturizes frequently I encouraged him to speak with a pharmacist about any recommended products he can use that are more effective Scribed for Moriah Mazariegos MD by Benigno Elena, biomedical equipment specialist, on 09/24/23 at 12:40 PM, EST. Coding Level of Care Code Est Pt Level 4 (16280) Diagnoses Carpal tunnel syndrome on both sides G56.03 Cubital tunnel syndrome, bilateral G56.23 History of stroke Z86.73 Type 2 diabetes, controlled, with neuropathy E11.40 History of hepatitis C Z86.19 Stiffness of hand joint M25.649
== END 2023-09-24 12:47 | disposition home or self-care (01) ==
PROVIDERS: PCP Family Medicine; Visit Provider Orthopaedic Surgery
DX: G56.03 Carpal tunnel syndrome, bilateral upper limbs (principal); G56.23 Lesion of ulnar nerve, bilateral upper limbs; Z86.73 Personal history of transient ischemic attack (TIA), and cerebral infarction without residual deficits; E11.40 Type 2 diabetes mellitus with diabetic neuropathy, unspecified; Z86.19 Personal history of other infectious and parasitic diseases; M25.649 Stiffness of unspecified hand, not elsewhere classified
CPT/HCPCS: 99214

== ENCOUNTER → 2023-09-24 12:07 | Outpatient (BNVA) | payer OTHER, SELFPAY | PROVIDERS: PCP Family Medicine; Visit Provider Orthopaedic Surgery | DX: Z01.818 Encounter for other preprocedural examination (principal); G56.03 Carpal tunnel syndrome, bilateral upper limbs; G56.23 Lesion of ulnar nerve, bilateral upper limbs; M25.642 Stiffness of left hand, not elsewhere classified; M25.641 Stiffness of right hand, not elsewhere classified; I69.354 Hemiplegia and hemiparesis following cerebral infarction affecting left non-dominant side; E11.40 Type 2 diabetes mellitus with diabetic neuropathy, unspecified; Z86.19 Personal history of other infectious and parasitic diseases | CPT/HCPCS: 99212 ==

== ENCOUNTER 2023-09-30 05:58 | Day surgery (SDC) | payer OTHER, SELFPAY ==
[2023-09-26 10:37] VITALS: BMI 20.6
--- NOTE | 2023-09-26 14:18 | P.CONAN_ITS ---
Documented by User: Taya Lopez NP 09/26/23 14:21 HPI - Anesthesia Eval Consult details Narrative: 63yo M for Left Cubital Tunnel Release, Carpal Tunnel Release Medically optimized REPLACED BY [facility] Active Problems Active Problems: All Active Problems (Updated 09/26/23 @ 10:34 by Shilpa Lee RN) Pre-operative clearance (Acute) Stiffness of hand joint (Acute) History of hepatitis C (Acute) Cubital tunnel syndrome, bilateral (Acute) Ulnar neuropathy at elbow (Acute) Wound of skin (Acute) Elevated serum creatinine (Acute) Uncontrolled diabetes mellitus with hyperglycemia (Acute) Hepatitis C (Acute) Rectal pain (Acute) Anxiety and depression (Acute) Insomnia (Acute) Furuncle (Acute) Liver disease (Acute) Type 2 diabetes, controlled, with neuropathy (Acute) Immunization counseling (Acute) Hypoglycemia (Acute) Dysuria (Acute) Allergies (Acute) Abdominal pain (Acute) Elevated liver enzymes (Acute) Screening for colon cancer (Acute) Screening for prostate cancer (Acute) Adult general medical exam (Acute) Sinusitis (Acute) Laboratory examination ordered as part of a routine general medical examination (Acute) Dermatitis (Acute) Essential hypertension (Acute) Diabetes mellitus (Acute) History of stroke (Acute) Degenerative joint disease of hand (Acute) Carpal tunnel syndrome on both sides (Acute) Past Medical History Medical History Elevated cholesterol Anxiety and depression Hepatitis C History of stroke Degenerative joint disease of hand Carpal tunnel syndrome on both sides Asthma Intracranial hemorrhage Diabetes mellitus HTN (hypertension) Family History Family History Father HTN (hypertension) CVD (cardiovascular disease) Diabetes mellitus Mother HTN (hypertension) CVD (cardiovascular disease) Diabetes mellitus Sister No problems noted. Sister No problems noted. Sister Breast cancer Son No problems noted. Surgical History Surgical History Hx of cystoscopy Hx of cystoscopy History of esophagogastroduodenoscopy (EGD) Hx of cholecystectomy History of tonsillectomy History of colonoscopy Social History Social History Household Members: Spouse Housing: Apartment Are you a primary housekeeper caregiver to a significant other at home: No Do you presently have visiting nurse or other home services: No Alcohol intake: current Alcohol intake frequency: holidays/special occasions only Patient Tobacco Use Status: Former Tobacco user Tobacco use type: Cigarette Cigarettes Per Day: 10 Years Smoked: 2 e-Cigarette/Vaping Use: Never Used Second Hand Smoke Exposure: No Use of substances other than those prescribed or required for medical reasons: No Special florencia needs: No Agree to transfusion: Yes Are you DNR?: No Advance Directives: No Advance Directives Information Provided: Yes service: No 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al status: disabled 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al exposures/hazards: No Sexual orientation: Straight/Heterosexual Gender identity: Male Cognitive needs: No Hearing needs: No Vision needs: No Meds Allergies Allergy/AdvReac Type Severity Reaction Status Date / Time aspirin [ASPIRIN] Allergy Intermediate ITCH Verified 09/26/23 10:25 Exam Height,Weight and Vital Signs: Height 6 ft 6 in Weight 80.739 kg Pertinent Lab Results Pertinent Lab Results: Laboratory Tests 09/09/23 09:57 WBC 8.7 Hgb 15.0 Hct 45.0 Plt Count 224 D Sodium 141 Potassium 3.8 Chloride 103 Carbon Dioxide 29 BUN 28 H Creatinine 1.10 Laboratory Tests 09/09/23 09:57 PT 12.1 INR 1.0 APTT 38.9 H Laboratory Tests 09/09/23 09:20 Hgb A1c (Clinic) 6.0 Narrative Narrative: EKG 09/2023 NSR @ 78 Airway Adult Head Mouth w/Numbe Teeth: 2 1. Loose tooth 2. Assessment and Plan Assessment Anesthesia Assessment: Chart Reviewed Documented by User: Lauren Mcdowell MD 09/30/23 07:19 REPLACED BY [facility] Past Medical History Medical History Elevated cholesterol Anxiety and depression Hepatitis C History of stroke Degenerative joint disease of hand Carpal tunnel syndrome on both sides Asthma Intracranial hemorrhage Diabetes mellitus HTN (hypertension) Family History Family History Father HTN (hypertension) CVD (cardiovascular disease) Diabetes mellitus Mother HTN (hypertension) CVD (cardiovascular disease) Diabetes mellitus Sister No problems noted. Sister No problems noted. Sister Breast cancer Son No problems noted. Family history of problems with anesthesia: No Surgical History Surgical History Hx of cystoscopy Hx of cystoscopy History of esophagogastroduodenoscopy (EGD) Hx of cholecystectomy History of tonsillectomy History of colonoscopy History of Problems with Anesthesia: No Social History Social History Household Members: Spouse Housing: Apartment Are you a primary housekeeper caregiver to a significant other at home: No Do you presently have visiting nurse or other home services: No Alcohol intake: current Alcohol intake frequency: holidays/special occasions only Patient Tobacco Use Status: Former Tobacco user Tobacco use type: Cigarette Cigarettes Per Day: 10 Years Smoked: 2 e-Cigarette/Vaping Use: Never Used Second Hand Smoke Exposure: No Use of substances other than those prescribed or required for medical reasons: No Special florencia needs: No Agree to transfusion: Yes Are you DNR?: No Advance Directives: No Advance Directives Information Provided: Yes service: No 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al status: disabled 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 Loose tooth 2. Heart: rrr Lungs: cta Assessment and Plan Assessment Anesthesia Assessment: Anesthesia Plan Discussed Final Anesthetic Review Family History of Problems with Anesthesia: No History of Problems with Anesthesia: No NPO: Yes ASA Class: III Final Preanesthetic Review: No Changes in Pt Med Stat, Meds/Allgs Chart Reviewed and Consent Obtained/Reviewed Patient Risk: Intermediate Procedure Risk: Low Anesthetic Plan Anesthetic Plan: GA Disposition: Standard PACU
[2023-09-30 06:16] VITALS: BMI 22.2
[2023-09-30 06:26] LABS: Glucose, Whole Blood 116 mg/dL (60-115)
[2023-09-30 06:38] VITALS: BP 150/74; PULSE 69; RESP 16; TEMP 36.6; O2SAT 99
[2023-09-30] MEDS: Lactated Ringers 1,000 ML 100 ML IVCONT (06:50)
--- NOTE | 2023-09-30 07:43 | MHC.SHP ---
Pre-Procedural Eval Section A - 24 Hr Update-Section A only Date of Service: 09/30/23 The patient is an INPATIENT: No Changes since office visit: No Cold of Flu in the past 2 weeks, No New Medical Problems, No Changes in Medication and No Patient answered all questions The patient has been examined within 24 hours of the surgical procedure. The History & Physical has been completed within 30 days and I have reviewed it.: Yes Section B - Complete if H&P > 30 days Chief Complaint: Lesion of ulnar nerve, right,carpal tunnel release Allergies: Allergies Allergy/AdvReac Type Severity Reaction Status Date / Time aspirin [ASPIRIN] Allergy Intermediate ITCH Verified 09/26/23 10:25 Plan I have reviewed the history and physical and performed a pertinent physical examination on my patient. No changes have occurred unless specified. Time Spent With Patient Time: Total time managing care of this patient today ____ minutes.
--- NOTE | 2023-09-30 07:43 | W.PM.OPN ---
Operative Note Operative Note Date of Service: 09/30/23 Narrative: Operative Note Narrative: Preop diagnosis: 1. Left Cubital tunnel syndrome 2. Left carpal tunnel syndrome Postop diagnosis: Same Procedure: 1. Left Cubital Tunnel Release 2. Left carpal tunnel release Surgeon: Moriah Mazariegos MD Anesthesia: General Anesthesia Findings: Thickening and fibrosis about the ulnar nerve at the cubital tunnel, with a narrowing of the ulnar nerve in the distal aspect of the cubital tunnel. Implants: none Tourniquet time: 38 minutes EBL: 5.0 ml Specimen: none Drains: None Complications: None Disposition: Brought to the recovery room in stable condition Plan: Follow-up in 10-14 days for wound check, and suture removal Indications: The patient is 63 years old with left cubital tunnel syndrome and left carpal tunnel syndrome . The risks and benefits of operative treatment, including but not limited to risk of damage to blood vessels, nerves, tendons, infection, recurrence, persistent pain or numbness, incomplete resolution of preoperative symptoms, or need for further surgery were discussed with the patient and they wished to proceed with surgery. Procedure: Once consent was obtained patient was brought back to the operating suite and placed in the operating table in a supine position. Perioperative antibiotics and anesthesia was administered by the anesthesia team. The limb was prepped and draped in a standard surgical fashion, and a sterile tourniquet applied to the proximal aspect of the left upper extremity. The limb was elevated exsanguinated with Esmarch bandage and the tourniquet inflated to 250 mm of mercury for a total tourniquet time of 38 minutes. Once assured that we had a good block, a 2.0 cm longitudinal incision was made centered over the left carpal tunnel. The incision was made through the skin to the subcutaneous tissues using a #15 blade. Dissection was made down to the level of the transverse carpal ligament with care being taken to protect the palmar cutaneous nerve. Once the transverse carpal ligament was clearly visualized, a longitudinal incision was made in the transverse carpal ligament 1st using a #15 blade, then using tenotomy scissors under direct visualization. Care was taken to look for and protect the motor branch of the median nerve when seen in this area. Once satisfied with our carpal tunnel release the wound was irrigated with normal saline. A 6 cm gently curved but longitudinally oriented incision was made centered over the cubital tunnel of the left upper extremity. Incision was made through the skin to the subcutaneous tissues using a # 15 Blade. I then dissected down to the level of the medial epicondyle and the cubital tunnel using tenotomy scissors. Care was taken to protect the lateral antebrachial cutaneous nerve. The ulnar nerve was identified just posterior to the medial intermuscular septum. The ulnar nerve was released in a proximal to distal direction using tenotomy in iris scissors while directly visualizing and protecting the ulnar nerve. Thickening and fibrosis was appreciated about the ulnar nerve as it passed through the cubital tunnel. The ulnar nerve was assessed as I passed the elbow through full flexion and extension and was found to remain stable within its groove. At this point the tourniquet was deflated and hemostasis obtained with a brief period of local pressure and bipolar electrocautery. The wound was copiously irrigated with normal saline. The subcutaneous layer was closed with 4-0 Vicryl suture, and the skin edges were reapproximated with 5-0 nylon suture. The wound was infiltrated with some 0.25% plain Marcaine for postop pain control and a sterile dressings was applied. The patient appears to have tolerated the procedure well and with no complications. All digits were well vascularized conclusion of the case.
[2023-09-30 09:39] VITALS: BP 149/85; PULSE 94; RESP 14; TEMP 36.4; O2SAT 98
[2023-09-30 09:44] VITALS: BP 157/88; PULSE 92; RESP 16; O2SAT 99
[2023-09-30 09:49] VITALS: BP 151/89; PULSE 89; RESP 16; O2SAT 99
[2023-09-30] MEDS: Ketorolac Tromethamine 30 MG/ML VIAL 15 MG IVPUSH (09:49)
[2023-09-30 09:50] LABS: Glucose, Whole Blood 163 mg/dL (60-115)
[2023-09-30 09:57] VITALS: BP 157/92; PULSE 87; RESP 16; O2SAT 99
[2023-09-30 10:12] VITALS: BP 158/94; PULSE 81; RESP 16; TEMP 36.6; O2SAT 98
== END 2023-09-30 11:15 | disposition home or self-care (01) ==
PROVIDERS: PCP Family Medicine; Visit Provider Orthopaedic Surgery
PROC: (CPT 64718; principal; 2023-09-30 07:30)
PROC: (CPT 64721; 2023-09-30 07:30)
DX: G56.02 Carpal tunnel syndrome, left upper limb (principal); G56.22 Lesion of ulnar nerve, left upper limb; R20.0 Anesthesia of skin; I69.354 Hemiplegia and hemiparesis following cerebral infarction affecting left non-dominant side; I10 Essential (primary) hypertension; E11.40 Type 2 diabetes mellitus with diabetic neuropathy, unspecified; J45.909 Unspecified asthma, uncomplicated; Z86.19 Personal history of other infectious and parasitic diseases; Z87.891 Personal history of nicotine dependence; Z88.8 Allergy status to other drugs, medicaments and biological substances; M25.642 Stiffness of left hand, not elsewhere classified; Z98.890 Other specified postprocedural states
CPT/HCPCS: 64721; 64718; 82947; J0690; J1100; J1885; J2250; J2405; J2704; J2795; J3010

== ENCOUNTER → 2023-09-30 05:58 | Outpatient (BNV) | payer OTHER, SELFPAY | PROVIDERS: PCP Family Medicine; Visit Provider Orthopaedic Surgery | DX: G56.22 Lesion of ulnar nerve, left upper limb (principal); G56.02 Carpal tunnel syndrome, left upper limb | CPT/HCPCS: 64718; 64721 ==

== ENCOUNTER 2023-10-15 12:44 | Outpatient (AMB) | payer OTHER, SELFPAY ==
--- NOTE | 2023-10-15 12:51 | MHC.OFFVIS ---
Intake Intake Visit Reasons: PO LT CTR and cub tunn 09/30/23 AR Intake Note: Arvind 63 yr old male presents today for his PO visit for his left CTR and cub tunn 09/30/23 AR. States his CTS has improved, he still a little tingling at times however he is doing well over all. Sutures removed and setri strips applied. Allergies aspirin [ASPIRIN] Allergy (Intermediate, Verified 10/15/23 13:04) ITCH HPI PO LT CTR and cub tunn 09/30/23 AR HPI Details Arvind is a 63 year old right hand dominant Diabetic man who returns S/P left carpal tunnel release & cubital tunnel release, DOS: 09/30/23. He has a history of a stroke in ~2020, left hemiparesis, still with residuals. (Dr. Allen note from 06/06/23). He says his sensation has improved somewhat in the thumb, inex, and middle fingers, but is still not normal. No change in his small finger sensation. He says he is doing well following surgery He also has numbness in all of the fingers of the right hand and is interested in talking about possible surgery for this sometime in March. He has a hx of Hepatitis C, which has been treated, & DM, his most recent HgA1c was 5.6% on 05/21/23. He is out of work on disability [facility] Medical History Elevated cholesterol Anxiety and depression Hepatitis C History of stroke Degenerative joint disease of hand Carpal tunnel syndrome on both sides Asthma Intracranial hemorrhage Diabetes mellitus HTN (hypertension) Surgical History Hx of cystoscopy Hx of cystoscopy History of esophagogastroduodenoscopy (EGD) Hx of cholecystectomy History of tonsillectomy History of colonoscopy Family History Father HTN (hypertension) CVD (cardiovascular disease) Diabetes mellitus Mother HTN (hypertension) CVD (cardiovascular disease) Diabetes mellitus Sister No problems noted. Sister No problems noted. Sister Breast cancer Son No problems noted. Social History Household Members: Spouse Housing: Apartment Are you a primary long term care administrator to a significant other at home: No Do you presently have visiting nurse or other home services: No 75 years or older and lives alone: No Alcohol intake: current Alcohol intake frequency: holidays/special occasions only Comment: counts correct Patient Tobacco Use Status: Former Tobacco user Tobacco use type: Cigarette Cigarettes Per Day: 10 Years Smoked: 2 e-Cigarette/Vaping Use: Never Used Second Hand Smoke Exposure: No Special florencia needs: No Agree to transfusion: Yes service: No 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al status: disabled 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al exposures/hazards: No Sexual orientation: Straight/Heterosexual Gender identity: Male Cognitive needs: No Hearing needs: No Vision needs: No Review of Systems Const All systems reviewed & are unremarkable except as noted in HPI and below Physical Exam Const General: no acute distress and alert Orientation/consciousness: patient oriented x3 Neuro General: patient oriented x3 Extrem Other: The patient was alert oriented and in no acute distress The incision is healing well with no erythema drainage or evidence of infection. Sutures removed and Steri-Strips applied He can make a fist and extend all his digits, with encouragement Good elbow ROM wihtout pain Cap refill is brisk Neuro: Regarding the left hand: Improved but not normal sensation in the median nerve distribution Still with dense numbness in the ulnar nerve distribution Severe intrinsic wasting, no thenar wasting Good APB muscle belly firing Weak ABduction and ADduction of fingers, but can do this Regarding the right hand: Dense numbness to the tips of all digits Not as much intrinsic wasting Good APB muscle belly firing Nerve Conduction Study: IMPRESSION: 1. This is an abnormal study. 2. There is electrodiagnostic evidence for bilateral moderate-severe median neuropathy at the wrist, consistent with carpal tunnel syndrome. 3. There is electrodiagnostic evidence for bilateral ulnar neuropathy at the elbow. 4. There is no electrodiagnostic evidence for brachial plexopathy, or cervical radiculopathy. Thank you for your kind referral. Leigh Marte MD, JOSIAH 07/19/23 Psych Appearance: grossly normal Affect: normal affect Attitude: cooperative Assessment & Plan Assessment & Plan (1) Carpal tunnel syndrome on both sides: Code(s): G56.03 - Carpal tunnel syndrome, bilateral upper limbs (2) Cubital tunnel syndrome, bilateral: Code(s): G56.23 - Lesion of ulnar nerve, bilateral upper limbs (3) History of stroke: Comment: residual left hemiparesis-not on anticoagulation Code(s): Z86.73 - Personal history of transient ischemic attack (TIA), and cerebral infarction without residual deficits (4) Type 2 diabetes, controlled, with neuropathy: Code(s): E11.40 - Type 2 diabetes mellitus with diabetic neuropathy, unspecified (5) History of hepatitis C: Code(s): Z86.19 - Personal history of other infectious and parasitic diseases (6) Stiffness of hand joint: Code(s): M25.649 - Stiffness of unspecified hand, not elsewhere classified Plan Assessment & Plan: 1. Left Carpal tunnel syndrome, S/P release, DOS: 09/30/23 Pre-operatively with dense numbness Now with imrpvoed but not normal sensation 2. Left cubital tunnel syndrome, Pre-operatively with not normal sensation Still with dense numbness that has not improved The patient appears to be doing well post-operatively I educated him about the post-operative course I discussed activity modifications, he is to lift nothing heavier than a cellphone for the next two weeks He will perform gentle ROM exercises at home He should avoid any underwater activities for the next 5 days He should gently massage about the incision site to reduce the risk of hypersensitivity 3. Right Carpal tunnel syndrome, moderate-severe With dense numbness 4.Right cubital tunnel syndrome With dense numbness Severe intrinsic wasting We can discuss treatment for this at his first post-op appointment I explained it is important to have this side treated soon to preserve any remaining muscle function, but we should allow enough time between procedures, ~3 months. He would like to have surgery sometime this March He will follow up in 3-4 months to discuss treatment for his right hand 5. Bilateral hand stiffness With bilateral flexion contractures of all PIP joints bilaterally Ranging from ~10-25 degrees He will work on ROM exercises at home, without use of his squeeze ball He will continue to attend OT hand therapy to work on ROM and normalizing hand function 6. Bilateral hand dryness He says he moisturizes frequently I encouraged him to speak with a pharmacist about any recommended products he can use that are more effective Scribed for Moriah Mazariegos MD by Benigno Elena medical research tech, on 10/15/23 at 1:20 PM, EST. Coding Level of Care Code Global (34343) Diagnoses Carpal tunnel syndrome on both sides G56.03 Cubital tunnel syndrome, bilateral G56.23 History of stroke Z86.73 Type 2 diabetes, controlled, with neuropathy E11.40 History of hepatitis C Z86.19 Stiffness of hand joint M25.649
== END 2023-10-15 13:21 | disposition home or self-care (01) ==
PROVIDERS: PCP Family Medicine; Visit Provider Orthopaedic Surgery
DX: G56.03 Carpal tunnel syndrome, bilateral upper limbs (principal); G56.23 Lesion of ulnar nerve, bilateral upper limbs; Z86.73 Personal history of transient ischemic attack (TIA), and cerebral infarction without residual deficits; E11.40 Type 2 diabetes mellitus with diabetic neuropathy, unspecified; Z86.19 Personal history of other infectious and parasitic diseases; M25.649 Stiffness of unspecified hand, not elsewhere classified
CPT/HCPCS: 99024

== ENCOUNTER → 2023-10-15 12:44 | Outpatient (BNVA) | payer OTHER, SELFPAY | PROVIDERS: PCP Family Medicine; Visit Provider Orthopaedic Surgery | DX: Z47.89 Encounter for other orthopedic aftercare (principal); G56.01 Carpal tunnel syndrome, right upper limb; G56.21 Lesion of ulnar nerve, right upper limb; E11.40 Type 2 diabetes mellitus with diabetic neuropathy, unspecified; M25.642 Stiffness of left hand, not elsewhere classified; I69.354 Hemiplegia and hemiparesis following cerebral infarction affecting left non-dominant side; Z86.19 Personal history of other infectious and parasitic diseases; Z86.69 Personal history of other diseases of the nervous system and sense organs | CPT/HCPCS: 99212 ==

== ENCOUNTER 2023-10-29 08:46 | Outpatient (REF) | payer OTHER, SELFPAY ==
[2023-10-29 09:21] LABS: Hematocrit 44.2 % (42.0-52.0); Hemoglobin 14.6 g/dl (14.0-18.0); Mean Corpuscular Hemoglobin 29.8 pg (27.0-33.0); Mean Corpuscular Volume 90.2 fL (80.0-98.0); Mean Platelet Volume 9.9 fL (9.4-12.4); Platelet Count 216 X10*3/uL (160-400); Red Cell Distribution Width 12.5 % (11.0-16.0)
[2023-10-29 09:30] LABS: Prothrombin Time 12.6 SEC (11.1-13.3)
[2023-10-29 10:20] LABS: Alanine Aminotransferase 24 U/L (0-40); Albumin Level 4.4 g/dL (3.5-5.0); Alkaline Phosphatase 74 U/L (39-117); Aspartate Amino Transferase 28 U/L (5-37); Bilirubin Direct 0.3 mg/dL (0.0-0.5); Bilirubin Total 0.7 mg/dL (0.0-1.0); Total Protein 8.6 g/dL (6.5-8.0)
[2023-10-30 19:38] LABS: HCV RNA PCR Qn <1.18 NOT DETECTED Log IU/mL (NOT DETECTED); HCV RNA PCR Qn <15 NOT DETECTED IU/mL (NOT DETECTED)
== END 2023-10-29 08:47 | disposition home or self-care (01) ==
LOC: HO.LAB 08:46
PROVIDERS: PCP Family Medicine; Visit Provider Nurse Practitioner Family
DX: R74.01 Elevation of levels of liver transaminase levels (principal); R74.8 Abnormal levels of other serum enzymes; K21.9 Gastro-esophageal reflux disease without esophagitis; B19.20 Unspecified viral hepatitis C without hepatic coma; Z86.19 Personal history of other infectious and parasitic diseases
CPT/HCPCS: 36415; 80076; 85027; 85610; 87522; 87902

== ENCOUNTER 2023-11-06 07:46 | Outpatient (AMB) | payer OTHER, SELFPAY ==
--- NOTE | 2023-11-06 07:55 | MHC.OFFVIS ---
Vital Signs 11/06/23 07:59 Height 6 ft 6 in Weight 184 lb BMI 21.3 BP 154/88 H Blood Pressure Location Lt brachial Position Sitting Pulse 84 Intake Visit Reasons: 3 month follow up Intake Note: Arvind presents in the office as a 3 month follow up. CC: He states that he is not having any concerns at this time. Allergies aspirin [ASPIRIN] Allergy (Intermediate, Verified 11/06/23 08:00) ITCH HPI HPI 3 month follow up: Details: LAST VISIT: Hepatitis C Cough GERD (gastroesophageal reflux disease) Plan Patient has liver ultrasound schedule end of this month. He will return in 3 months and we will repeat his levels. Patient will start taking pantoprazole in the morning and can continue famotidine at bedtime. Most likely his cough is related to reflux. We will restart him on PPI and see if his symptoms get better. Continue avoiding dietary triggers and late night snacking. Staying upright for minimum 3 hours after meals discussed with patient. Next visit we will discuss going for colonoscopy. Patient will be sent for upper endoscopy to rule out gastritis, duodenitis, Hartley's. Patient is agreeable to this plan and verbalizes understanding of instructions. He was given the opportunity to ask questions all questions answered. ? Thank you for allowing me to participate in his care Orders Orders Complete Blood Count no Diff 3 Months K21.9 Liver Panel 3 Months R74.01 Prothrombin Time INR 3 Months R74.8 Medications New pantoprazole take one tablet half an hour before breakfast 40 mg PO DAILY 90 tabs 2RF K21.9 Changed Changed From famotidine 20 mg PO BID Changed To famotidine 20 mg PO BEDTIME 90 tabs 0RF TODAY'S VISIT: Patient is here today for follow-up and to discuss going for colonoscopy. Patient finished his treatment for hep C and is feeling well. His liver enzymes normalized. Negative viral load. Patient states that he no longer has acid reflux. Denies dyspepsia, dysphagia or odynophagia. Reports that he is moving his bowels well without any issues. Patient denies melena, hematochezia, unintentional weight loss or ribbon like stools. Patient denies any GI concerning symptoms. Patient denies any issues with anesthesia in the past. No history of sleep apnea. Patient not on any anticoagulation medication. [facility] Medical History Elevated cholesterol Anxiety and depression Hepatitis C History of stroke Degenerative joint disease of hand Carpal tunnel syndrome on both sides Asthma Intracranial hemorrhage Diabetes mellitus HTN (hypertension) Surgical History (Updated 11/06/23 @ 08:02 by WINIFRED Maradiaga) Hx of elbow surgery Hx of carpal tunnel repair Hx of cystoscopy Hx of cystoscopy History of esophagogastroduodenoscopy (EGD) Hx of cholecystectomy History of tonsillectomy History of colonoscopy Family History Father HTN (hypertension) CVD (cardiovascular disease) Diabetes mellitus Mother HTN (hypertension) CVD (cardiovascular disease) Diabetes mellitus Sister No problems noted. Sister No problems noted. Sister Breast cancer Son No problems noted. 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al exposures/hazards: No Sexual orientation: Straight/Heterosexual Gender identity: Male Cognitive needs: No Hearing needs: No Vision needs: No Review of Systems Const Denies weight gain and Denies weight loss ENT Reports no additional complaints, Denies dysphagia and Denies odynophagia Card Reports no additional complaints Resp Reports no additional complaints GI Denies abdominal pain, Denies belching, Denies melena, Denies bloating, Denies change in bowel habits, Denies dysphagia, Denies excessive flatus, Denies dyspepsia, Denies heartburn, Denies diarrhea, Denies loose stools, Denies nausea, Denies odynophagia and Denies vomiting Reports no additional complaints Musc Reports no additional complaints Neuro Reports no additional complaints Psych Reports no additional complaints Endo Reports no additional complaints Physical Exam Vital Signs: Last Vital Signs Pulse 84 11/06/23 07:59 BP 154/88 H 11/06/23 07:59 BMI result Body Mass Index 21.3 Const General: healthy appearing, no acute distress and well developed Nutritional Appearance: well nourished Orientation/consciousness: patient oriented x3 Resp Effort & Inspection: normal respiratory effort, able to speak in complete sentences, no tracheal deviation and symmetric chest movement Auscultation: clear to auscultation bilaterally Cardio Rate: regular rate GI Inspection: Yes normal to inspection and No distended Palpation (GI): Soft to palpation, not firm, nontender and No hepatosplenomegaly present Auscultation: normal bowel sounds General: Yes no CVA tenderness Back/Spine/Pelvis Back: no CVA tenderness Skin General skin exam: elasticity normal, turgor normal and dry skin Neuro General: patient oriented x3 Psych Appearance: grossly normal Mental Status: mental status grossly normal Assessment & Plan Assessment & Plan (1) Screening for colon cancer: Code(s): Z12.11 - Encounter for screening for malignant neoplasm of colon Category: Medical (2) Hepatitis C: Code(s): B19.20 - Unspecified viral hepatitis C without hepatic coma Category: Medical Qualifiers: Hepatic coma status: without hepatic coma Viral hepatitis chronicity: chronic Qualified Code(s): B18.2 - Chronic viral hepatitis C Plan No issues with anesthesia in the past. Last colonoscopy in July of 2012 showed no polyps. Patient is not on any anticoagulation medication. No history of sleep apnea. Patient just finished treatment for hep C. Reports to be feeling well, no GI concerning symptoms. Patient denies any cardiac or respiratory symptoms. What to expect before during and after procedure discussed with patient. Stressed the importance of good bowel prep as well as clear liquid diet day before procedure. I will see patient after the procedure, sooner on as needed basis. He is agreeable to this plan and verbalizes understanding of instructions. He was given the opportunity to ask questions and all questions answered. Thank you for allowing me to participate in his care Medications: New bisacodyl (Dulcolax (bisacodyl)) take 4 tabs at noon the day before your colonoscopy 20 mg (4 x 5 mg) PO ONCE 4 tabs 0RF 1 day Z12.11 - Encounter for screening for malignant neoplasm of colon polyethylene glycol 3350 (Miralax) As directed by gastroenterology department at [facility] 238 grams PO ONCE 238 grams 0RF Z12.11 - Encounter for screening for malignant neoplasm of colon Discontinued famotidine Discontinued Reason: Doctor's Order 20 mg PO BEDTIME 90 tabs 0RF pantoprazole take one tablet half an hour before breakfast Discontinued Reason: Doctor's Order 40 mg PO DAILY 90 tabs 2RF K21.9 - Gastro-esophageal reflux disease without esophagitis Coding Level of Care Code Est Pt Level 3 (30323) Diagnoses Screening for colon cancer Z12.11 Chronic hepatitis C without hepatic coma B18.2 Hepatic coma status: without hepatic coma Viral hepatitis chronicity: chronic Time Spent (min) 30 Comment 20 minutes spent with patient and additional 10 minutes spent reviewing his records
[2023-11-06 07:59] VITALS: BP 154/88; PULSE 84; BMI 21.3
== END 2023-11-06 08:35 | disposition home or self-care (01) ==
PROVIDERS: PCP Family Medicine; Visit Provider Nurse Practitioner Family
DX: Z12.11 Encounter for screening for malignant neoplasm of colon (principal); B18.2 Chronic viral hepatitis C; Z01.818 Encounter for other preprocedural examination
CPT/HCPCS: 99213

== ENCOUNTER → 2023-11-06 07:46 | Outpatient (BNVA) | payer OTHER, SELFPAY | PROVIDERS: PCP Family Medicine; Visit Provider Nurse Practitioner Family | DX: Z12.11 Encounter for screening for malignant neoplasm of colon (principal); B18.2 Chronic viral hepatitis C | CPT/HCPCS: 99212 ==

== ENCOUNTER 2024-02-11 08:45 | Outpatient (AMB) | payer OTHER, SELFPAY ==
[2024-02-11 08:51] VITALS: BP 118/78; PULSE 84; TEMP 36.5; O2SAT 98; BMI 21.4
--- NOTE | 2024-02-11 08:51 | MHC.OFFWIV ---
Intake Vital Signs 02/11/24 08:51 Height 6 ft 6 in Weight 185 lb BMI 21.4 BP 118/78 Blood Pressure Location Rt brachial Position Sitting Pulse 84 Pulse Source Pulse Oximeter Temp 97.7 F Temp Source Temporal Artery Scan Pulse Oximetry (%) 98 Oxygen Delivery Method Room Air Intake Visit Reasons: EP Sinus infection Intake Note: pt c/o sinus infection, Started Saturday Patient Tobacco Use Status: Former Tobacco user Allergies aspirin [ASPIRIN] Allergy (Intermediate, Verified 02/11/24 08:58) ITCH Do you need a note to return to daycare/school/sports/work: No HPI HPI Comments History of Present Illness Details 63 y/o male patient who presents to the walk in clinic with c/o nasal congestion. This is a chronic issue that has been going on/off. Denies nausea, vomiting, fevers or chills. Pt reports seeing ENT few years back. [facility] Medical History Elevated cholesterol Anxiety and depression Hepatitis C History of stroke Degenerative joint disease of hand Carpal tunnel syndrome on both sides Asthma Intracranial hemorrhage Diabetes mellitus HTN (hypertension) Surgical History (Updated 11/06/23 @ 08:02 by WINIFRED Maradiaga) Hx of elbow surgery Hx of carpal tunnel repair Hx of cystoscopy Hx of cystoscopy History of esophagogastroduodenoscopy (EGD) Hx of cholecystectomy History of tonsillectomy History of colonoscopy Family History Father HTN (hypertension) CVD (cardiovascular disease) Diabetes mellitus Mother HTN (hypertension) CVD (cardiovascular disease) Diabetes mellitus Sister No problems noted. Sister No problems noted. Sister Breast cancer Son No problems noted. Social History Household Members: Spouse Housing: Apartment Are you a primary adult daycare coordinator to a significant other at home: No Do you presently have visiting nurse or other home services: No 75 years or older and lives alone: No Alcohol intake: current Alcohol intake frequency: holidays/special occasions only Comment: counts correct Patient Tobacco Use Status: Former Tobacco user Tobacco use type: Cigarette Cigarettes Per Day: 10 Years Smoked: 2 e-Cigarette/Vaping Use: Never Used Second Hand Smoke Exposure: No Special florencia needs: No Agree to transfusion: Yes service: No 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al status: disabled 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al exposures/hazards: No Sexual orientation: Straight/Heterosexual Gender identity: Male Cognitive needs: No Hearing needs: No Vision needs: No Review of Systems Const All systems reviewed & are unremarkable except as noted in HPI and below Physical Exam Vital Signs: Last Vital Signs Temp 97.7 F 02/11/24 08:51 Pulse 84 02/11/24 08:51 BP 118/78 02/11/24 08:51 Pulse Ox 98 02/11/24 08:51 Oxygen Delivery Method Room Air 02/11/24 08:51 BMI result Body Mass Index 21.4 Const General: comfortable and no acute distress Nutritional Appearance: well nourished Orientation/consciousness: patient oriented x3 HEENT Head: Yes normocephalic Ears: external ears normal and TM abnormal bulging and with fluid behind the TM bilateral; not bullous, not dull, not with effusion and not erythematous General nose exam: Abnormal mucous membranes and turbinates present boggy and pale Face and sinus: Yes sinuses nontender Mouth: moist mucous membranes Throat: Yes posterior oropharynx normal and Yes uvula midline Resp Effort & Inspection: normal respiratory effort, able to speak in complete sentences and no cough Auscultation: clear to auscultation bilaterally, no crackles, no rales and no rhonchi Cardio Heart sounds: S1 normal heart sound present and S2 normal heart sound present Neuro General: patient oriented x3 Assessment & Plan Assessment & Plan (1) Chronic allergic rhinitis: Code(s): J30.9 - Allergic rhinitis, unspecified Plan: OTC Sinus congestion relief Cetirizine BID PRN Medications: New oxymetazoline 0.05% (Afrin (oxymetazoline)) 2 sprays intranasal Q12H PRN 22 mL 0RF nasal congestion 3 days J30.9 - Allergic rhinitis, unspecified pseudoephedrine HCl 60 mg PO Q6H PRN 20 tabs 0RF nasal congestion 5 days J30.9 - Allergic rhinitis, unspecified Refilled cetirizine (All Day Allergy (cetirizine)) 10 mg PO DAILY 90 tabs 0RF allergy symptoms 90 days J30.9 - Allergic rhinitis, unspecified Coding Level of Care Code Est Pt Level 3 (95375) Diagnoses Chronic allergic rhinitis J30.9 Time Spent (min) 15
== END 2024-02-11 11:04 | disposition home or self-care (01) ==
PROVIDERS: PCP Family Medicine; Visit Provider Nurse Practitioner Family
DX: J30.9 Allergic rhinitis, unspecified (principal)
CPT/HCPCS: 99213

== ENCOUNTER 2024-03-11 11:25 | Day surgery (SDC) | payer OTHER, SELFPAY ==
--- NOTE | 2024-03-10 12:26 | HO.ANESPROP2 ---
HPI - Anesthesia Eval Consult details Narrative: 63yo M for Colonoscopy s/p carpal tunnel 09/2023 with GA-LMA 5 (Medically optimized per pcp prior) [facility] Active Problems Active Problems: All Active Problems Pre-operative clearance (Acute) Stiffness of hand joint (Acute) History of hepatitis C (Acute) Cubital tunnel syndrome, bilateral (Acute) Ulnar neuropathy at elbow (Acute) Wound of skin (Acute) Elevated serum creatinine (Acute) Uncontrolled diabetes mellitus with hyperglycemia (Acute) Hepatitis C (Acute) Rectal pain (Acute) Anxiety and depression (Acute) Insomnia (Acute) Furuncle (Acute) Liver disease (Acute) Type 2 diabetes, controlled, with neuropathy (Acute) Immunization counseling (Acute) Hypoglycemia (Acute) Dysuria (Acute) Allergies (Acute) Abdominal pain (Acute) Elevated liver enzymes (Acute) Screening for colon cancer (Acute) Screening for prostate cancer (Acute) Adult general medical exam (Acute) Sinusitis (Acute) Laboratory examination ordered as part of a routine general medical examination (Acute) Dermatitis (Acute) Essential hypertension (Acute) Diabetes mellitus (Acute) History of stroke (Acute) Degenerative joint disease of hand (Acute) Carpal tunnel syndrome on both sides (Acute) Past Medical History Medical History Elevated cholesterol Anxiety and depression Hepatitis C History of stroke Degenerative joint disease of hand Carpal tunnel syndrome on both sides Asthma Intracranial hemorrhage Diabetes mellitus HTN (hypertension) Family History Family History Father HTN (hypertension) CVD (cardiovascular disease) Diabetes mellitus Mother HTN (hypertension) CVD (cardiovascular disease) Diabetes mellitus Sister No problems noted. Sister No problems noted. Sister Breast cancer Son No problems noted. Family history of problems with anesthesia: No Surgical History Surgical History (Updated 11/06/23 @ 08:02 by WINIFRED Maradiaga) Hx of elbow surgery Hx of carpal tunnel repair Hx of cystoscopy Hx of cystoscopy History of esophagogastroduodenoscopy (EGD) Hx of cholecystectomy History of tonsillectomy History of colonoscopy History of Problems with Anesthesia: No Social History Social History Household Members: Spouse Housing: Apartment Are you a primary healthcare receptionist to a significant other at home: No Do you presently have visiting nurse or other home services: No Alcohol intake: current Alcohol intake frequency: holidays/special occasions only Comment: counts correct Patient Tobacco Use Status: Former Tobacco user Tobacco use type: Cigarette Cigarettes Per Day: 10 Years Smoked: 2 e-Cigarette/Vaping Use: Never Used Second Hand Smoke Exposure: No Special florencia needs: No Agree to transfusion: Yes service: No 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al status: disabled 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 Assessment and Plan Assessment Anesthesia Assessment: Chart Reviewed Final Anesthetic Review Family History of Problems with Anesthesia: No History of Problems with Anesthesia: No
[2024-03-11 12:00] VITALS: BMI 21.0
[2024-03-11 12:15] VITALS: BP 159/90; PULSE 74; RESP 16; TEMP 37.2; O2SAT 97
[2024-03-11] MEDS: Lactated Ringers 1,000 ML 100 ML IVCONT (12:24)
[2024-03-11 12:37] LABS: Glucose, Whole Blood 127 mg/dL (60-115)
--- NOTE | 2024-03-11 12:48 | MHC.SHP ---
Pre-Procedural Eval Section A - 24 Hr Update-Section A only Date of Service: 03/11/24 Section B - Complete if H&P > 30 days Chief Complaint: Encounter for screening for malignant neoplasm of Details of Present Illness: Elevated cholesterol Anxiety and depression Hepatitis C History of stroke Degenerative joint disease of hand Carpal tunnel syndrome on both sides Asthma Intracranial hemorrhage Diabetes mellitus HTN (hypertension) Surgical History (Updated 11/06/23 @ 08:02 by WINIFRED Maradiaga) Hx of elbow surgery Hx of carpal tunnel repair Hx of cystoscopy Hx of cystoscopy History of esophagogastroduodenoscopy (EGD) Hx of cholecystectomy History of tonsillectomy History of colonoscopy Allergies: Allergies Allergy/AdvReac Type Severity Reaction Status Date / Time aspirin [ASPIRIN] Allergy Intermediate ITCH Verified 02/11/24 08:58 Review of Systems Review of Systems Comment: Ten point negative Exam Exam Comment: Gen appear: No acute distress HEENT: no icterus Chest: No overt resp distress Abd: soft, nontender, nondistended Psych: Stable affect, answering questions appropriately Neuro: A/Ox3 noted to move all extremities spontaneously Ext: no peripheral edema Plan Diagnosis/Plan: Unchanged I have reviewed the history and physical and performed a pertinent physical examination on my patient. No changes have occurred unless specified. Time Spent With Patient Time: Total time managing care of this patient today ____ minutes.
[2024-03-11 13:31] VITALS: BP 145/81; PULSE 75; RESP 14; TEMP 36.3; O2SAT 98
--- NOTE | 2024-03-11 13:45 | P.OPN-COLO_ITS ---
Colonoscopy Operative Note Operative Note Date of Service: 03/11/24 Narrative: Procedure: Colonoscopy Indication: Screening Endoscopist: Sanjuana Blackmon MD Anesthesia Provider: Sanjuana Blackmon MD Anesthesia type: Moderate Sedation done due to anesthesia staffing shortage. Midazolam 4mg Fentanyl 100mcg. My total sedation time was 25 minutes. Instrument: Olympus [id number]-[id number] Consent: Indication, risks vs benefits, and alternatives were discussed with the patient who gave written informed consent to proceed. EKG, pulse, pulse oximetry and blood pressure were monitored throughout the procedure. Procedure: The patient was brought to the procedure room and placed in the left lateral decubitus position. IV medications were administered by the RN in attendance. A digital rectal exam was performed which was normal. A distal attachment cap was affixed to the tip of the colonoscope which was then inserted through the anus and advanced through the colon to the cecum at 80 cm. Appendiceal orifice and ileocecal valve were identified. Mucosa was carefully examined under high definition white light as the instrument was slowly withdrawn in a retrograde panoramic fashion. Retroflexion was performed in rectum. The procedure was not difficult. There were no immediate obvious complications. The quality of the prep was BBPS: 2+2+3 = adequate Withdrawal time 8 minutes. Limitations: No limitations. Findings: Mucosa: Normal to cecum. Protruding lesions: * 1 sessile polyp of size 2 mm in ascending colon. Cold forceps polypectomy was performed. The polyp was completely removed and retrieved. * 1 sessile polyp of size 3 mm in rectum. Cold forceps polypectomy was performed. The polyp was completely removed and retrieved. * Medium internal hemorrhoids without stigmata of recent bleeding. Excavated lesions: * Moderate diverticulosis of sigmoid colon. Impression: 1. Normal colon mucosa 2. Total of 2 polyps removed 3. Diverticulosis 4. Internal hemorrhoids Recommendations: - Follow path results. - Repeat colonoscopy in 5-7 years if polyps are adenomas or sessile serrated.
[2024-03-11 13:47] VITALS: BP 149/78; PULSE 75; RESP 18; TEMP 36.3; O2SAT 99
--- NOTE | 2024-03-11 14:12 | HO.INF ---
procedure done under conscious sedation
--- NOTE | 2024-03-11 14:28 | PC.NURSE ---
PATIENT PROCEDURE WAS COMPLETED UNDER CONSCIOUS SEDATION.
== END 2024-03-11 14:42 | disposition home or self-care (01) ==
PROVIDERS: PCP Family Medicine; Visit Provider Internal Medicine
PROC: 0DJD8ZZ Inspection of Lower Intestinal Tract, Via Natural or Artificial Opening Endoscopic (ICD-10-PCS; CPT 45378; principal; 2024-03-11 12:20)
DX: Z12.11 Encounter for screening for malignant neoplasm of colon (principal); D12.2 Benign neoplasm of ascending colon; K62.1 Rectal polyp; K57.30 Diverticulosis of large intestine without perforation or abscess without bleeding; K64.8 Other hemorrhoids; K21.9 Gastro-esophageal reflux disease without esophagitis; I10 Essential (primary) hypertension; E11.9 Type 2 diabetes mellitus without complications; J45.909 Unspecified asthma, uncomplicated; E78.00 Pure hypercholesterolemia, unspecified; B18.2 Chronic viral hepatitis C; B19.20 Unspecified viral hepatitis C without hepatic coma; Z86.73 Personal history of transient ischemic attack (TIA), and cerebral infarction without residual deficits; F41.8 Other specified anxiety disorders; Z79.4 Long term (current) use of insulin; Z79.84 Long term (current) use of oral hypoglycemic drugs; Z79.899 Other long term (current) drug therapy; Z88.8 Allergy status to other drugs, medicaments and biological substances; Z87.891 Personal history of nicotine dependence
CPT/HCPCS: 45380; 82947; 88305; J2250; J2310; J2405; J3010

== ENCOUNTER → 2024-03-11 11:25 | Outpatient (BNV) | payer OTHER, SELFPAY | PROVIDERS: PCP Family Medicine; Visit Provider Internal Medicine | DX: Z12.11 Encounter for screening for malignant neoplasm of colon (principal); D12.2 Benign neoplasm of ascending colon; D12.8 Benign neoplasm of rectum; K57.30 Diverticulosis of large intestine without perforation or abscess without bleeding | CPT/HCPCS: 45380 ==

== ENCOUNTER 2024-03-19 09:22 | Outpatient (AMB) | payer OTHER, SELFPAY ==
--- NOTE | 2024-03-19 09:25 | MHC.PC.OV ---
Vital Signs 03/19/24 09:34 Height 6 ft 6 in Weight 187 lb BMI 21.6 BP 130/70 Blood Pressure Location Rt brachial Position Sitting Respiration 12 Pulse 81 Pulse Source Pulse Oximeter Temp 96.9 F Temp Source Tympanic Pulse Oximetry (%) 98 Oxygen Delivery Method Room Air Intake Visit Reasons: med follow up Intake Note: Medication f/u Allergies aspirin [ASPIRIN] Allergy (Intermediate, Verified 03/19/24 09:26) ITCH Medication List - Last Reconciled 03/19/24 by Mic Cordero MD atorvastatin 20 mg PO BEDTIME 90 days bisacodyl (Dulcolax (bisacodyl)) 20 mg (4 x 5 mg) PO ONCE 1 day blood pressure monitor Automatic, Digital. Dx: I10. Daily As directed, 999 days/lifetime blood sugar diagnostic (FreeStyle Lite Strips) DX: E11.9, test blood sugar 2 times a day, 90 days blood-glucose meter (FreeStyle Lite Meter kit) DX: E11.9, test blood sugar 2 times a day, duration 999 days cetirizine (All Day Allergy (cetirizine)) 10 mg PO DAILY 90 days flash glucose scanning reader (StrolbyStyle Law 2 Forsan) As directed flash glucose sensor (FreeStyle Law 2 Sensor kit) 28 day supply fluticasone propionate 50 mcg/actuation (Flonase Allergy Relief) 1 spray intranasal Q12H 30 days gabapentin 300 mg PO BID 30 days hydrocortisone 2.5% (Proctosol HC) 1 appl NM BID-QID PRN insulin glargine (Lantus Solostar U-100 Insulin) 50 units (0.5 mL) subcut QPM 90 days lancets (FreeStyle Lancets) As directed lisinopril-hydrochlorothiazide 20-12.5 mg 1 tab PO DAILY 90 days metformin 500 mg PO BID 90 days methylcellulose (laxative) (Citrucel) 500 mg PO DAILY oxymetazoline 0.05% (Afrin (oxymetazoline)) 2 sprays intranasal Q12H PRN 3 days pen needle, diabetic (BD Vida 2nd Gen Pen Needle) DX: E11.9, daily As directed to treat blood sugar, 90 day supply polyethylene glycol 3350 (Miralax) 238 grams PO ONCE pseudoephedrine HCl 60 mg PO Q6H PRN 5 days trazodone 50 mg PO BEDTIME 30 days Tobacco use date assessed: 03/19/24 Dental Screening Dental Screen Date: 03/19/24 Did you have a dental visit in the last 12 months?: Yes Did you have a dental problem in the last 6 months where you did not have access to dental care?: No Was dental information given to patient?: Patient has dentist [facility] Medical History (Updated 03/19/24 @ 09:56 by Mic Cordero MD) Elevated cholesterol Anxiety and depression Hepatitis C History of stroke Degenerative joint disease of hand Carpal tunnel syndrome on both sides Asthma Intracranial hemorrhage Diabetes mellitus HTN (hypertension) Surgical History Hx of elbow surgery Hx of carpal tunnel repair Hx of cystoscopy Hx of cystoscopy History of esophagogastroduodenoscopy (EGD) Hx of cholecystectomy History of tonsillectomy History of colonoscopy Family History Father HTN (hypertension) CVD (cardiovascular disease) Diabetes mellitus Mother HTN (hypertension) CVD (cardiovascular disease) Diabetes mellitus Sister No problems noted. Sister No problems noted. Sister Breast cancer Son No problems noted. Social History (Updated 03/19/24 @ 09:29 by Ramses Lincoln MA) Household Members: Spouse Housing: Apartment Are you a primary care clinician to a significant other at home: No Do you presently have visiting nurse or other home services: No 75 years or older and lives alone: No Alcohol intake: current Alcohol intake frequency: holidays/special occasions only Comment: counts correct Patient Tobacco Use Status: Former Tobacco user Tobacco use type: Cigarette Cigarettes Per Day: 10 Years Smoked: 2 Packs per year/per ci.00 e-Cigarette/Vaping Use: Never Used Second Hand Smoke Exposure: No Use of substances other than those prescribed or required for medical reasons: No Special florencia needs: No Agree to transfusion: Yes service: No 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al status: disabled 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 1. Little interest or pleasure in doing things: not at all 2. Feeling down, depressed, or hopeless: not at all 3. Trouble falling or staying asleep, or sleeping too much: nearly every day 4. Feeling tired or having little energy: more than half the days 5. Poor appetite or overeating: not at all 6. Feeling bad about yourself - or that you are a failure or have let yourself or your family down: not at all 7. Trouble concentrating on things, such as reading the newspaper or watching television: not at all 8. Moving or speaking so slowly that other people could have noticed. Or the opposite - being so fidgety or restless that you have been moving around a lot more than usual: more than half the days 9. Thoughts that you would be better off or of hurting yourself in some way: nearly every day Total score: 10 Depression Screening Interpretation: Positive Depression Screening Done: Yes [id number] - PHQ-9 Billing: Yes Source: Developed by Drs. Erik Napoles, Genie Hernandez, Stew Edge and colleagues, with an educational sami from [employer]. Thrive Questionnaire Date Thrive assessed: 03/19/24 I am a: Patient What is your living situation today?: I have a steady place to live Within the past 12 months, did the food you bought not last and you didn't have the money to get more?: Never true Within the past 12 months, did you worry whether your food would run out before you got money to buy more?: Never true Do you have trouble paying for medicines?: No Do you have trouble getting transportation to medical appointments?: No Do you have trouble paying your heating and electricity bill?: Yes Do you have trouble taking care of your child, family member or friend?: No Do you have trouble with day-to-day activities such as bathing, preparing meals, shopping, managing finances, etc.?: Yes Are you currently unemployed and looking for a job?: No Are you interested in more education?: No Please select the resources that you would like help with: None Currently or been in a relationship where the following occur: No concerns reported THRIVE Score: 1 AUDIT C Alcohol Use Questionnaire (AUDIT-C) 1. How often do you have a drink containing alcohol?: 2-4 times a month 2. How many drinks containing alcohol do you have on a typical day when you are drinking?: 3 or 4 3. How often do you have six or more drinks on one occasion?: Monthly Total Score: 5 RIKI-7 AMB Questionnaire RIKI-7 Date RIKI - 7 assessed: 03/19/24 Feeling nervous, anxious, or on edge: 0 = Not at all Not being able to stop or control worryin = Not at all Worrying too much about different things: 2 = More than half the days Trouble relaxin = Several days Being so restless that it is hard to sit still: 1 = Several days Becoming easily annoyed or irritable: 1 = Several days Feeling afraid as if something awful might happen: 0 = Not at all Total RIKI-7 score (0-4 normal; 5-9 mild; 10-14 moderate; 15-21 severe): 5 Source: Developed by Drs. Erik Napoles, Genie Hernandez, Stew Edge and colleagues, with an educational sami from [employer]. RIKI-7 Assessment Billing RIKI-7 Assessment Tool: RIKI-7 Assessment [id number] Physical exam (Primary Care) Vital Signs: Last Vital Signs Temp 96.9 F 03/19/24 09:34 Pulse 81 03/19/24 09:34 Resp 12 03/19/24 09:34 BP 130/70 03/19/24 09:34 Pulse Ox 98 03/19/24 09:34 Oxygen Delivery Method Room Air 03/19/24 09:34 BMI result Body Mass Index 21.6 Tobacco/Smoking Status: Tobacco use Status Tobacco use date assessed 03/19/24 03/19/24 09:34 Patient Tobacco Use Status Former Tobacco user 03/19/24 09:29 Tobacco use type Cigarette 03/19/24 09:29 e-Cigarette/Vaping Use Never Used 03/19/24 09:29 PHQ-9: PHQ-9 Score PHQ-9: Total score 10 03/19/24 09:38 Depression Screening Interpretation: Positive Thrive Assessment: Date of Thrive Assessment Date Thrive assessed 03/19/24 03/19/24 09:34 Currently or been in a relationship where the following occur: No concerns reported Assessment and Plan Assessment & Plan (1) Essential hypertension: Code(s): I10 - Essential (primary) hypertension Plan: Blood?pressure?is?controlled.??Goal?is?less?than?130/80 Continue?current?medication (2) Diabetes mellitus: Code(s): E11.9 - Type 2 diabetes mellitus without complications Plan: A1c?5.8%.??Good?control.??Goal?is?less?than?7.0% Continue?current?medication (3) Low back pain: Code(s): M54.50 - Low back pain, unspecified Plan: Likely?muscular?strain Check?x-ray Can?use?Tylenol?and?ice/heat (4) Cellulitis of right foot: Code(s): L03.115 - Cellulitis of right lower limb Plan: Patient?with?diabetes?and?right?foot?callus?which?is?a?cracked?and?has?surrounding?erythema Likely?some?cellulitis No?fluctuance?at?this?time Start?cephalexin Warm?soaks Referred?to?Podiatry Call?or?return?to?office?if?not?improving?or?worsens (5) Screening for colon cancer: Code(s): Z12.11 - Encounter for screening for malignant neoplasm of colon Plan: Recent?colonoscopy?at?[facility] Patient?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?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 (6) Screening for prostate cancer: Code(s): Z12.5 - Encounter for screening for malignant neoplasm of prostate Plan: Check?PSA (7) Adult general medical exam: Code(s): Z00.00 - Encounter for general adult medical examination without abnormal findings Plan: 63-year-old?male?presenting?for?an?extended?exam Encouraged?healthy?diet?with?active?lifestyle?and?plenty?of?exercise Orders: Orders Lipid Panel Today Z00.00 - Encounter for general adult medical examination without abnormal findings TSH reflex Free T4 Today Z00.00 - Encounter for general adult medical examination without abnormal findings UA and rflx microscopic Today Z00.00 - Encounter for general adult medical examination without abnormal findings Prostate Specific Antigen Scr Today Z12.5 - Encounter for screening for malignant neoplasm of prostate Comprehensive Met. Panel Today E11.65 - Type 2 diabetes mellitus with hyperglycemia Microalbumin, Random (w Creat) Today I10 - Essential (primary) hypertension LDL Cholesterol Direct Today Z86.73 - Personal history of transient ischemic attack (TIA), and cerebral infarction without residual deficits AMB Hemoglobin A1c Today Z13.9 - Encounter for screening, unspecified, Z86.73 - Personal history of transient ischemic attack (TIA), and cerebral infarction without residual deficits XR lumbar spine 2-3V Today M54.50 - Low back pain, unspecified Hemoglobin A1c Today E11.9 - Type 2 diabetes mellitus without complications, R73.01 - Impaired fasting glucose Referrals Podiatry Referral E11.40 - Type 2 diabetes mellitus with diabetic neuropathy, unspecified, L03.115 - Cellulitis of right lower limb, L84 - Corns and callosities Medications: New cephalexin 500 mg PO Q12H 20 caps 0RF 10 days Coding Level of Care Code Est Pt Level 4 (13004) Diagnoses Essential hypertension I10 Diabetes mellitus E11.9 Low back pain M54.50 Cellulitis of right foot L03.115 Screening for colon cancer Z12.11 Screening for prostate cancer Z12.5 Adult general medical exam Z00.00 Additional Codes RIKI-7 Assessment Billing - RIKI-7 Assessment Tool: RIKI-7 Assessment [id number] ([id number])
[2024-03-19 09:34] VITALS: BP 130/70; PULSE 81; RESP 12; TEMP 36.1; O2SAT 98; BMI 21.6
== END 2024-03-19 09:55 | disposition home or self-care (01) ==
PROVIDERS: PCP Family Medicine; Visit Provider Family Medicine
DX: Z00.00 Encounter for general adult medical examination without abnormal findings (principal); I10 Essential (primary) hypertension; E11.9 Type 2 diabetes mellitus without complications; M54.50 Low back pain, unspecified; L03.115 Cellulitis of right lower limb; Z12.11 Encounter for screening for malignant neoplasm of colon; Z12.5 Encounter for screening for malignant neoplasm of prostate
CPT/HCPCS: 99214; 99396

== ENCOUNTER 2024-03-19 10:04 | Outpatient (REF) | payer OTHER, SELFPAY ==
[2024-03-19 11:38] LABS: Estimated Average Glucose 117 mg/dL; Hemoglobin A1c % 5.7 % (<6.0)
[2024-03-19 12:02] LABS: Prostate Specific Antigen Scr 1.35 ng/mL (<0.05-4.0)
[2024-03-19 12:38] LABS: Alanine Aminotransferase 17 U/L (0-40); Albumin Level 4.4 g/dL (3.5-5.0); Alkaline Phosphatase 76 U/L (39-117); Anion Gap 13 (12-20); Aspartate Amino Transferase 26 U/L (5-37); Bilirubin Total 0.7 mg/dL (0.0-1.0); Blood Urea Nitrogen 15 mg/dL (9-16); Calcium 10.1 mg/dL (8.4-10.2); Carbon Dioxide 27 mmol/L (22-29); Chloride 101 mmol/L (96-108); Cholesterol 181 mg/dL (<200); Estimated Glomerular Filt Rate > 60; Glucose Fasting 145 mg/dL (60-99); Glucose Random 145 mg/dL (60-115); HDL Cholesterol 43 mg/dL (>40); LDL Cholesterol Calculated 126 mg/dL (<100); Potassium 4.4 mmol/L (3.3-5.1); Sodium 137 mmol/L (135-145); Total Protein 8.2 g/dL (6.5-8.0); Triglycerides 62 mg/dL (<150)
[2024-03-19 12:53] LABS: TSH reflex Free T4 0.43 uIU/mL (0.32-4.0)
[2024-03-19 14:13] LABS: Appearance Urine Clear; Color Urine Yellow; Glucose Urine UA >=1000 mg/dL (Negative); Leukocyte Esterase Urine Negative (Negative); Nitrite Urine Negative (Negative); PH 5.5 (5.0-9.0); UMIC TRIGGER UA YES; Urine Blood Trace (Negative); Urine Ketones Negative (Negative); Urine Protein Negative (Neg-Trace)
[2024-03-19 14:19] LABS: Bacteria Urine None Seen (None Seen); Hyaline Casts Urine 0-2 /LPF (0-2); RBC Urine 0-2 /HPF (0-2); Squamous Epithelial Cell Urine 0-2 /HPF (0-2); WBC Urine 0-5 /HPF (0-5)
[2024-03-19 15:05] LABS: Creatinine Urine 108.88 mg/dL; Microalbum/Creatinine Ratio Ur 26.6 ug/mg cr (<30)
[2024-03-21 03:44] LABS: LDL Cholesterol Direct 128 mg/dL (<100)
== END 2024-03-19 10:05 | disposition home or self-care (01) ==
LOC: HO.WFDLDS 10:04
PROVIDERS: Visit Provider Family Medicine
DX: Z00.00 Encounter for general adult medical examination without abnormal findings (principal); E11.65 Type 2 diabetes mellitus with hyperglycemia; I10 Essential (primary) hypertension; R73.01 Impaired fasting glucose; Z86.73 Personal history of transient ischemic attack (TIA), and cerebral infarction without residual deficits; Z12.5 Encounter for screening for malignant neoplasm of prostate
CPT/HCPCS: 36415; 80053; 80061; 81001; 82043; 82570; 83036; 83721; 84153; 84443

== ENCOUNTER 2024-04-09 10:37 | Outpatient (AMB) | payer OTHER, SELFPAY ==
--- NOTE | 2024-04-09 10:44 | MHC.PC.OV ---
Vital Signs 04/09/24 10:46 Height 6 ft 6 in Weight 184 lb 2 oz BMI 21.3 BP 104/68 Blood Pressure Location Rt brachial Position Sitting Respiration 10 L Pulse 90 Pulse Source Pulse Oximeter Temp 98.0 F Temp Source Oral Pulse Oximetry (%) 97 Oxygen Delivery Method Room Air Intake Visit Reasons: check up Intake Note: follow up for cpe labs Allergies aspirin [ASPIRIN] Allergy (Intermediate, Verified 04/09/24 10:45) ITCH Tobacco use date assessed: 03/19/24 Dental Screening Dental Screen Date: 03/19/24 HPI check up HPI Details 63 y/o male presents to f/u CPE-labs, low back pain and R foot cellulitis in pt with diabetes. Had given him a script for cephalexin and referred him to Podiatry. He notes no one has contacted him yet from podiatry. Labs drawn 03/19/24. Reviewed labs with pt. A1c 5.7%. Triglyceride 62. TC 181. LDL 128. HDL 43. He is on artovastatin 20mg. PSA 1.35. HPI Comments History of Present Illness Details Documentation assistance for Mic Cordero MD, was provided by Sheldon Nicholas,? Freezer Tunnel Operator on 04/09/2024 at 11:36 AM EST. I, Dr. Cordero, have read, observed, and verified documentation. [facility] Medical History (Updated 04/09/24 @ 11:29 by Sheldon Nicholas) Elevated cholesterol Anxiety and depression Hepatitis C History of stroke Degenerative joint disease of hand Carpal tunnel syndrome on both sides Asthma Intracranial hemorrhage Diabetes mellitus HTN (hypertension) Surgical History Hx of elbow surgery Hx of carpal tunnel repair Hx of cystoscopy Hx of cystoscopy History of esophagogastroduodenoscopy (EGD) Hx of cholecystectomy History of tonsillectomy History of colonoscopy Family History Father HTN (hypertension) CVD (cardiovascular disease) Diabetes mellitus Mother HTN (hypertension) CVD (cardiovascular disease) Diabetes mellitus Sister No problems noted. Sister No problems noted. Sister Breast cancer Son No problems noted. Social History (Updated 03/19/24 @ 09:29 by PATRICIA Callahan) Household Members: Spouse Housing: Apartment Are you a primary career guidance counselor to a significant other at home: No Do you presently have visiting nurse or other home services: No 75 years or older and lives alone: No Alcohol intake: current Alcohol intake frequency: holidays/special occasions only Comment: counts correct Patient Tobacco Use Status: Former Tobacco user Tobacco use type: Cigarette Cigarettes Per Day: 10 Years Smoked: 2 e-Cigarette/Vaping Use: Never Used Second Hand Smoke Exposure: No Special florencia needs: No Agree to transfusion: Yes service: No 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al status: disabled 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 Erik Napoles, Genie Hernandez, Stew Edeg and colleagues, with an educational sami from [employer] ([place] Review of Systems Const Denies chills, Denies fatigue, Denies fever(s), Denies headache(s) and Denies weakness ENT Denies dizziness and Denies headache(s) Card Denies dyspnea Resp Denies cough, Denies dyspnea, Denies wheezing and Denies other (shortness of breath) Musc Denies numbness and Denies tingling Neuro Denies dizziness, Denies headache(s), Denies numbness, Denies tingling and Denies weakness Psych Denies anxiety and Denies depression Endo Denies fatigue Aller/Immun Denies wheezing Physical exam (Primary Care) Vital Signs: Last Vital Signs Temp 98.0 F 04/09/24 10:46 Pulse 90 04/09/24 10:46 Resp 10 L 04/09/24 10:46 BP 104/68 04/09/24 10:46 Pulse Ox 97 04/09/24 10:46 Oxygen Delivery Method Room Air 04/09/24 10:46 BMI result Body Mass Index 21.3 Tobacco/Smoking Status: Tobacco use Status Tobacco use date assessed 03/19/24 04/09/24 10:49 Patient Tobacco Use Status Former Tobacco user 04/09/24 10:49 Tobacco use type Cigarette 04/09/24 10:49 e-Cigarette/Vaping Use Never Used 04/09/24 10:49 Thrive Assessment: Date of Thrive Assessment Date Thrive assessed 03/19/24 04/09/24 10:49 Const General: well developed; No acute distress Nutritional Appearance: well nourished Orientation/consciousness: patient oriented x3 [facility] Head: Yes normocephalic and Yes atraumatic Eyes General: appearance normal, both eyes and all related structures Pupils: Equal, round and reactive pupils present EOM: EOMs intact bilaterally Resp Effort & Inspection: normal respiratory effort Neuro General: patient oriented x3 and gait normal Cranial nerves: Yes Equal, round and reactive pupils present Extrem Other: R foot callus, tenderness. Not warm or red. Psych Affect: normal affect Coding Level of Care Code Est Pt Level 4 (01262) Diagnoses Diabetes mellitus E11.9 Hyperlipidemia E78.5 Low back pain M54.50 Cellulitis of right foot L03.115 Assessment & Plan Assessment & Plan (1) Diabetes mellitus: Code(s): E11.9 - Type 2 diabetes mellitus without complications Category: Medical Plan: A1c?improved?from?5.8%?to?5.7%.??Good?control.??Goal?is?less?than?7.0% Continue?current?medication?regimen Continue?diabetic?diet (2) Hyperlipidemia: Code(s): E78.5 - Hyperlipidemia, unspecified Category: Medical Plan: LDL?cholesterol?128?is?above?goal?of?less?than?100 He?is?on?atorvastatin. Encouraged?dietary?changes. Will?recheck?lipids?at?a?subsequent?visit?and?if?still?elevated,?will?adjust?his?medication (3) Low back pain: Code(s): M54.50 - Low back pain, unspecified Category: Medical Plan: Ongoing?low?back?pain. Had?ordered?an?x-ray?but?patient?did?not?realize?he?could?get?this?done?without?an?appointment He?will?go?to?the?[facility]?walk-in?for?his?x-ray. We?can?follow-up?at?his?next?visit (4) Cellulitis of right foot: Code(s): L03.115 - Cellulitis of right lower limb Category: Medical Plan: This?has?resolved Patient?still?has?tender?callus?at?right?5th?metatarsal?head Had?referred?him?to?podiatry?but?he?has?not?been?called?back.??Will?make?new?referral
[2024-04-09 10:46] VITALS: BP 104/68; PULSE 90; RESP 10; TEMP 36.7; O2SAT 97; BMI 21.3
== END 2024-04-09 11:41 | disposition home or self-care (01) ==
PROVIDERS: PCP Family Medicine; Visit Provider Family Medicine
DX: E11.9 Type 2 diabetes mellitus without complications (principal); E78.5 Hyperlipidemia, unspecified; M54.50 Low back pain, unspecified; L03.115 Cellulitis of right lower limb

== ENCOUNTER → 2024-04-09 10:37 | Outpatient (BNVA) | payer OTHER, SELFPAY | PROVIDERS: PCP Family Medicine; Visit Provider Family Medicine | DX: E11.9 Type 2 diabetes mellitus without complications (principal); E78.5 Hyperlipidemia, unspecified; M54.50 Low back pain, unspecified; L03.115 Cellulitis of right lower limb | CPT/HCPCS: 99212 ==

== ENCOUNTER → 2024-05-07 09:45 | Outpatient (BNVA) | payer OTHER, SELFPAY | PROVIDERS: PCP Family Medicine ==

== ENCOUNTER → 2024-08-12 08:25 | Outpatient (BNV) | payer OTHER, SELFPAY | PROVIDERS: PCP Family Medicine; Visit Provider Physical Medicine & Rehabilitation | DX: G56.01 Carpal tunnel syndrome, right upper limb (principal); G56.11 Other lesions of median nerve, right upper limb | CPT/HCPCS: 95886; 95909 ==

== ENCOUNTER → 2024-08-21 14:27 | Outpatient (BNVA) | payer OTHER, SELFPAY | PROVIDERS: PCP Family Medicine; Visit Provider Family Medicine ==

== ENCOUNTER 2024-10-21 15:41 | Outpatient (AMB) | payer OTHER, SELFPAY ==
--- NOTE | 2024-10-21 15:51 | A.OFFPC_ITS ---
Vital Signs 10/21/24 15:59 10/21/24 16:04 Height 6 ft 6 in Weight 198 lb BMI 22.9 BP 150/70 H 140/70 H Blood Pressure Location Rt brachial Rt brachial Position Sitting Sitting Respiration 16 Pulse 87 Pulse Source Pulse Oximeter Temp 98.1 F Temp Source Oral Pulse Oximetry (%) 98 Oxygen Delivery Method Room Air Intake Visit Reasons: Medication review Allergies aspirin [ASPIRIN] Allergy (Intermediate, Verified 10/21/24 15:58) ITCH Medication List - Last Reconciled 10/21/24 by Mic Cordero MD atorvastatin 20 mg PO BEDTIME 90 days bisacodyl (Dulcolax (bisacodyl)) 20 mg (4 x 5 mg) PO ONCE 1 day blood pressure monitor Automatic, Digital. Dx: I10. Daily As directed, 999 days/lifetime blood sugar diagnostic (FreeStyle Lite Strips) DX: E11.9, test blood sugar 2 times a day, 90 days blood-glucose meter (FreeStyle Lite Meter kit) DX: E11.9, test blood sugar 2 times a day, duration 999 days cetirizine (All Day Allergy (cetirizine)) 10 mg PO DAILY 90 days flash glucose scanning reader (Active EndpointsStyle Law 2 [place]) As directed flash glucose sensor (FreeStyle Law 2 Sensor kit) 28 day supply fluticasone propionate 50 mcg/actuation (Flonase Allergy Relief) 1 spray intranasal Q12H 30 days gabapentin 300 mg PO BID 30 days hydrocortisone 2.5% (Proctosol HC) 1 appl VA BID-QID PRN insulin glargine (Lantus Solostar U-100 Insulin) 50 units (0.5 mL) subcut QPM 90 days lancets (FreeStyle Lancets) As directed lisinopril-hydrochlorothiazide 20-12.5 mg 1 tab PO DAILY 90 days metformin 500 mg PO BID 90 days methylcellulose (laxative) (Citrucel) 500 mg PO DAILY oxymetazoline 0.05% (Afrin (oxymetazoline)) 2 sprays intranasal Q12H PRN 3 days pen needle, diabetic DX: E11.9, daily As directed to treat blood sugar, 90 day supply polyethylene glycol 3350 (Miralax) 238 grams PO ONCE pseudoephedrine HCl 60 mg PO Q6H PRN 5 days trazodone 50 mg PO BEDTIME 30 days Tobacco use date assessed: 03/19/24 Dental Screening Dental Screen Date: 10/21/24 Did you have a dental visit in the last 12 months?: No Did you have a dental problem in the last 6 months where you did not have access to dental care?: No Was dental information given to patient?: No HPI Medication review HPI Details 64 y/o male presents to f/u [facility]. He notes he has not been taking artovastatin. Lipids were elevated from labs drawn in March. Has not gotten contacted by podiatry yet for his foot pain. He has ongoing complaints of finger stiffness/swelling. Has complaints of a painful rash around his side/ribs. [facility] Medical History (Updated 10/21/24 @ 16:38 by Sheldon Nicholas) Elevated cholesterol Anxiety and depression Hepatitis C History of stroke Degenerative joint disease of hand Carpal tunnel syndrome on both sides Asthma Intracranial hemorrhage Diabetes mellitus HTN (hypertension) Surgical History Hx of elbow surgery Hx of carpal tunnel repair Hx of cystoscopy Hx of cystoscopy History of esophagogastroduodenoscopy (EGD) Hx of cholecystectomy History of tonsillectomy History of colonoscopy Family History Father HTN (hypertension) CVD (cardiovascular disease) Diabetes mellitus Mother HTN (hypertension) CVD (cardiovascular disease) Diabetes mellitus Sister No problems noted. Sister No problems noted. Sister Breast cancer Son No problems noted. Social History (Updated 03/19/24 @ 09:29 by Ramses Lincoln [facility]) Household Members: Spouse Housing: Apartment Are you a primary intensive care medicine specialist to a significant other at home: No Do you presently have visiting nurse or other home services: No 75 years or older and lives alone: No Alcohol intake: current Alcohol intake frequency: holidays/special occasions only Comment: counts correct Patient Tobacco Use Status: Former Tobacco user Tobacco use type: Cigarette Cigarettes Per Day: 10 Years Smoked: 2 e-Cigarette/Vaping Use: Never Used Second Hand Smoke Exposure: No Special florencia needs: No Agree to transfusion: Yes service: No 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al status: disabled 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 1. Little interest or pleasure in doing things: not at all 2. Feeling down, depressed, or hopeless: not at all 3. Trouble falling or staying asleep, or sleeping too much: not at all 4. Feeling tired or having little energy: not at all 5. Poor appetite or overeating: not at all 6. Feeling bad about yourself - or that you are a failure or have let yourself or your family down: not at all 7. Trouble concentrating on things, such as reading the newspaper or watching television: not at all 8. Moving or speaking so slowly that other people could have noticed. Or the opposite - being so fidgety or restless that you have been moving around a lot more than usual: not at all 9. Thoughts that you would be better off or of hurting yourself in some way: not at all Total score: 0 Depression Screening Interpretation: Negative Depression Screening Done: Yes 96610 - PHQ-9 Billing: Yes Source: Developed by Drs. Erik Napoles, Genie Hernandez, Stew Edge and colleagues, with an educational sami from [employer]. Thrive Questionnaire Date Thrive assessed: 10/21/24 I am a: Patient What is your living situation today?: I have a steady place to live Within the past 12 months, did the food you bought not last and you didn't have the money to get more?: Often true Within the past 12 months, did you worry whether your food would run out before you got money to buy more?: Often true Do you have trouble paying for medicines?: No Do you have trouble getting transportation to medical appointments?: No Do you have trouble paying your heating and electricity bill?: I choose not to answer this question Do you have trouble taking care of your child, family member or friend?: No Do you have trouble with day-to-day activities such as bathing, preparing meals, shopping, managing finances, etc.?: Yes Are you currently unemployed and looking for a job?: No Are you interested in more education?: No Please select the resources that you would like help with: Food Currently or been in a relationship where the following occur: No concerns reported THRIVE Score: 2 AUDIT C Alcohol Use Questionnaire (AUDIT-C) 1. How often do you have a drink containing alcohol?: Never 3. How often do you have six or more drinks on one occasion?: Never Total Score: 0 Score Reviewed/Action Taken: Yes RIKI-7 AMB Questionnaire RIKI-7 Date RIKI - 7 assessed: 10/21/24 Feeling nervous, anxious, or on edge: 0 = Not at all Not being able to stop or control worryin = Not at all Worrying too much about different things: 0 = Not at all Trouble relaxin = Not at all Being so restless that it is hard to sit still: 0 = Not at all Becoming easily annoyed or irritable: 0 = Not at all Feeling afraid as if something awful might happen: 0 = Not at all Total RIKI-7 score (0-4 normal; 5-9 mild; 10-14 moderate; 15-21 severe): 0 Source: Developed by Drs. Erik Napoles, Genie Hernandez, Stew Edge and colleagues, with an educational sami from [employer]. RIKI-7 Assessment Billing RIKI-7 Assessment Tool: RIKI-7 Assessment 41044 Review of Systems Const Denies chills, Denies fatigue, Denies fever(s), Denies headache(s) and Denies weakness ENT Denies dizziness and Denies headache(s) Card Denies dyspnea Resp Denies cough, Denies dyspnea, Denies wheezing and Denies other (shortness of breath) Musc Denies numbness and Denies tingling Skin/Breast Reports rash Neuro Denies dizziness, Denies headache(s), Denies numbness, Denies tingling and Denies weakness Psych Denies anxiety and Denies depression Endo Denies fatigue Aller/Immun Denies wheezing Physical exam (Primary Care) Vital Signs: Last Vital Signs Temp 98.1 F 10/21/24 15:59 Pulse 87 10/21/24 15:59 Resp 16 10/21/24 15:59 BP 140/70 H 10/21/24 16:04 Pulse Ox 98 10/21/24 15:59 Oxygen Delivery Method Room Air 10/21/24 15:59 BMI result Body Mass Index 22.9 Tobacco/Smoking Status: Tobacco use Status Tobacco use date assessed 03/19/24 10/21/24 15:56 Patient Tobacco Use Status Former Tobacco user 10/21/24 15:56 Tobacco use type Cigarette 10/21/24 15:56 e-Cigarette/Vaping Use Never Used 10/21/24 15:56 PHQ-9: PHQ-9 Score PHQ-9: Total score 0 10/21/24 16:07 Depression Screening Interpretation: Negative Thrive Assessment: Date of Thrive Assessment Date Thrive assessed 10/21/24 10/21/24 16:07 Currently or been in a relationship where the following occur: No concerns reported Const General: well developed; No acute distress Nutritional Appearance: well nourished Orientation/consciousness: patient oriented x3 HENMT Head: Yes normocephalic and Yes atraumatic Eyes General: appearance normal, both eyes and all related structures Pupils: Equal, round and reactive pupils present EOM: EOMs intact bilaterally Resp Effort & Inspection: normal respiratory effort Neuro General: patient oriented x3 and gait normal Cranial nerves: Yes Equal, round and reactive pupils present Psych Affect: normal affect Coding Level of Care Code Est Pt Level 4 (19328) Diagnoses Hyperlipidemia E78.5 Stiffness of hand joint M25.649 Foot pain M79.673 Rash R21 Erectile dysfunction N52.9 Stiffness of joints of both hands M25.641; M25.642 Additional Codes RIKI-7 Assessment Billing - RIKI-7 Assessment Tool: RIKI-7 Assessment 68948 ([id number]) PHQ-9 - 57627 - PHQ-9 Billing: Yes ([id number]) Assessment & Plan Assessment & Plan (1) Hyperlipidemia: Code(s): E78.5 - Hyperlipidemia, unspecified Category: Medical Plan: Patient?has?not?gotten?lipids?drawn.??Also?has?not?started?atorvastatin At?this?point?we?will?have?him?get?his?lipids?drawn?and?reviewed?together?and?de termine?next?steps. (2) Stiffness of hand joint: Code(s): M25.649 - Stiffness of unspecified hand, not elsewhere classified Category: Medical Plan: Severe?stiffness?bilateral?hand?joints?with?erythema.?? He?does?have swelling/deformity?of?finger?joints but?no?edema Checking inflammatory?markers?and?autoimmune?markers Checking?x-ray May?need?referral?to?career services representative?or?referral?back?to?hand specialist (3) Foot pain: Code(s): M79.673 - Pain in unspecified foot Category: Medical Plan: Stiffness?bilateral?feet joint s?foot?and?toes?have?swelling/deformity?without?edema. As?above?checking?inflammatory?and?autoimmune?markers He?is?referred?to?Podiatry?again. (4) Rash: Code(s): R21 - Rash and other nonspecific skin eruption Category: Medical Plan: Unilateral?rash?wrapping?around?left?ribs Patient?notes?pain This?appears?to?be?shingles?and?he?will?start?valacyclovir.??Refilled?gabapentin ?for?pain (5) Erectile dysfunction: Code(s): N52.9 - Male erectile dysfunction, unspecified Category: Medical Plan: Check T level (6) Stiffness of joints of both hands: Code(s): M25.641 - Stiffness of right hand, not elsewhere classified; M25.642 - Stiffness of left hand, not elsewhere classified Category: Medical Plan: As?above Orders: Orders Erythrocyte Sedimentation Rate Today M25.641 - Stiffness of right hand, not elsewhere classified, M25.642 - Stiffness of left hand, not elsewhere classified Rheumatoid Factor Today M25.641 - Stiffness of right hand, not elsewhere classified, M25.642 - Stiffness of left hand, not elsewhere classified Lipid Panel Today E78.5 - Hyperlipidemia, unspecified, Z00.00 - Encounter for general adult medical examination without abnormal findings XR hand LT 2V Today M25.649 - Stiffness of unspecified hand, not elsewhere classified XR hand RT 2V Today M25.641 - Stiffness of right hand, not elsewhere classified, M25.642 - Stiffness of left hand, not elsewhere classified CRP High Sensitivity Today M25.641 - Stiffness of right hand, not elsewhere classified, M25.642 - Stiffness of left hand, not elsewhere classified HELADIO Reflex Titer and Pattern Today M25.641 - Stiffness of right hand, not elsewhere classified, M25.642 - Stiffness of left hand, not elsewhere classified Cyclic Citrullinated Peptide Today M25.641 - Stiffness of right hand, not elsewhere classified, M25.642 - Stiffness of left hand, not elsewhere classified Complete Blood Count Auto Diff Today M25.641 - Stiffness of right hand, not elsewhere classified, M25.642 - Stiffness of left hand, not elsewhere classified, Z00.00 - Encounter for general adult medical examination without abnormal findings Comprehensive [place]. Panel Fast Today E78.5 - Hyperlipidemia, unspecified, Z00.00 - Encounter for general adult medical examination without abnormal findings Medications: New valacyclovir 500 mg PO BID 14 days 28 tabs 0RF Refilled gabapentin 300 mg PO BID 30 days 60 caps 1RF R21 - Rash and other nonspecific skin eruption
[2024-10-21 15:59] VITALS: BP 150/70; PULSE 87; RESP 16; TEMP 36.7; O2SAT 98; BMI 22.9
[2024-10-21 16:04] VITALS: BP 140/70
--- OUTSIDE RECORDS SUMMARY | 2024-10-21 18:06 | XMS_ITS | Clinical Summary ---
Author Organization [facility] [employer] [facility] Address [address] [place] [address] Care Team Providers Care Senior Linux Unix Administrator Name Role Phone Unavailable Primary Care Provider Unavailabl e Allergies Active Allergy Reactions Criticality Noted Date Comments Aspirin Hives,Rash Low 05/08/2023 Medications gabapentin (Neurontin) 300 MG capsule TAKE 1 CAPSULE BY MOUTH 2 TIMES A DAY FOR 30 DAYS 3 Active Lantus SoloStar 100 UNIT/ML pen INJECT 50 UNITS SUBCUTANEOUSLY EVERY EVENING FOR 30 DAYS. 3 Active lisinopril-hyd roCHLOROthiazi de 20-12.5 MG tablet Take 1 tablet by mouth in the morning. 3 Active metFORMIN (Glucophage) 500 MG tablet Take 500 mg by mouth 2 times daily. 3 Active sofosbuvir-jodie patasvir (Epclusa) 400-100 MG tablet 3 Active traZODone (Desyrel) 50 MG tablet Take 50 mg by mouth at bedtime. 3 Active Social History Tobacco Use Types Packs/Day Years Used Date Smoking Tobacco: Never Smokeless Tobacco: Never Tobacco Cessation:Counseling Given: Not Answered Sex and Gender Information Value Date Recorded Sex Assigned at Male 05/07/2022 10:20 AM EDT Legal Sex Male 10:20 AM EDT Gender Identity Male 02/01/2023 11:18 AM EDT Sexual Orientation Choose not to disclose 2022 11:18 AM EDT Last Filed Vital Signs Vital Sign Reading Time Taken Comments Blood Pressure 140/88 05/08/2023 9:09 AM EDT Pulse 111 05/08/2023 9:05 AM EDT Temperature - - Respiratory Rate - - Oxygen Saturation - - Inhaled Oxygen Concentration - - Weight - - Height - - Body Mass Index - - Plan of Treatment Health Maintenance Due Date Last Done Comments CT Colonography 1962 Colonoscopy 1962 Colorectal Cancer Screening 1962 Dental Prophylaxis 1962 Depression Screening 1962 FIT DNA/Cologuard 1962 FIT 1962 FOBT 1962 HIV Screening 1962 Lipid Panel 1962 SDOH Screening 1962 Sigmoidoscopy 1962 Alcohol/Substance Use Screening 1974 Hepatitis C Screening 1980 Zoster Vaccines (1 of 2) 2012 Pneumococcal Vaccine: 50+ Years (2 of 2 - PCV) 01/06/2013 01/07/2012 Hepatitis B Vaccines (2 of 3 - 19+ 3-dose series) 04/09/2023 03/12/2023, 06/23/2010, 03/07/2010, Additional history exists Dental Oral Exam 11/07/2023 05/08/2023 COVID-19 Vaccine ( - season) 2024 Influenza Vaccine (#1) 2024 , 05/05/2019, 05/19/2018, Additional history exists Dental X-Ray: Bitewings 05/09/2024 05/08/2023 Tobacco Screening 09/03/2024 09/03/2023 Dental X-Ray: Full Mouth 05/09/2026 05/08/2023 DTaP/Tdap/Td Vaccines (2 - Td or Tdap) 05/19/2028 05/19/2018, 12/19/2009 RSV Patients and Patients Aged 60 years or older (1 - 1-dose 75+ series) 2037 Hepatitis A Vaccines Aged Out 03/12/2023, 06/23/2010, 12/19/2009 No longer eligible based on patient's age to complete this topic HIB Vaccines Aged Out No longer eligi ble based on patient's age to complete this topic HPV Vaccines Aged Out No longer eligi ble based on patient's age to complete this topic IPV Vaccines Aged Out No longer eligi ble based on patient's age to complete this topic Meningococcal Vaccine Aged Out No linda sreekanth eligible based on patient's age to complete this topic RSV under 20 months Aged Out No longe r eligible based on patient's age to complete this topic Rotavirus Vaccines Aged Out No longer eligible based on patient's age to complete this topic Procedures Procedure Name Priority Date/Time Associated Diagnosis Comments INTRAORAL - COMPLETE SERIES OF RADIOGRAPHIC IMAGES Routine 05/08/2023 9:00 AM EDT COMPREHENSIVE ORAL EVALUATION - NEW OR ESTABLISHED PATIENT Routine 05/08/2023 9:00 AM EDT from Last 3 Months or Most Recently Relevant to Health Maintenance Insurance DENT[employer]-[facility] MEDICAID STAND ADULT
== END 2024-10-21 16:36 | disposition home or self-care (01) ==
LOC: HO.HMCFM 15:41
PROVIDERS: PCP Family Medicine; Visit Provider Family Medicine
DX: E78.5 Hyperlipidemia, unspecified (principal); M25.649 Stiffness of unspecified hand, not elsewhere classified; M79.673 Pain in unspecified foot; R21 Rash and other nonspecific skin eruption; N52.9 Male erectile dysfunction, unspecified; M25.641 Stiffness of right hand, not elsewhere classified; M25.642 Stiffness of left hand, not elsewhere classified

== ENCOUNTER → 2024-10-21 15:41 | Outpatient (BNVA) | payer OTHER, SELFPAY | PROVIDERS: PCP Family Medicine; Visit Provider Family Medicine | DX: E78.5 Hyperlipidemia, unspecified (principal); M25.642 Stiffness of left hand, not elsewhere classified; M25.641 Stiffness of right hand, not elsewhere classified; M79.673 Pain in unspecified foot; R21 Rash and other nonspecific skin eruption; N52.9 Male erectile dysfunction, unspecified; M25.461 Effusion, right knee | CPT/HCPCS: 96127; 99212 ==

== ENCOUNTER 2024-10-23 08:05 | Outpatient (REF) | payer OTHER, SELFPAY ==
--- OUTSIDE RECORDS SUMMARY | 2024-10-23 08:14 | XMS_ITS | Clinical Summary ---
Author Organization [facility] [employer] [facility] Address [address] [place] [address] Care Team Providers Care Loadmaster Name Role Phone Unavailable Primary Care Provider [...] Most Recently Relevant to Health Maintenance Insurance [facility]ENT[employer]-[facility] MEDICAID STAND ADULT
[2024-10-23 09:57] LABS: Appearance Urine Clear; Color Urine Yellow; Glucose Urine UA >=1000 mg/dL (Negative); Leukocyte Esterase Urine Negative (Negative); Nitrite Urine Negative (Negative); PH 5.5 (5.0-9.0); Specific Gravity - Urine 1.025 (1.005-1.025); UMIC TRIGGER UA YES; Urine Blood Small (1+) (Negative); Urine Ketones Negative (Negative); Urine Protein Trace mg/dL (Neg-Trace)
[2024-10-23 10:01] LABS: MANUAL DIFF FLAG NO
[2024-10-23 10:08] LABS: Basophils Percent Auto 0.5 % (0-2); Eosinophils Absolute Auto 0.3 X10*3/uL (0.0-0.4); Eosinophils Percent Auto 3.5 % (0-4); Hemoglobin 15.2 g/dl (14.0-18.0); Imm Gran Abs Auto 0.03 X10*3/uL (0.00-0.03); Imm Gran Pct Auto 0.3 % (0.0-0.4); Lymphocytes Absolute Auto 3.2 X10*3/uL (1.2-4.9); Lymphocytes Percent Auto 36.6 % (20-40); Mean Corpuscular Hemoglobin 30.2 pg (27.0-33.0); Mean Corpuscular Volume 91.5 fL (80.0-98.0); Monocytes Absolute Auto 0.9 X10*3/uL (0.1-1.2); Monocytes Percent Auto 10.2 % (2-11); Neutrophils Absolute Auto 4.3 x10*3/uL (2.0-8.3); Neutrophils Percent Auto 48.9 % (45-73); Platelet Count 217 X10*3/uL (160-400); Red Blood Count 5.03 X10*6/uL (4.60-5.80); Red Cell Distribution Width 12.6 % (11.0-16.0); White Blood Count 8.8 X10*3/uL (4.8-10.8)
[2024-10-23 10:12] LABS: Bacteria Urine Trace (None Seen); Hyaline Casts Urine 0-2 /LPF (0-2); RBC Urine 0-2 /HPF (0-2); Squamous Epithelial Cell Urine 0-2 /HPF (0-2); WBC Urine 0-5 /HPF (0-5)
[2024-10-23 10:13] LABS: Estimated Average Glucose 105 mg/dL; Hemoglobin A1c % 5.3 % (<6.0); Total Hemoglobin (HGBA1C) 4003.2209 umol/L
[2024-10-23 10:27] LABS: Rheumatoid Factor < 13.0 IU/mL (<15.0)
[2024-10-23 10:40] LABS: Creatinine Urine 130.19 mg/dL
[2024-10-23 10:43] LABS: TSH reflex Free T4 0.88 uIU/mL (0.32-4.0)
[2024-10-23 10:46] LABS: Prostate Specific Antigen Scr 1.37 ng/mL (<0.05-4.0)
[2024-10-23 10:53] LABS: Alanine Aminotransferase 22 U/L (0-40); Albumin Level 4.1 g/dL (3.5-5.0); Anion Gap 11 (12-20); Aspartate Amino Transferase 27 U/L (5-37); Bilirubin Total 0.5 mg/dL (0.0-1.0); Blood Urea Nitrogen 22 mg/dL (9-16); Calcium 9.9 mg/dL (8.4-10.2); Carbon Dioxide 30 mmol/L (22-29); Chloride 103 mmol/L (96-108); Cholesterol 163 mg/dL (<200); Estimated Glomerular Filt Rate > 60; Glucose Fasting 127 mg/dL (60-99); HDL Cholesterol 37 mg/dL (>40); LDL Cholesterol Calculated 95 mg/dL (<100); Potassium 4.2 mmol/L (3.3-5.1); Sodium 140 mmol/L (135-145); Total Protein 7.6 g/dL (6.5-8.0); Triglycerides 156 mg/dL (<150)
[2024-10-23 10:58] LABS: Erythrocyte Sedimentation Rate 7 MM/HR (0-15)
[2024-10-23 19:43] LABS: Alkaline Phosphatase 63 U/L (39-117)
[2024-10-26 16:53] LABS: CRP High Sensitivity 1.4 mg/L
[2024-10-27 08:24] LABS: Cyclic Citrullinated Peptide <16 UNITS
[2024-10-28 13:48] LABS: Anti Nuclear Antibody Screen POSITIVE (NEGATIVE)
== END 2024-10-23 08:06 | disposition home or self-care (01) ==
LOC: HO.HMGCLDS 08:05
PROVIDERS: PCP Family Medicine; Visit Provider Family Medicine
DX: Z00.00 Encounter for general adult medical examination without abnormal findings (principal); M54.50 Low back pain, unspecified; I10 Essential (primary) hypertension; E11.9 Type 2 diabetes mellitus without complications; M25.641 Stiffness of right hand, not elsewhere classified; M25.642 Stiffness of left hand, not elsewhere classified; E78.5 Hyperlipidemia, unspecified; Z12.5 Encounter for screening for malignant neoplasm of prostate
CPT/HCPCS: 36415; 80053; 80061; 81001; 82043; 82570; 83036; 84153; 84443; 85025; 85652; 86038; 86039; 86141; 86200; 86431

== ENCOUNTER 2024-10-26 08:07 | Outpatient (REF) | payer OTHER, SELFPAY ==
--- NOTE | ~2024-10-26 | XR_ITS ---
EXAMINATION: XR LUMBOSACRAL SPINE CLINICAL INFORMATION: M54.50 - Low back pain, unspecified COMPARISON: None available. TECHNIQUE: Three views of the lumbosacral spine. FINDINGS: Multilevel marginal osteophyte formation and syndesmophyte formation and endplate sclerosis with decreased intervertebral disc height more conspicuous at L5-S1 and to a lesser extent L4-5. No acute cortical disruption. Grade 1 anterolisthesis L3-4. Questionable transversely oriented lucency at the pars interarticulares L3-4.. There is 20% volume loss at L4, L5 and to a lesser extent L2 and L3. No lytic or blastic lesions. Calcified plaques in the abdominal aorta. XR/XR lumbar spine 2-3V IMPRESSION: Multilevel lumbar spondylosis more pronounced at L5-S1 and to a lesser extent L4-5. Grade 1 anterolisthesis L3-4 with the questionable spondylolysis pars interarticularis.. Electronically signed by: Mat Munoz MD 10/27/2024 07:41 AM EDT
--- NOTE | ~2024-10-26 | XR_ITS ---
EXAMINATION: XR HAND, LEFT CLINICAL INFORMATION: M25.649 - Stiffness of unspecified hand, not elsewhere classified COMPARISON: None available. TECHNIQUE: PA, lateral, and oblique views of the left hand. FINDINGS: Pencil in cup deformity distal phalanx of the second digit. Mild radial deformity of the proximal interphalangeal joint fifth digit. No acute cortical disruption or gross malalignment. No lytic or blastic lesions. XR/XR hand LT min 3V IMPRESSION: Concerning systemic sclerosis versus rheumatoid arthritis. Clinodactyly, mild, fifth digit. Electronically signed by: Mat Munoz MD 10/27/2024 07:48 AM EDT
--- NOTE | ~2024-10-26 | XR_ITS ---
EXAMINATION: XR HAND, RIGHT CLINICAL INFORMATION: M25.641 - Stiffness of right hand, not elsewhere classified COMPARISON: None available. TECHNIQUE: PA, lateral, and oblique views of the right hand. FINDINGS: No acute cortical disruption or gross malalignment. There is a radial deviation of the proximal interphalangeal joint fifth digit. Small exostosis in the distal phalanx of the first and second digits. No lytic or blastic lesions. No subcutaneous emphysema. XR/XR hand RT min 3V IMPRESSION: Clinodactyly, fifth digit. Degenerative changes distal phalanges first and second digit. Electronically signed by: Mat Munoz MD 10/27/2024 07:45 AM EDT
--- OUTSIDE RECORDS SUMMARY | 2024-10-26 08:10 | XMS_ITS | Clinical Summary ---
Author Organization [facility] [employer] [facility] Address [address] [place] [address] Care Team Providers Care Emergency Room Nurse Name Role Phone Unavailable Primary Care Provider [...] Most Recently Relevant to Health Maintenance Insurance [facility] MEDICAID STAND ADULT
== END 2024-10-26 08:08 | disposition home or self-care (01) ==
LOC: HO.HMGCX 08:07
PROVIDERS: PCP Family Medicine; Visit Provider Family Medicine
DX: M54.50 Low back pain, unspecified (principal); M25.641 Stiffness of right hand, not elsewhere classified; M25.642 Stiffness of left hand, not elsewhere classified
CPT/HCPCS: 72100; 73130

== ENCOUNTER → 2024-10-26 08:36 | Outpatient (BNV) | payer OTHER, SELFPAY | PROVIDERS: PCP Family Medicine; Visit Provider Radiology Diagnostic Radiology | DX: Q68.1 Congenital deformity of finger(s) and hand (principal); M47.896 Other spondylosis, lumbar region | CPT/HCPCS: 72100; 73130 ==

== ENCOUNTER 2024-11-04 10:20 | Outpatient (AMB) | payer OTHER, SELFPAY ==
--- NOTE | 2024-11-04 10:26 | MHC.PC.OV ---
Vital Signs 11/04/24 10:34 Height 6 ft 6 in Weight 198 lb 4 oz BMI 22.9 BP 136/60 Blood Pressure Location Lt radial Position Sitting Respiration 16 Pulse 76 Pulse Source Pulse Oximeter Temp 97.5 F Temp Source Oral Pulse Oximetry (%) 98 Oxygen Delivery Method Room Air Intake Visit Reasons: f/u labs Intake Note: tunde Allergies aspirin [ASPIRIN] Allergy (Intermediate, Verified 11/04/24 10:28) ITCH Medication List - Last Reconciled 11/04/24 by Mic Cordero MD atorvastatin 20 mg PO BEDTIME 90 days bisacodyl (Dulcolax (bisacodyl)) 20 mg (4 x 5 mg) PO ONCE 1 day blood pressure monitor Automatic, Digital. Dx: I10. Daily As directed, 999 days/lifetime blood sugar diagnostic (FreeStyle Lite Strips) DX: E11.9, test blood sugar 2 times a day, 90 days blood-glucose meter (FreeStyle Lite Meter kit) DX: E11.9, test blood sugar 2 times a day, duration 999 days cetirizine (All Day Allergy (cetirizine)) 10 mg PO DAILY 90 days flash glucose scanning reader (MazeBolt TechnologiesStyle Law 2 [place]) As directed flash glucose sensor (FreeStyle Law 2 Sensor kit) 28 day supply fluticasone propionate 50 mcg/actuation (Flonase Allergy Relief) 1 spray intranasal Q12H 30 days gabapentin 300 mg PO BID 30 days hydrocortisone 2.5% (Proctosol HC) 1 appl CO BID-QID PRN insulin glargine (Lantus Solostar U-100 Insulin) 50 units (0.5 mL) subcut QPM 90 days lancets (FreeStyle Lancets) As directed lisinopril-hydrochlorothiazide 20-12.5 mg 1 tab PO DAILY 90 days meloxicam 15 mg PO DAILY 30 days metformin 500 mg PO BID 90 days pen needle, diabetic DX: E11.9, daily As directed to treat blood sugar, 90 day supply polyethylene glycol 3350 (Miralax) 238 grams PO ONCE pseudoephedrine HCl 60 mg PO Q6H PRN 5 days sildenafil 50 mg PO DAILY PRN 30 days trazodone 50 mg PO BEDTIME 30 days Tobacco use date assessed: 03/19/24 Dental Screening Dental Screen Date: 10/21/24 HPI f/u labs HPI Details 64 y/o male presents to f/u labs. Had been having issues with stiffness of his hands/feet. Labs drawn 10/23/24. Reviewed labs with pt. Fasting glucose of 127. A1c 5.3%. Triglycerides 156. TC 163. LDL improved from 126 to 95. HDL low at 37. Reports ongoing stiffness of his hands/feet. HPI Comments History of Present Illness Details Documentation assistance for Mic Cordero MD, was provided by Sheldon Nicholas,? Publications Production Supervisor on 11/04/2024 at 10:49 AM EST. I, Dr. Cordero, have read, observed, and verified documentation. [facility] Medical History (Updated 10/21/24 @ 16:38 by Sheldon Nicholas) Elevated cholesterol Anxiety and depression Hepatitis C History of stroke Degenerative joint disease of hand Carpal tunnel syndrome on both sides Asthma Intracranial hemorrhage Diabetes mellitus HTN (hypertension) Surgical History Hx of elbow surgery Hx of carpal tunnel repair Hx of cystoscopy Hx of cystoscopy History of esophagogastroduodenoscopy (EGD) Hx of cholecystectomy History of tonsillectomy History of colonoscopy Family History Father HTN (hypertension) CVD (cardiovascular disease) Diabetes mellitus Mother HTN (hypertension) CVD (cardiovascular disease) Diabetes mellitus Sister No problems noted. Sister No problems noted. Sister Breast cancer Son No problems noted. Social History (Updated 03/19/24 @ 09:29 by Ramses Lincoln [facility] Household Members: Spouse Housing: Apartment Are you a primary youth career specialist to a significant other at home: No Do you presently have visiting nurse or other home services: No 75 years or older and lives alone: No Alcohol intake: current Alcohol intake frequency: holidays/special occasions only Comment: counts correct Patient Tobacco Use Status: Former Tobacco user Tobacco use type: Cigarette Cigarettes Per Day: 10 Years Smoked: 2 e-Cigarette/Vaping Use: Never Used Second Hand Smoke Exposure: No Special florencia needs: No Agree to transfusion: Yes service: No 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al status: disabled 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 1. Little interest or pleasure in doing things: not at all 2. Feeling down, depressed, or hopeless: not at all 3. Trouble falling or staying asleep, or sleeping too much: not at all 4. Feeling tired or having little energy: not at all 5. Poor appetite or overeating: not at all 6. Feeling bad about yourself - or that you are a failure or have let yourself or your family down: not at all 7. Trouble concentrating on things, such as reading the newspaper or watching television: not at all 8. Moving or speaking so slowly that other people could have noticed. Or the opposite - being so fidgety or restless that you have been moving around a lot more than usual: not at all Depression Screening Interpretation: Negative Depression Screening Done: Yes 80499 - PHQ-9 Billing: Yes Source: Developed by Drs. Erik Napoles, Genie Hernandez, Stew Edge and colleagues, with an educational sami from [employer]. Thrive Questionnaire Date Thrive assessed: 11/04/24 I am a: Patient What is your living situation today?: I have a steady place to live Within the past 12 months, did the food you bought not last and you didn't have the money to get more?: Often true Within the past 12 months, did you worry whether your food would run out before you got money to buy more?: Often true Do you have trouble paying for medicines?: No Do you have trouble getting transportation to medical appointments?: No Do you have trouble paying your heating and electricity bill?: I choose not to answer this question Do you have trouble taking care of your child, family member or friend?: No Do you have trouble with day-to-day activities such as bathing, preparing meals, shopping, managing finances, etc.?: Yes Are you currently unemployed and looking for a job?: No Are you interested in more education?: No Please select the resources that you would like help with: Food Currently or been in a relationship where the following occur: No concerns reported THRIVE Score: 2 RIKI-7 AMB Questionnaire RIKI-7 Date RIKI - 7 assessed: 11/04/24 Feeling nervous, anxious, or on edge: 0 = Not at all Not being able to stop or control worryin = Not at all Worrying too much about different things: 0 = Not at all Trouble relaxin = Not at all Being so restless that it is hard to sit still: 0 = Not at all Becoming easily annoyed or irritable: 3 = Nearly every day Feeling afraid as if something awful might happen: 0 = Not at all Total RIKI-7 score (0-4 normal; 5-9 mild; 10-14 moderate; 15-21 severe): 3 Source: Developed by Drs. Erik Napoles, Genie Hernandez, Stew Edge and colleagues, with an educational sami from [employer]. RIKI-7 Assessment Billing RIKI-7 Assessment Tool: RIKI-7 Assessment 77934 Review of Systems Const Denies chills, Denies fatigue, Denies fever(s), Denies headache(s) and Denies weakness ENT Denies dizziness and Denies headache(s) Card Denies dyspnea Resp Denies cough, Denies dyspnea, Denies wheezing and Denies other (shortness of breath) Musc Denies numbness and Denies tingling Neuro Denies dizziness, Denies headache(s), Denies numbness, Denies tingling and Denies weakness Psych Denies anxiety and Denies depression Endo Denies fatigue Aller/Immun Denies wheezing Physical exam (Primary Care) Vital Signs: Last Vital Signs Temp 97.5 F 11/04/24 10:34 Pulse 76 11/04/24 10:34 Resp 16 11/04/24 10:34 BP 136/60 11/04/24 10:34 Pulse Ox 98 11/04/24 10:34 Oxygen Delivery Method Room Air 11/04/24 10:34 BMI result Body Mass Index 22.9 Tobacco/Smoking Status: Tobacco use Status Tobacco use date assessed 03/19/24 11/04/24 10:28 Patient Tobacco Use Status Former Tobacco user 11/04/24 10:28 Tobacco use type Cigarette 11/04/24 10:28 e-Cigarette/Vaping Use Never Used 11/04/24 10:28 Depression Screening Interpretation: Negative Thrive Assessment: Date of Thrive Assessment Date Thrive assessed 11/04/24 11/04/24 10:37 Currently or been in a relationship where the following occur: No concerns reported Const General: well developed; No acute distress Nutritional Appearance: well nourished Orientation/consciousness: patient oriented x3 HENMT Head: Yes normocephalic and Yes atraumatic Eyes General: appearance normal, both eyes and all related structures Pupils: Equal, round and reactive pupils present EOM: EOMs intact bilaterally Resp Effort & Inspection: normal respiratory effort Neuro General: patient oriented x3 and gait normal Cranial nerves: Yes Equal, round and reactive pupils present Psych Affect: normal affect Coding Level of Care Code Est Pt Level 4 (27609) Diagnoses Stiffness of joints of both hands M25.641; M25.642 Diabetes mellitus E11.9 Essential hypertension I10 Hyperlipidemia E78.5 Erectile dysfunction N52.9 Additional Codes RIKI-7 Assessment Billing - RIKI-7 Assessment Tool: RIKI-7 Assessment 58068 ([id number]) PHQ-9 - 20216 - PHQ-9 Billing: Yes ([id number]) Assessment & Plan Assessment & Plan (1) Stiffness of joints of both hands: Code(s): M25.641 - Stiffness of right hand, not elsewhere classified; M25.642 - Stiffness of left hand, not elsewhere classified Category: Medical Plan: Erythema,?joint?deformity?and?stiffness?in?bilateral?hands. Lab?workup?is?unremarkable?however?x-ray suspicious?for?rheumatoid?arthritis vs Sceroderma. Referred?to?Rheumatology (2) Diabetes mellitus: Code(s): E11.9 - Type 2 diabetes mellitus without complications Category: Medical Plan: A1c?is?controlled.??Goal?is?less?than?7.0% Continue?current?medication (3) Essential hypertension: Code(s): I10 - Essential (primary) hypertension Category: Medical Plan: Blood?pressure?is?controlled.??Goal?is?less?than?140/90 (4) Hyperlipidemia: Code(s): E78.5 - Hyperlipidemia, unspecified Category: Medical Plan: Patient?is?not?taking?atorvastatin.??He?is?at?goal - ?LDL?goal?is?less?than?100. HDL?mildly?low?and?patient?has?not?been?able?exercise?much?due?to?joint?problems. Will?continue?to?monitor He?can?discontinue?atorvastatin (5) Erectile dysfunction: Code(s): N52.9 - Male erectile dysfunction, unspecified Category: Medical Plan: Check?testosterone Trial?sildenafil Orders: Orders Testosterone, Free/Total Today N52.9 - Male erectile dysfunction, unspecified Referrals Rheumatology Referral M25.641 - Stiffness of right hand, not elsewhere classified, M25.642 - Stiffness of left hand, not elsewhere classified Medications: New sildenafil administer 30 minutes to 4 hours before activity 50 mg PO DAILY 30 days PRN 6 tabs 3RF sexual activity meloxicam 15 mg PO DAILY 30 days 30 tabs 2RF Discontinued atorvastatin Discontinued Reason: Doctor's Order 20 mg PO BEDTIME 90 days 90 tabs 2RF
[2024-11-04 10:34] VITALS: BP 136/60; PULSE 76; RESP 16; TEMP 36.4; O2SAT 98; BMI 22.9
--- OUTSIDE RECORDS SUMMARY | 2024-11-04 11:39 | XMS_ITS | Clinical Summary ---
Author Organization [facility] [employer] [facility] Address [address] [place] [address] Care Team Providers Care Gluing Crew Leader Name Role Phone Unavailable Primary Care Provider [...] Most Recently Relevant to Health Maintenance Insurance [facility] MEDICAID STAND ADULT
== END 2024-11-04 11:01 | disposition home or self-care (01) ==
LOC: HO.HMCFM 10:21
PROVIDERS: PCP Family Medicine; Visit Provider Family Medicine
DX: M25.641 Stiffness of right hand, not elsewhere classified (principal); M25.642 Stiffness of left hand, not elsewhere classified; E11.9 Type 2 diabetes mellitus without complications; I10 Essential (primary) hypertension; E78.5 Hyperlipidemia, unspecified; N52.9 Male erectile dysfunction, unspecified

== ENCOUNTER → 2024-11-04 10:20 | Outpatient (BNVA) | payer OTHER, SELFPAY | PROVIDERS: PCP Family Medicine; Visit Provider Family Medicine | DX: M25.641 Stiffness of right hand, not elsewhere classified (principal); M25.642 Stiffness of left hand, not elsewhere classified; E11.9 Type 2 diabetes mellitus without complications; I10 Essential (primary) hypertension; E78.5 Hyperlipidemia, unspecified; N52.9 Male erectile dysfunction, unspecified | CPT/HCPCS: 96127; 99212 ==

== ENCOUNTER 2024-11-14 09:40 | Outpatient (REF) | payer OTHER, SELFPAY ==
[2024-11-14 11:59] LABS: Appearance Urine Clear; Color Urine Yellow; Glucose Urine UA 250 mg/dL (Negative); Leukocyte Esterase Urine Negative (Negative); Nitrite Urine Negative (Negative); PH 5.5 (5.0-9.0); Specific Gravity - Urine 1.015 (1.005-1.025); UMIC TRIGGER UA YES; Urine Blood Small (1+) (Negative); Urine Ketones Negative (Negative); Urine Protein Trace mg/dL (Neg-Trace)
[2024-11-14 12:05] LABS: Cholesterol 165 mg/dL (<200); HDL Cholesterol 45 mg/dL (>40); LDL Cholesterol Calculated 65 mg/dL (<100); Triglycerides 276 mg/dL (<150)
[2024-11-14 12:12] LABS: Bacteria Urine None Seen (None Seen); Hyaline Casts Urine 0-2 /LPF (0-2); Squamous Epithelial Cell Urine 0-2 /HPF (0-2); WBC Urine 0-5 /HPF (0-5)
[2024-11-20 15:58] LABS: Testosterone, Free 41.2 pg/mL (35.0-155.0); Testosterone, Total 396 ng/dL (250-1100)
== END 2024-11-14 09:41 | disposition home or self-care (01) ==
LOC: HO.HMGCLDS 09:40
PROVIDERS: PCP Family Medicine; Visit Provider Family Medicine
DX: Z00.00 Encounter for general adult medical examination without abnormal findings (principal); E78.5 Hyperlipidemia, unspecified; N52.9 Male erectile dysfunction, unspecified
CPT/HCPCS: 36415; 80061; 81001; 81003; 84402; 84403

== ENCOUNTER 2024-12-10 10:21 | Outpatient (AMB) | payer OTHER, SELFPAY ==
--- NOTE | 2024-12-10 10:29 | MHC.PC.OV ---
Vital Signs 12/10/24 10:31 Height 6 ft 6 in Weight 205 lb 8 oz BMI 23.7 BP 110/60 Blood Pressure Location Lt brachial Position Sitting Respiration 14 Pulse 76 Pulse Source Pulse Oximeter Temp 97.9 F Temp Source Oral Pulse Oximetry (%) 99 Oxygen Delivery Method Room Air Intake Visit Reasons: f/u joint stiffness Intake Note: patient is scheduled for bilateral hand pain and lab review Manager Procurement Required: No Allergies aspirin [ASPIRIN] Allergy (Intermediate, Verified 12/10/24 10:30) ITCH Medication List - Last Reconciled 12/10/24 by Mic Cordero MD bisacodyl (Dulcolax (bisacodyl)) 20 mg (4 x 5 mg) PO ONCE 1 day blood pressure monitor Automatic, Digital. Dx: I10. Daily As directed, 999 days/lifetime blood sugar diagnostic (FreeStyle Lite Strips) DX: E11.9, test blood sugar 2 times a day, 90 days blood-glucose meter (FreeStyle Lite Meter kit) DX: E11.9, test blood sugar 2 times a day, duration 999 days cetirizine (All Day Allergy (cetirizine)) 10 mg PO DAILY 90 days flash glucose scanning reader ([employer] Law 2 [place]) As directed flash glucose sensor (FreeStyle Law 2 Sensor kit) 28 day supply fluticasone propionate 50 mcg/actuation (Flonase Allergy Relief) 1 spray intranasal Q12H 30 days folic acid 1 mg PO DAILY 90 days gabapentin 300 mg PO BID 30 days hydrocortisone 2.5% (Proctosol HC) 1 appl NE BID-QID PRN insulin glargine (Lantus Solostar U-100 Insulin) 50 units (0.5 mL) subcut QPM 90 days lancets (FreeStyle Lancets) As directed lisinopril-hydrochlorothiazide 20-12.5 mg 1 tab PO DAILY 90 days meloxicam 15 mg PO DAILY 30 days metformin 500 mg PO BID 90 days methotrexate sodium 10 mg PO QWEEK 28 days pen needle, diabetic DX: E11.9, daily As directed to treat blood sugar, 90 day supply polyethylene glycol 3350 (Miralax) 238 grams PO ONCE pseudoephedrine HCl 60 mg PO Q6H PRN 5 days sildenafil 50 mg PO DAILY PRN 30 days Tobacco use date assessed: 03/19/24 Dental Screening Dental Screen Date: 10/21/24 HPI f/u joint stiffness HPI Details 64 y/o male presents to f/u joint stiffness, bilateral hand pain. Had referred him to rheumatology. Trialing meloxicam. Lab workup was unremarkable though x-ray suspicious for rheumatoid arthritis vs sceroderma. Pt reports ongoing stiffness of his hands/feet. He has an appt. with rheumatology in July. He has been using ibuprofen/tylenol for relief. [facility] Medical History (Updated 10/21/24 @ 16:38 by Sheldon Nicholas) Elevated cholesterol Anxiety and depression Hepatitis C History of stroke Degenerative joint disease of hand Carpal tunnel syndrome on both sides Asthma Intracranial hemorrhage Diabetes mellitus HTN (hypertension) Surgical History Hx of elbow surgery Hx of carpal tunnel repair Hx of cystoscopy Hx of cystoscopy History of esophagogastroduodenoscopy (EGD) Hx of cholecystectomy History of tonsillectomy History of colonoscopy Family History Father HTN (hypertension) CVD (cardiovascular disease) Diabetes mellitus Mother HTN (hypertension) CVD (cardiovascular disease) Diabetes mellitus Sister No problems noted. Sister No problems noted. Sister Breast cancer Son No problems noted. Social History (Updated 03/19/24 @ 09:29 by Ramses Lincoln [facility]) Household Members: Spouse Housing: Apartment Are you a primary healthcare architect to a significant other at home: No Do you presently have visiting nurse or other home services: No Alcohol intake: current Alcohol intake frequency: holidays/special occasions only Comment: counts correct Patient Tobacco Use Status: Former Tobacco user Tobacco use type: Cigarette Cigarettes Per Day: 10 Years Smoked: 2 e-Cigarette/Vaping Use: Never Used Second Hand Smoke Exposure: No Special florencia needs: No Agree to transfusion: Yes service: No 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al status: disabled 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al exposures/hazards: No Sexual orientation: Straight/Heterosexual Gender identity: Male Cognitive needs: No Hearing needs: No Vision needs: No Questionnaire Thrive Questionnaire Date Thrive assessed: 08/21/24 I am a: Patient What is your living situation today?: I have a steady place to live Within the past 12 months, did the food you bought not last and you didn't have the money to get more?: Often true Within the past 12 months, did you worry whether your food would run out before you got money to buy more?: Often true Do you have trouble paying for medicines?: No Do you have trouble getting transportation to medical appointments?: No Do you have trouble paying your heating and electricity bill?: I choose not to answer this question Do you have trouble taking care of your child, family member or friend?: No Do you have trouble with day-to-day activities such as bathing, preparing meals, shopping, managing finances, etc.?: Yes Are you currently unemployed and looking for a job?: No Are you interested in more education?: No Please select the resources that you would like help with: Food Currently or been in a relationship where the following occur: No concerns reported THRIVE Score: 2 RIKI-7 AMB Questionnaire RIKI-7 Date RIKI - 7 assessed: 11/04/24 Source: Developed by Drs. Erik Napoles, Genie Hernandez, Stew Edge and colleagues, with an educational sami from [employer]. Review of Systems Const Denies chills, Denies fatigue, Denies fever(s), Denies headache(s) and Denies weakness ENT Denies dizziness and Denies headache(s) Card Denies dyspnea Resp Denies cough, Denies dyspnea, Denies wheezing and Denies other (shortness of breath) Musc Denies numbness and Denies tingling Neuro Denies dizziness, Denies headache(s), Denies numbness, Denies tingling and Denies weakness Psych Denies anxiety and Denies depression Endo Denies fatigue Aller/Immun Denies wheezing Physical exam (Primary Care) Vital Signs: Last Vital Signs Temp 97.9 F 12/10/24 10:31 Pulse 76 12/10/24 10:31 Resp 14 12/10/24 10:31 BP 110/60 12/10/24 10:31 Pulse Ox 99 12/10/24 10:31 Oxygen Delivery Method Room Air 12/10/24 10:31 BMI result Body Mass Index 23.7 Tobacco/Smoking Status: Tobacco use Status Tobacco use date assessed 03/19/24 12/10/24 10:29 Patient Tobacco Use Status Former Tobacco user 12/10/24 10:29 Tobacco use type Cigarette 12/10/24 10:29 e-Cigarette/Vaping Use Never Used 12/10/24 10:29 Thrive Assessment: Date of Thrive Assessment Date Thrive assessed 08/21/24 12/10/24 10:29 Currently or been in a relationship where the following occur: No concerns reported Const General: well developed; No acute distress Nutritional Appearance: well nourished Orientation/consciousness: patient oriented x3 HENMT Head: Yes normocephalic and Yes atraumatic Eyes General: appearance normal, both eyes and all related structures Pupils: Equal, round and reactive pupils present EOM: EOMs intact bilaterally Resp Effort & Inspection: normal respiratory effort Neuro General: patient oriented x3 and gait normal Cranial nerves: Yes Equal, round and reactive pupils present Psych Affect: normal affect Coding Level of Care Code Est Pt Level 4 (23390) Diagnoses Stiffness of joints of both hands M25.641; M25.642 Erectile dysfunction N52.9 Essential hypertension I10 Assessment & Plan Assessment & Plan (1) Stiffness of joints of both hands: Code(s): M25.641 - Stiffness of right hand, not elsewhere classified; M25.642 - Stiffness of left hand, not elsewhere classified Category: Medical Plan: Severe?and?worsening?stiffness?in?bilateral?hands?with?increasing?disability Imaging?suggests?possible?scleroderma?or?rheumatoid?arthritis?though?rheumatoid?factor?is?negative. Had?referred?him?to?Rheumatology?and?they?gave?him?an?appointment?in?July. Will?ask?for?a?sooner?appointment Will?start?a?trial?of?methotrexate?and?folic?acid. Will?monitor?liver?enzyme Will?get?him?back?in?1?month?to?ensure?he?has?a?sooner?appointment?with?rheumatology (2) Erectile dysfunction: Code(s): N52.9 - Male erectile dysfunction, unspecified Category: Medical Plan: Referred?to?urology (3) Essential hypertension: Code(s): I10 - Essential (primary) hypertension Category: Medical Plan: BP controlled. Goal < 140/90 Cont current medication Orders: Orders Erythrocyte Sedimentation Rate Today M25.641 - Stiffness of right hand, not elsewhere classified, M25.642 - Stiffness of left hand, not elsewhere classified Comprehensive Met. Panel Today M25.641 - Stiffness of right hand, not elsewhere classified, M25.642 - Stiffness of left hand, not elsewhere classified CRP High Sensitivity Today M25.641 - Stiffness of right hand, not elsewhere classified, M25.642 - Stiffness of left hand, not elsewhere classified Scleroderma 70 Antibody Today M25.641 - Stiffness of right hand, not elsewhere classified, M25.642 - Stiffness of left hand, not elsewhere classified Anti-Centromere B Antibodies Today M25.641 - Stiffness of right hand, not elsewhere classified, M25.642 - Stiffness of left hand, not elsewhere classified Complete Blood Count Auto Diff Today Z00.00 - Encounter for general adult medical examination without abnormal findings Vitamin B12 and Folate Today E53.8 - Deficiency of other specified B group vitamins, M25.641 - Stiffness of right hand, not elsewhere classified, M25.642 - Stiffness of left hand, not elsewhere classified Referrals Urology Referral N52.9 - Male erectile dysfunction, unspecified Medications: New folic acid 1 mg PO DAILY 90 tabs 2RF 90 days methotrexate sodium 10 mg PO QWEEK 4 tabs 2RF 28 days
[2024-12-10 10:31] VITALS: BP 110/60; PULSE 76; RESP 14; TEMP 36.6; O2SAT 99; BMI 23.7
--- OUTSIDE RECORDS SUMMARY | 2024-12-10 12:09 | XMS_ITS | Clinical Summary ---
Author Organization [facility] Address [address] [place] [address] Care Team Providers Care Kelp Gatherer Name Role Phone Unavailable Primary Care Provider [...] Panel 1962 SDOH Screening 1960 Sigmoidoscopy 1962 Disability Screening 1962 Alcohol/Substance Use Screening 1974 Hepatitis C Screening 1980 Zoster Vaccines (1 of 2) 2012 Pneumococcal Vaccine: 50+ Years (2 of 2 - PCV) 01/06/2013 01/07/2012 Hepatitis B Vaccines (2 of 3 - 19+ 3-dose series) 04/09/2023 03/12/2023, 06/23/2010, 03/07/2010, Additional history exists Dental Oral Exam 11/07/2023 05/08/2023 COVID-19 Vaccine ( season) 2024 Dental X-Ray: Bitewings 05/09/2024 05/08/2023 Tobacco Screening 09/03/2024 09/03/2023 Influenza Vaccine (Season Ended) 2025 09/01/2020, 05/05/2019, 05/19/2018, Additional history exists Dental X-Ray: Full Mouth 05/09/2026 05/08/2023 DTaP/Tdap/Td [...] patient's age to complete this topic Meningococcal B Vaccine Aged Out No l onger eligible based on patient's age to complete [...] Most Recently Relevant to Health Maintenance Insurance [facility] MEDICAID STAND ADULT
== END 2024-12-10 10:52 | disposition home or self-care (01) ==
LOC: HO.HMCFM 10:22
PROVIDERS: PCP Family Medicine; Visit Provider Family Medicine
DX: M25.641 Stiffness of right hand, not elsewhere classified (principal); M25.642 Stiffness of left hand, not elsewhere classified; N52.9 Male erectile dysfunction, unspecified; I10 Essential (primary) hypertension

== ENCOUNTER → 2024-12-10 10:21 | Outpatient (BNVA) | payer OTHER, SELFPAY | PROVIDERS: PCP Family Medicine; Visit Provider Family Medicine | DX: Z13.89 Encounter for screening for other disorder (principal) | CPT/HCPCS: 99212 ==

== ENCOUNTER 2024-12-10 10:58 | Outpatient (REF) | payer OTHER, SELFPAY ==
[2024-12-10 14:15] LABS: MANUAL DIFF FLAG NO
[2024-12-10 14:25] LABS: Basophils Absolute Auto 0.1 X10*3/uL (0.0-0.2); Basophils Percent Auto 0.6 % (0-2); Eosinophils Absolute Auto 0.4 X10*3/uL (0.0-0.4); Eosinophils Percent Auto 4.9 % (0-4); Hematocrit 44.3 % (42.0-52.0); Hemoglobin 14.7 g/dl (14.0-18.0); Imm Gran Abs Auto 0.03 X10*3/uL (0.00-0.03); Imm Gran Pct Auto 0.4 % (0.0-0.4); Lymphocytes Percent Auto 36.7 % (20-40); Mean Corpuscular HGB Conc 33.2 g/dl (31.0-36.0); Mean Corpuscular Hemoglobin 30.1 pg (27.0-33.0); Mean Corpuscular Volume 90.8 fL (80.0-98.0); Mean Platelet Volume 10.1 fL (9.4-12.4); Monocytes Absolute Auto 0.9 X10*3/uL (0.1-1.2); Neutrophils Absolute Auto 3.8 x10*3/uL (2.0-8.3); Neutrophils Percent Auto 46.4 % (45-73); Platelet Count 235 X10*3/uL (160-400); Red Blood Count 4.88 X10*6/uL (4.60-5.80); Red Cell Distribution Width 13.2 % (11.0-16.0); White Blood Count 8.2 X10*3/uL (4.8-10.8)
[2024-12-10 14:57] LABS: Alanine Aminotransferase 27 U/L (0-40); Albumin Level 4.4 g/dL (3.5-5.0); Alkaline Phosphatase 65 U/L (39-117); Anion Gap 9 (12-20); Aspartate Amino Transferase 40 U/L (5-37); Bilirubin Total 0.6 mg/dL (0.0-1.0); Blood Urea Nitrogen 28 mg/dL (9-16); Carbon Dioxide 28 mmol/L (22-29); Chloride 105 mmol/L (96-108); Estimated Glomerular Filt Rate > 60; Glucose Random 103 mg/dL (60-115); Potassium 4.3 mmol/L (3.3-5.1); Sodium 138 mmol/L (135-145); Total Protein 7.9 g/dL (6.5-8.0)
[2024-12-10 14:58] LABS: Appearance Urine Clear; Color Urine Yellow; Glucose Urine UA 250 mg/dL (Negative); Leukocyte Esterase Urine Negative (Negative); Nitrite Urine Negative (Negative); UMIC TRIGGER UA YES; Urine Blood Trace (Negative); Urine Ketones Trace mg/dL (Negative); Urine Protein Negative (Neg-Trace)
[2024-12-10 15:04] LABS: Erythrocyte Sedimentation Rate 7 MM/HR (0-15)
[2024-12-10 15:05] LABS: Bacteria Urine None Seen (None Seen); Hyaline Casts Urine 0-2 /LPF (0-2); Squamous Epithelial Cell Urine 0-2 /HPF (0-2); WBC Urine 0-5 /HPF (0-5)
[2024-12-10 15:21] LABS: Folate 5.8 ng/mL (> or = 4.0); Vitamin B12 363 pg/mL (200-900)
[2024-12-11 06:39] LABS: CRP High Sensitivity 1.5 mg/L
[2024-12-11 21:34] LABS: Anti-Centromere B Antibodies <1.0 NEG AI (<1.0 NEG); Scleroderma 70 Antibody <1.0 NEG AI (<1.0 NEG)
== END 2024-12-10 10:59 | disposition home or self-care (01) ==
LOC: HO.WFDLDS 10:58
PROVIDERS: Visit Provider Family Medicine
DX: M25.641 Stiffness of right hand, not elsewhere classified (principal); M25.642 Stiffness of left hand, not elsewhere classified; N52.9 Male erectile dysfunction, unspecified; I10 Essential (primary) hypertension; Z00.00 Encounter for general adult medical examination without abnormal findings; E53.8 Deficiency of other specified B group vitamins
CPT/HCPCS: 36415; 80053; 81001; 82607; 82746; 85025; 85652; 86141; 86235; 99212

== ENCOUNTER 2025-04-21 15:34 | Outpatient (AMB) | payer OTHER, SELFPAY ==
--- NOTE | 2025-04-21 15:42 | A.OFFPC_ITS ---
Vital Signs 04/21/25 15:49 Height 6 ft 6 in Weight 214 lb BMI 24.7 BP 162/92 H Blood Pressure Location Rt brachial Position Sitting Respiration 14 Pulse 77 Pulse Source Pulse Oximeter Temp 98.3 F Temp Source Temporal Artery Scan Pulse Oximetry (%) 95 Oxygen Delivery Method Room Air Intake Visit Reasons: f/u joint stiffness Intake Note: Arvind presents in the office today for stiff joints. Allergies aspirin (ASPIRIN) Allergy (Intermediate, Verified 04/21/25 15:45) ITCH Medication List - Last Reconciled 04/21/25 by Mic Cordero MD blood pressure monitor Automatic, Digital. Dx: I10. Daily As directed, 999 days/lifetime blood sugar diagnostic (FreeStyle Lite Strips) DX: E11.9, test blood sugar 2 times a day, 90 days blood-glucose meter (FreeStyle Lite Meter kit) DX: E11.9, test blood sugar 2 times a day, duration 999 days cetirizine (All Day Allergy (cetirizine)) 10 mg PO DAILY 90 days flash glucose scanning reader (FreeStyle Law 2 [place]) As directed flash glucose sensor (FreeStyle Law 2 Sensor kit) 28 day supply folic acid 1 mg PO DAILY 90 days gabapentin 300 mg PO BID 30 days insulin glargine (Lantus Solostar U-100 Insulin) 50 units (0.5 mL) subcut QPM 90 days lancets (FreeStyle Lancets) As directed lisinopril-hydrochlorothiazide 20-12.5 mg 1 tab PO DAILY 90 days meloxicam 15 mg PO DAILY 30 days metformin 500 mg PO BID 90 days pen needle, diabetic DX: E11.9, daily As directed to treat blood sugar, 90 day supply valacyclovir 500 mg PO BID 14 days Tobacco use date assessed: 04/21/25 Dental Screening Dental Screen Date: 04/21/25 Did you have a dental visit in the last 12 months?: No Did you have a dental problem in the last 6 months where you did not have access to dental care?: No Was dental information given to patient?: Patient declined HPI f/u joint stiffness HPI Details 64 y/o male presents to f/u bilateral benoit nd stiffness. Had sent a script for methotrexate. Started pt on folic acid. Labs drawn 12/10/24. Reviewed labs with pt. AST 40. CBC was fine. A1c today 04/21/25 5.3%. He is on metformin 500mg b.i.d. BP today 162/92, 77p. He is on lisinopril-HCTZ 20-12.5mg daily. Has an appt. with rheumatology in July. [facility] Medical History (Updated 10/21/24 @ 16:38 by Sheldon Nicholas) Elevated cholesterol Anxiety and depression Hepatitis C History of stroke Degenerative joint disease of hand Carpal tunnel syndrome on both sides Asthma Intracranial hemorrhage Diabetes mellitus HTN (hypertension) Surgical History Hx of elbow surgery Hx of carpal tunnel repair Hx of cystoscopy Hx of cystoscopy History of esophagogastroduodenoscopy (EGD) Hx of cholecystectomy History of tonsillectomy History of colonoscopy Family History (Updated 04/21/25 @ 15:48 by Kenzie Fitzpatrick CMA) Father HTN (hypertension) CVD (cardiovascular disease) Diabetes mellitus Mother HTN (hypertension) CVD (cardiovascular disease) Diabetes mellitus Sister No problems noted. Sister No problems noted. Sister Breast cancer Son No problems noted. Social History (Updated 04/21/25 @ 15:49 by Kenzie Fitzpatrick CMA) Household Members: Spouse Housing: Apartment Are you a primary ocular care technician to a significant other at home: No Do you presently have visiting nurse or other home services: No 75 years or older and lives alone: No Alcohol intake: current Alcohol intake frequency: holidays/special occasions only Comment: counts correct Patient Tobacco Use Status: Former Tobacco user Tobacco use type: Cigarette Cigarettes Per Day: 10 Years Smoked: 2 e-Cigarette/Vaping Use: Never Used Second Hand Smoke Exposure: No Special florencia needs: No Agree to transfusion: Yes service: No 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al status: disabled 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al exposures/hazards: No Sexual orientation: Straight/Heterosexual Gender identity: Male Cognitive needs: No Hearing needs: No Vision needs: No Questionnaire Thrive Questionnaire Date Thrive assessed: 08/21/24 I am a: Patient What is your living situation today?: I have a steady place to live Within the past 12 months, did the food you bought not last and you didn't have the money to get more?: Often true Within the past 12 months, did you worry whether your food would run out before you got money to buy more?: Often true Do you have trouble paying for medicines?: No Do you have trouble getting transportation to medical appointments?: No Do you have trouble paying your heating and electricity bill?: I choose not to answer this question Do you have trouble taking care of your child, family member or friend?: No Do you have trouble with day-to-day activities such as bathing, preparing meals, shopping, managing finances, etc.?: Yes Are you currently unemployed and looking for a job?: No Are you interested in more education?: No Please select the resources that you would like help with: Food Currently or been in a relationship where the following occur: No concerns reported THRIVE Score: 2 RIKI-7 AMB Questionnaire RIKI-7 Date RIKI - 7 assessed: 11/04/24 Source: Developed by Drs. Erik Napoles, Genie Hernandez, Stew Edge and colleagues, with an educational sami from [employer]. Review of Systems Const Denies chills, Denies fatigue, Denies fever(s), Denies headache(s) and Denies weakness ENT Denies dizziness and Denies headache(s) Card Denies dyspnea Resp Denies cough, Denies dyspnea, Denies wheezing and Denies other (shortness of breath) Musc Denies numbness and Denies tingling Neuro Denies dizziness, Denies headache(s), Denies numbness, Denies tingling and Denies weakness Psych Denies anxiety and Denies depression Endo Denies fatigue Aller/Immun Denies wheezing Physical exam (Primary Care) Vital Signs: Last Vital Signs Temp 98.3 F 04/21/25 15:49 Pulse 77 04/21/25 15:49 Resp 14 04/21/25 15:49 BP 162/92 H 04/21/25 15:49 Pulse Ox 95 04/21/25 15:49 Oxygen Delivery Method Room Air 04/21/25 15:49 BMI result Body Mass Index 24.7 Tobacco/Smoking Status: Tobacco use Status Tobacco use date assessed 04/21/25 04/21/25 15:54 Patient Tobacco Use Status Former Tobacco user 04/21/25 15:49 Tobacco use type Cigarette 04/21/25 15:49 e-Cigarette/Vaping Use Never Used 04/21/25 15:49 Thrive Assessment: Date of Thrive Assessment Date Thrive assessed 08/21/24 04/21/25 15:44 Currently or been in a relationship where the following occur: No concerns r eported Const General: well developed; No acute distress Nutritional Appearance: well nourished Orientation/consciousness: patient oriented x3 HENMT Head: Yes normocephalic and Yes atraumatic Eyes General: appearance normal, both eyes and all related structures Pupils: Equal, round and reactive pupils present EOM: EOMs intact bilaterally Resp Effort & Inspection: normal respiratory effort Neuro General: patient oriented x3 and gait normal Cranial nerves: Yes Equal, round and reactive pupils present Psych Affect: normal affect Results AMB Hemoglobin A1c AMB Hemoglobin A1c 5.3 % Last Edit by Kenzie Fitzpatrick CMA on 04/21/25 16:03 Results Reviewed Results Reviewed: Laboratory Last Values Hgb A1c (Clinic) 5.3 % (4.0-6.0) 04/21/25 15:55 Coding Level of Care Code Est Pt Level 4 (39615) Diagnoses Stiffness of joints of both hands M25.641; M25.642 Diabetes mellitus E11.9 Elevated liver enzymes R74.8 Essential hypertension I10 Assessment & Plan Assessment & Plan (1) Stiffness of joints of both hands: Code(s): M25.641 - Stiffness of right hand, not elsewhere classified; M25.642 - Stiffness of left hand, not elsewhere classified Category: Medical (2) Diabetes mellitus: Code(s): E11.9 - Type 2 diabetes mellitus without complications Category: Medical (3) Elevated liver enzymes: Code(s): R74.8 - Abnormal levels of other serum enzymes Category: Medical (4) Essential hypertension: Code(s): I10 - Essential (primary) hypertension Category: Medical Plan Ongoing severe stiffness of bilateral hands with deformity and disability of hands and fingers. Although lab work has been unremarkable, x-ray of hands states Concerning systemic sclerosis versus rheumatoid arthritis... NSAIDs have not been managing this well Trying to avoid using steroids as he has diabetes Had given him a trial of methotrexate and he was to follow-up in 1 month. Patient did not follow-up in 1 month. Pharmacy says they provided medication x1 month. Patient takes medications as prescribed but he is not perfectly aware of what medications he is currently taking - simply takes medications provided by his pharmacy. Not aware if he had improvements with methotrexate. Will hold off on this medication. I referred him to Rheumatology and he still does not have an appointment. Will request appointment amna. Continue meloxicam Blood pressure is too high. Goal is less than 140/90 He will take lisinopril-hydrochlorothiazide 20/12.5 mg; 2 tabs daily A1c 5.3%. Good control. Goal is less than 7% Continue metformin as prescribed Continue Lantus Orders: Orders AMB Hemoglobin A1c Today E11.40 - Type 2 diabetes mellitus with diabetic neuropathy, unspecified, E11.9 - Type 2 diabetes mellitus without complications Medications: Changed From lisinopril-hydrochlorothiazide 20-12.5 mg 1 tab PO DAILY 90 days 90 tabs 3RF To lisinopril-hydrochlorothiazide 20-12.5 mg 2 tabs PO DAILY 180 tabs 3RF 90 days
[2025-04-21 15:49] VITALS: BP 162/92; PULSE 77; RESP 14; TEMP 36.8; O2SAT 95; BMI 24.7
--- OUTSIDE RECORDS SUMMARY | 2025-04-21 19:02 | XMS_ITS | Clinical Summary ---
Author Organization [facility] Address [address] [place] [address] Care Team Providers Care Business Segment Manager Name Role Phone Unavailable Primary Care Provider [...] history exists Dental Oral Exam 11/07/2023 05/08/2023 Dental X-Ray: Bitewings 05/09/2024 05/08/2023 Tobacco Screening 09/03/2024 09/03/2023 COVID-19 Vaccine ( - season) 2025 Influenza Vaccine (#1) 2025 , 05/05/2019, 05/19/2018, Additional history exists Dental [...] Most Recently Relevant to Health Maintenance Insurance [facility] MEDICAID STAND ADULT
== END 2025-04-21 16:29 | disposition home or self-care (01) ==
LOC: HO.HMCFM 15:34
PROVIDERS: PCP Family Medicine; Visit Provider Family Medicine
DX: M25.641 Stiffness of right hand, not elsewhere classified (principal); M25.642 Stiffness of left hand, not elsewhere classified; R74.8 Abnormal levels of other serum enzymes; E11.40 Type 2 diabetes mellitus with diabetic neuropathy, unspecified; I10 Essential (primary) hypertension

== ENCOUNTER → 2025-04-21 15:34 | Outpatient (BNVA) | payer OTHER, SELFPAY | PROVIDERS: PCP Family Medicine; Visit Provider Family Medicine | DX: I10 Essential (primary) hypertension (principal); M25.561 Pain in right knee; M25.562 Pain in left knee; M25.641 Stiffness of right hand, not elsewhere classified; M25.642 Stiffness of left hand, not elsewhere classified; R74.8 Abnormal levels of other serum enzymes; E11.40 Type 2 diabetes mellitus with diabetic neuropathy, unspecified | CPT/HCPCS: 83036; 99212 ==

== ENCOUNTER 2025-04-26 10:19 | Outpatient (AMB) | payer OTHER, SELFPAY ==
--- NOTE | 2025-04-26 10:31 | MHC.OFFVIS ---
Intake Visit Reasons: ED Intake Note: New patient presents today for initial visit for erectile dysfunction Urology Medication:None Blood Thinner:None Antibiotic Allergies:None Allergies aspirin (ASPIRIN) Allergy (Intermediate, Verified 04/26/25 10:32) ITCH Medication List - Last Reconciled 04/27/25 by Heladio Graves MD blood pressure monitor Automatic, Digital. Dx: I10. Daily As directed, 999 days/lifetime blood sugar diagnostic (FreeStyle Lite Strips) DX: E11.9, test blood sugar 2 times a day, 90 days blood-glucose meter (FreeStyle Lite Meter kit) DX: E11.9, test blood sugar 2 times a day, duration 999 days cetirizine (All Day Allergy (cetirizine)) 10 mg PO DAILY 90 days flash glucose scanning reader (FreeStyle Law 2 [place]) As directed flash glucose sensor (FreeStyle Law 2 Sensor kit) 28 day supply folic acid 1 mg PO DAILY 90 days gabapentin 300 mg PO BID 30 days insulin glargine (Lantus Solostar U-100 Insulin) 50 units (0.5 mL) subcut QPM 90 days lancets (FreeStyle Lancets) As directed lisinopril-hydrochlorothiazide 20-12.5 mg 2 tabs PO DAILY 90 days meloxicam 15 mg PO DAILY 30 days metformin 500 mg PO BID 90 days pen needle, diabetic DX: E11.9, daily As directed to treat blood sugar, 90 day supply tadalafil (Cialis) 5 mg PO DAILY 30 days valacyclovir 500 mg PO BID 14 days HPI Comments Details: Josue is a 64 year old here as a new patient evaluation for erectile dysfunction. Comorbidity-diabetes. He states his last hemoglobin A1c was about 5 . He states the symptoms of erectile disorder has been about 2 years. IIEF-5 scoring total score 7. Reviewed labs --11/14/2024-total testosterone 396, free testosterone 41.2 --10/23/2024-PSA-1.37 ng/mL --04/21/2025-hemoglobin A1c 5.3 Plan daily Cialis 5 mg daily. Repeat testosterone and PSA in 4 months. [facility] Medical History Elevated cholesterol Anxiety and depression Hepatitis C History of stroke Degenerative joint disease of hand Carpal tunnel syndrome on both sides Asthma Intracranial hemorrhage Diabetes mellitus HTN (hypertension) Surgical History Hx of elbow surgery Hx of carpal tunnel repair Hx of cystoscopy Hx of cystoscopy History of esophagogastroduodenoscopy (EGD) Hx of cholecystectomy History of tonsillectomy History of colonoscopy Family History Father HTN (hypertension) CVD (cardiovascular disease) Diabetes mellitus Mother HTN (hypertension) CVD (cardiovascular disease) Diabetes mellitus Sister No problems noted. Sister No problems noted. Sister Breast cancer Son No problems noted. Social History Household Members: Spouse Housing: Apartment Are you a primary child care center administrator to a significant other at home: No Do you presently have visiting nurse or other home services: No 75 years or older and lives alone: No Alcohol intake: current Alcohol intake frequency: holidays/special occasions only Comment: counts correct Patient Tobacco Use Status: Former Tobacco user Tobacco use type: Cigarette Cigarettes Per Day: 10 Years Smoked: 2 e-Cigarette/Vaping Use: Never Used Second Hand Smoke Exposure: No Special florencia needs: No Agree to transfusion: Yes service: No 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al status: disabled 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al exposures/hazards: No Sexual orientation: Straight/Heterosexual Gender identity: Male Cognitive needs: No Hearing needs: No Vision needs: No Review of Systems Const All systems reviewed & are unremarkable except as noted in HPI and below Reports no additional complaints Eyes Reports no additional complaints ENT Reports no additional complaints Card Reports no additional complaints Resp Reports no additional complaints GI Reports no additional complaints Reports as per HPI Musc Reports no additional complaints Skin/Breast Reports system reviewed and no additional complaints, except as documented Neuro Reports no additional complaints Psych Reports no additional complaints Endo Reports no additional complaints Suman/Lymph Reports no additional complaints Aller/Immun Reports no additional complaints Physical Exam Const General: healthy appearing, no acute distress and well developed Orientation/consciousness: patient oriented x3 HEENT Head: Yes normocephalic and Yes atraumatic Eyes Conjunctivae: conjunctivae normal Neck Neck: Yes normal visual inspection Chest Chest palpation & inspection: normal inspection of the chest Resp Effort & Inspection: normal respiratory effort GI Inspection: Yes normal to inspection Neuro General: patient oriented x3 Psych Appearance: grossly normal Affect: normal affect Assessment & Plan Assessment & Plan (1) Diabetes mellitus: Code(s): E11.9 - Type 2 diabetes mellitus without complications Category: Medical (2) Erectile dysfunction: Code(s): N52.9 - Male erectile dysfunction, unspecified Category: Medical (3) Low serum testosterone: Code(s): R79.89 - Other specified abnormal findings of blood chemistry Category: Medical Plan Plan daily Cialis 5 mg daily. Repeat testosterone and PSA in 4 months. Patient Instructions: The patient had an opportunity to ask questions regarding treatment plan. The patient expressed understanding and agreement with the above treatment plan. The patient is aware they should contact our office by phone for worsening of their current condition or the appearance of new symptoms. Compliance is encouraged with any medications and followup testing that is ordered. It is a privilege to be allowed the opportunity to participate in the urologic care of your patient. If you have any questions or concerns regarding treatment for the above conditions please do not hesitate to contact me. The office telephone contact is [phone]. This note is constructed in part using voice recognition software. While every effort has been made to ensure accuracy compressor assembler errors may have been included. Yours sincerely, Heladio Graves MD Coding Level of Care Code New Pt Level 4 (98434) Diagnoses Diabetes mellitus E11.9 Erectile dysfunction N52.9 Low serum testosterone R79.89 IIEF-5 Questionnaire IIEF-5 How do you rate your confidence that you could get and keep an erection?: 1-Very Low When you had erections with sexual stimulation, how often were your erections hard enough for penetration?: Almost never/never During sexual intercourse, how often were you able to maintain your erection after your had penetrated(entered) your partner?: Sometimes(about half the time) During sexual intercourse, how difficult was it to maintain your erection to completion of intercourse?: Extremely Difficult When you attempted sexual intercourse, how often was it satisfactory for you?: Almost never/never IIEF-5 Score IIEF-5 Score: 7
== END 2025-04-26 11:07 | disposition home or self-care (01) ==
LOC: HO.HUSH 10:20
PROVIDERS: PCP Family Medicine; Visit Provider Urology
DX: E11.9 Type 2 diabetes mellitus without complications (principal); N52.9 Male erectile dysfunction, unspecified; R79.89 Other specified abnormal findings of blood chemistry
CPT/HCPCS: 99204

== ENCOUNTER → 2025-04-26 10:19 | Outpatient (BNVA) | payer OTHER, SELFPAY | PROVIDERS: PCP Family Medicine; Visit Provider Urology | DX: E11.9 Type 2 diabetes mellitus without complications (principal); N52.9 Male erectile dysfunction, unspecified; R79.89 Other specified abnormal findings of blood chemistry | CPT/HCPCS: 99202 ==

== ENCOUNTER 2025-04-28 13:55 | Outpatient (AMB) | payer OTHER, SELFPAY ==
[2025-04-28 13:57] VITALS: BP 128/78; PULSE 81; O2SAT 95; BMI 24.4
--- NOTE | 2025-04-28 13:57 | A.OFFVIS_ITS ---
Vital Signs 04/28/25 13:57 Height 6 ft 6 in Weight 211 lb 6.773 oz BMI 24.4 BP 128/78 Blood Pressure Location Rt brachial Position Sitting Pulse 81 Pulse Source Pulse Oximeter Pulse Oximetry (%) 95 Oxygen Delivery Method Room Air Intake Visit Reasons: stiff hands Intake Note: Patient is a new patient, internally referred by Dr. Cordero for stiffness of joints in both hands. He states it's been going on for a few years. Patient not taking anything for the pain. 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 Dx: I10. Daily As directed, 999 days/lifetime blood sugar diagnostic (FreeStyle Lite Strips) DX: E11.9, test blood sugar 2 times a day, 90 days blood-glucose meter (FreeStyle Lite Meter kit) DX: E11.9, test blood sugar 2 times a day, duration 999 days cetirizine (All Day Allergy (cetirizine)) 10 mg PO DAILY 90 days flash glucose scanning reader (FreeStyle Law 2 [place]) As directed flash glucose sensor (FreeStyle Law 2 Sensor kit) 28 day supply folic acid 1 mg PO DAILY 90 days gabapentin 300 mg PO BID 30 days insulin glargine (Lantus Solostar U-100 Insulin) 50 units (0.5 mL) subcut QPM 90 days lancets (FreeStyle Lancets) As directed lisinopril-hydrochlorothiazide 20-12.5 mg 2 tabs PO DAILY 90 days meloxicam 15 mg PO DAILY 30 days metformin 500 mg PO BID 90 days pen needle, diabetic DX: E11.9, daily As directed to treat blood sugar, 90 day supply tadalafil (Cialis) 5 mg PO DAILY 30 days valacyclovir 500 mg PO BID 14 days HPI Comments Details: Patient is a 64-year-old male with hypertension complicated by stroke, diabetes complicated by neuropathy, history of hepatitis-C, anxiety/depression and osteoarthritis of the hands here today for evaluation of worsening disability in bilateral hands Patient referred from primary due to worsening disability in bilateral hands [facility] Medical History (Updated 04/28/25 @ 14:53 by Bailee Lindo MD) 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 Elevated cholesterol Anxiety and depression Hepatitis C History of stroke Degenerative joint disease of hand Carpal tunnel syndrome on both sides Asthma Intracranial hemorrhage Diabetes mellitus HTN (hypertension) Surgical History Hx of elbow surgery Hx of carpal tunnel repair Hx of cystoscopy Hx of cystoscopy History of esophagogastroduodenoscopy (EGD) Hx of cholecystectomy History of tonsillectomy History of colonoscopy Family History Father HTN (hypertension) CVD (cardiovascular disease) Diabetes mellitus Mother HTN (hypertension) CVD (cardiovascular disease) Diabetes mellitus Sister No problems noted. Sister No problems noted. Sister Breast cancer Son No problems noted. Social History Household Members: Spouse Housing: Apartment Are you a primary aged or disabled care worker to a significant other at home: No Do you presently have visiting nurse or other home services: No 75 years or older and lives alone: No Alcohol intake: current Alcohol intake frequency: holidays/special occasions only Comment: counts correct Patient Tobacco Use Status: Former Tobacco user Tobacco use type: Cigarette Cigarettes Per Day: 10 Years Smoked: 2 e-Cigarette/Vaping Use: Never Used Second Hand Smoke Exposure: No Special florencia needs: No Agree to transfusion: Yes service: No 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al status: disabled 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al exposures/hazards: No Sexual orientation: Straight/Heterosexual Gender identity: Male Cognitive needs: No Hearing needs: No Vision needs: No Review of Systems Narrative Review of Systems Constitutional: Denies fever, chills, weight loss ENT: Denies vision changes, eye pain or eye redness, dental caries, dry mouth GI: Denies nausea, vomiting, diarrhea, abdominal pain, change in BM Pulm: Denies SOB, MCKENZIE, hemoptysis, wheezing Cards: Denies chest pain, palpitations Skin: Denies Raynaud's, rash, nail changes, photosensitivity, WIRELESS OPERATOR: Denies headaches, weakness, paresthesias, recurrent falls MSK: as per HPI All other systems reviewed and are unremarkable except noted above Physical Exam Exam Exam: Vital signs reviewed Physical Examination CONSTITUITIONAL Patient alert and cooperative. Well appearing and in no apparent painful distress MSK Hands * Right Hand: Able to make a fist. No swelling or tenderness to palpation of the MCPs, PIPs or DIPs. * Left Hand: Able to make a fist. No swelling or tenderness to palpation of the MCPs, PIPs or DIPs. * Skin thickening bilateral hands * Positive prayer sign Wrists * Right Wrist: Full ROM to flexion and extension. No swelling or TTP * Left Wrist: Full ROM to flexion and extension. No swelling or TTP Elbows * Right Elbow: Full ROM. No swelling or TTP. No TTP of the medial epicondyle. No TTP of the lateral epicondyle * Left Elbow: Full ROM. No swelling or TTP. No TTP of the medial epicondyle. No TTP of the lateral epicondyle Shoulders * Right shoulder: Full ROM. No swelling noted. No TTP of the AC joint. No TTP of the subacromial bursa. No TTP of the posterior shoulder * Left shoulder: Full ROM. No swelling noted. No TTP of the AC joint. No TTP of the subacromial bursa. No TTP of the posterior shoulder Knees * Right knee: Full ROM. No swelling noted. No TTP of the knee joint line. No TTP of pes anserine bursa * Left knee: Full ROM. No swelling noted. No TTP of the knee joint line. No TTP of pes anserine bursa. * Crepitations felt bilaterally Ankles * Right ankle: Good ankle dorsiflexion and plantar flexion. No swelling. No TTP of the ankle joint * Left ankle: Good ankle dorsiflexion and plantar flexion. No swelling. No TTP of the ankle joint SKIN Normal nailfold capillaries No skin thickening of the legs, face, upper chest Skin thickening noted to the hands up to the wrists No telangiectasias Vital Signs: Last Vital Signs Pulse 81 04/28/25 13:57 BP 128/78 04/28/25 13:57 Pulse Ox 95 04/28/25 13:57 Oxygen Delivery Method Room Air 04/28/25 13:57 BMI result Body Mass Index 24.4 Results Reviewed Results Reviewed: Laboratory Tests 12/10/24 11:00 WBC 8.2 RBC 4.88 Hgb 14.7 Hct 44.3 Plt Count 235 ESR 7 Sodium 138 Potassium 4.3 Chloride 105 Carbon Dioxide 28 BUN 28 H Creatinine 1.14 Estimated GFR > 60 AST 40 H ALT 27 Laboratory Tests 04/18/25 06/05/25 08:22 11:00 Rheumatoid Factor < 13.0 Cycl Citrul Peptide IgG <16 HELADIO Screen POSITIVE A HELADIO Titer 1:80 H Scl-70 Scleroderma Ab <1.0 NEG Centromere B Antibody <1.0 NEG Assessment & Plan Assessment & Plan (1) 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 Patient with waxy/doorway thickening and induration of the skin in a symmetric pattern. Normal nail fold capillary dermoscopy. Has a positive HELADIO in a mitotic pattern but negative Scl 70 and centromere. No evidence of telangiectasias or skin thickening on the proximal areas of his body. 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 We will recheck his HELADIO and scleroderma panel however given his normal nail fold capillary dermoscopy and lack of a proximal skin thickness as well as a positive prayer sign this is consistent with diabetic cheiroarthropathy. Plan - Check HELADIO, Scleroderma panel - If unremarkable, occupational therapy Plan I spent 45 minutes reviewing the record and labs, taking a history, examining the patient, discussing the treatment plan, ordering diagnostic work up and documenting in the medical record Orders: Orders Complete Blood Count Auto Diff Today M34.9 - Systemic sclerosis, unspecified, R76.0 - Raised antibody titer C Reactive Protein Today M34.9 - Systemic sclerosis, unspecified, R76.0 - Raised antibody titer Erythrocyte Sedimentation Rate Today M34.9 - Systemic sclerosis, unspecified, R76.0 - Raised antibody titer Scleroderma 12 Panel Today M34.9 - Systemic sclerosis, unspecified HELADIO Reflex Titer and Pattern Today M34.9 - Systemic sclerosis, unspecified, R76.0 - Raised antibody titer Comprehensive Met. 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
== END 2025-04-28 14:45 | disposition home or self-care (01) ==
LOC: HO.RHE 13:55
PROVIDERS: PCP Family Medicine; Visit Provider Student in an Organized Health Care Education/Training Program
DX: E11.618 Type 2 diabetes mellitus with other diabetic arthropathy (principal)
CPT/HCPCS: 99204

== ENCOUNTER 2025-04-28 13:55 | Outpatient (REF) | payer OTHER, SELFPAY ==
[2025-04-28 18:16] LABS: MANUAL DIFF FLAG NO
[2025-04-28 18:43] LABS: Hematocrit 47.6 % (42.0-52.0); Hemoglobin 16.2 g/dl (14.0-18.0); Imm Gran Abs Auto 0.02 X10*3/uL (0.00-0.03); Imm Gran Pct Auto 0.3 % (0.0-0.4); Lymphocytes Absolute Auto 3.0 X10*3/uL (1.2-4.9); Mean Corpuscular HGB Conc 34.0 g/dl (31.0-36.0); Mean Corpuscular Hemoglobin 31.0 pg (27.0-33.0); Mean Corpuscular Volume 91.2 fL (80.0-98.0); NRBC Abs Auto 0.000 X10*3/uL (0.0-0.012); NRBC Pct Auto 0.0 /100WBC (0.0-0.2); Platelet Count 224 X10*3/uL (160-400); Red Blood Count 5.22 X10*6/uL (4.60-5.80); White Blood Count 7.8 X10*3/uL (4.8-10.8)
[2025-04-28 19:33] LABS: Alanine Aminotransferase 27 U/L (0-40); Albumin Level 4.6 g/dL (3.5-5.0); Alkaline Phosphatase 64 U/L (39-117); Anion Gap 15 (12-20); Aspartate Amino Transferase 28 U/L (5-37); Blood Urea Nitrogen 16 mg/dL (9-16); Calcium 10.2 mg/dL (8.4-10.2); Carbon Dioxide 29 mmol/L (22-29); Chloride 103 mmol/L (96-108); Estimated Glomerular Filt Rate > 60; Potassium 4.5 mmol/L (3.3-5.1); Sodium 142 mmol/L (135-145); Total Protein 8.0 g/dL (6.5-8.0)
--- OUTSIDE RECORDS SUMMARY | 2025-04-28 21:10 | XMS_ITS | Clinical Summary ---
Author Organization [employer] [facility] Address [address] [place] [address] Care Team Providers Care Partner Manager Name Role Phone Unavailable Primary Care [...] Most Recently Relevant to Health Maintenance Insurance [facility] MEDICAID STAND ADULT
[2025-05-03 15:08] LABS: Anti Nuclear Antibody Screen NEGATIVE (NEGATIVE)
[2025-05-05 13:04] LABS: Centromere Protein A Ab <11 SI (<11); Centromere Protein B Ab <11 SI (<11); Fibrillarin Ab <11 SI (<11); PM SCL 100 Ab <11 SI (<11); PM SCL 75 Ab <11 SI (<11); RNA Polymerase III RP11 Ab <11 SI (<11); RNA Polymerase III RP155 Ab <11 SI (<11); SCL-70 Extractable Nuclear Ab <11 SI (<11); Th-To Ab <11 SI (<11); U1 SNRNP RNP 70KD <11 SI (<11); U1 SNRNP RNP A <11 SI (<11); U1 SNRNP RNP C <11 SI (<11)
== END 2025-04-28 13:56 | disposition home or self-care (01) ==
LOC: HO.HKASLDS 13:55
PROVIDERS: PCP Family Medicine; Visit Provider Student in an Organized Health Care Education/Training Program
DX: E11.618 Type 2 diabetes mellitus with other diabetic arthropathy (principal); R76.0 Raised antibody titer; M34.9 Systemic sclerosis, unspecified; Z79.899 Other long term (current) drug therapy
CPT/HCPCS: 36415; 80053; 84182; 85025; 85652; 86038; 86140; 86235; 99202

== ENCOUNTER 2025-06-02 09:36 | Outpatient (AMB) | payer OTHER, SELFPAY ==
--- NOTE | 2025-06-02 09:45 | MHC.PC.OV ---
Vital Signs 06/02/25 09:48 Height 6 ft 6 in Weight 221 lb BMI 25.5 BP 132/82 Blood Pressure Location Rt brachial Position Sitting Respiration 14 Pulse 77 Pulse Source Pulse Oximeter Temp 98.3 F Temp Source Temporal Artery Scan Pulse Oximetry (%) 95 Oxygen Delivery Method Room Air Intake Visit Reasons: f/u hypertension, chronic conditions Intake Note: Arvind presents in the office today for hypertension and other chronic conditions. Allergies aspirin (ASPIRIN) Allergy (Intermediate, Verified 06/02/25 09:47) ITCH Medication List - Last Reconciled 06/02/25 by Mic Cordero MD blood pressure monitor Automatic, Digital. Dx: I10. Daily As directed, 999 days/lifetime blood sugar diagnostic (FreeStyle Lite Strips) DX: E11.9, test blood sugar 2 times a day, 90 days blood-glucose meter (FreeStyle Lite Meter kit) DX: E11.9, test blood sugar 2 times a day, duration 999 days cetirizine (All Day Allergy (cetirizine)) 10 mg PO DAILY 90 days flash glucose scanning reader (FreeStyle Law 2 [place]) As directed flash glucose sensor (FreeStyle Law 2 Sensor kit) 28 day supply folic acid 1 mg PO DAILY 90 days gabapentin 300 mg PO BID 30 days insulin glargine (Lantus Solostar U-100 Insulin) 50 units (0.5 mL) subcut QPM 90 days lancets (FreeStyle Lancets) As directed lisinopril-hydrochlorothiazide 20-12.5 mg 2 tabs PO DAILY 90 days meloxicam 15 mg PO DAILY 30 days metformin 500 mg PO BID 90 days pen needle, diabetic DX: E11.9, daily As directed to treat blood sugar, 90 day supply tadalafil (Cialis) 5 mg PO DAILY 30 days valacyclovir 500 mg PO BID 14 days Tobacco use date assessed: 06/02/25 Dental Screening Dental Screen Date: 06/02/25 Did you have a dental visit in the last 12 months?: Yes Did you have a dental problem in the last 6 months where you did not have access to dental care?: No Was dental information given to patient?: Patient has dentist HPI f/u hypertension, chronic conditions HPI Details 64 y/o male presents to f/u HTN, chronic conditions. Stiffness of joints of both hands. Notes ice/heat does not help much with pain. Had followed up with Rheumatology. They recommended occupation therapy if HELADIO, scleroderma panel were unremarkable. BP today 132/82, 77p. He is on lisinopril-HCTZ 20-12.5mg daily. 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 Elevated cholesterol Anxiety and depression Hepatitis C History of stroke Degenerative joint disease of hand Carpal tunnel syndrome on both sides Asthma Intracranial hemorrhage Diabetes mellitus HTN (hypertension) Surgical History Hx of elbow surgery Hx of carpal tunnel repair Hx of cystoscopy Hx of cystoscopy History of esophagogastroduodenoscopy (EGD) Hx of cholecystectomy History of tonsillectomy History of colonoscopy Family History Father HTN (hypertension) CVD (cardiovascular disease) Diabetes mellitus Mother HTN (hypertension) CVD (cardiovascular disease) Diabetes mellitus Sister No problems noted. Sister No problems noted. Sister Breast cancer Son No problems noted. Social History (Updated 06/02/25 @ 09:48 by Kenzie Fitzpatrick [facility]) Household Members: Spouse Housing: Apartment Are you a primary adult care provider to a significant other at home: No Do you presently have visiting nurse or other home services: No 75 years or older and lives alone: No Alcohol intake: current Alcohol intake frequency: holidays/special occasions only Comment: counts correct Patient Tobacco Use Status: Former Tobacco user Tobacco use type: Cigarette Cigarettes Per Day: 10 Years Smoked: 2 e-Cigarette/Vaping Use: Never Used Second Hand Smoke Exposure: No Special florencia needs: No Agree to transfusion: Yes service: No 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al status: disabled 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al exposures/hazards: No Sexual orientation: Straight/Heterosexual Gender identity: Male Cognitive needs: No Hearing needs: No Vision needs: No Questionnaire Thrive Questionnaire Date Thrive assessed: 08/21/24 I am a: Patient What is your living situation today?: I have a steady place to live Within the past 12 months, did the food you bought not last and you didn't have the money to get more?: Often true Within the past 12 months, did you worry whether your food would run out before you got money to buy more?: Often true Do you have trouble paying for medicines?: No Do you have trouble getting transportation to medical appointments?: No Do you have trouble paying your heating and electricity bill?: I choose not to answer this question Do you have trouble taking care of your child, family member or friend?: No Do you have trouble with day-to-day activities such as bathing, preparing meals, shopping, managing finances, etc.?: Yes Are you currently unemployed and looking for a job?: No Are you interested in more education?: No Please select the resources that you would like help with: Food Currently or been in a relationship where the following occur: No concerns reported THRIVE Score: 2 RIKI-7 AMB Questionnaire RIKI-7 Date RIKI - 7 assessed: 11/04/24 Source: Developed by Drs. Erik Napoles, Genie Hernandez, Stew Edge and colleagues, with an educational sami from [employer]. Review of Systems Const Denies chills, Denies fatigue, Denies fever(s), Denies headache(s) and Denies weakness ENT Denies dizziness and Denies headache(s) Card Denies dyspnea Resp Denies cough, Denies dyspnea, Denies wheezing and Denies other (shortness of breath) Musc Denies numbness and Denies tingling Neuro Denies dizziness, Denies headache(s), Denies numbness, Denies tingling and Denies weakness Psych Denies anxiety and Denies depression Endo Denies fatigue Aller/Immun Denies wheezing Physical exam (Primary Care) Vital Signs: Last Vital Signs Temp 98.3 F 06/02/25 09:48 Pulse 77 06/02/25 09:48 Resp 14 06/02/25 09:48 BP 132/82 06/02/25 09:48 Pulse Ox 95 06/02/25 09:48 Oxygen Delivery Method Room Air 06/02/25 09:48 BMI result Body Mass Index 25.5 Tobacco/Smoking Status: Tobacco use Status Tobacco use date assessed 06/02/25 06/02/25 09:51 Patient Tobacco Use Status Former Tobacco user 06/02/25 09:48 Tobacco use type Cigarette 06/02/25 09:48 e-Cigarette/Vaping Use Never Used 06/02/25 09:48 Thrive Assessment: Date of Thrive Assessment Date Thrive assessed 08/21/24 06/02/25 09:46 Currently or been in a relationship where the following occur: No concerns reported Const General: well developed; No acute distress Nutritional Appearance: well nourished Orientation/consciousness: patient oriented x3 [facility] Head: Yes normocephalic and Yes atraumatic Eyes General: appearance normal, both eyes and all related structures Pupils: Equal, round and reactive pupils present EOM: EOMs intact bilaterally Resp Effort & Inspection: normal respiratory effort Neuro General: patient oriented x3 and gait normal Cranial nerves: Yes Equal, round and reactive pupils present Psych Affect: normal affect Coding Level of Care Code Est Pt Level 4 (39163) Diagnoses Essential hypertension I10 Stiffness of joints of both hands M25.641; M25.642 Assessment & Plan Assessment & Plan (1) Essential hypertension: Code(s): I10 - Essential (primary) hypertension Category: Medical Plan: Blood pressure is well controlled. 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 We will recheck his HELADIO and scleroderma panel however given his normal nail fold capillary dermoscopy and lack of a proximal skin thickness as well as a positive prayer sign this is consistent with diabetic cheiroarthropathy. Plan - Check HELADIO, Scleroderma panel - If unremarkable, occupational therapy ----- Repeat HELADIO and scleroderma panel is negative. As above, starting occupational therapy Recommendation also to optimize blood sugar control however this has been well controlled since about 2022. Most recent A1c in April was 5.3%. Very good control. Continue current medications Continue NSAIDs and will give him a topical NSAID as well Will continue monitor Orders: Orders OT Evaluation and Treatment Today M25.641 - Stiffness of right hand, not elsewhere classified, M25.642 - Stiffness of left hand, not elsewhere classified Medications: New diclofenac sodium 1% (Arthritis Pain (diclofenac)) apply to single knee, ankle, foot; for foot includes sole/toes/top of foot 4 grams topical BID 200 grams 2RF 30 days Refilled meloxicam 15 mg PO DAILY 30 tabs 2RF 30 days
[2025-06-02 09:48] VITALS: BP 132/82; PULSE 77; RESP 14; TEMP 36.8; O2SAT 95; BMI 25.5
--- OUTSIDE RECORDS SUMMARY | 2025-06-02 10:53 | XMS_ITS | Clinical Summary ---
Author Organization [facility] Address [address] [place] [address] Care Team Providers Care [employer] Combat Skills Name Role Phone Unavailable Primary Care Provider [...] Mass Index - - Plan of Treatment Upcoming Encounters Date Type Department Care Team ([facility] st Contact Info) Description 06/07/2025 3:00 PM EST Office Visit [facility] [address] [place] [address] Kevin Monte, DMD [address] [place] [address] Health Maintenance Due Date Last Done Comments CT Colonography 1962 Colonoscopy 1962 Colorectal Cancer Screening 1962 Dental Prophylaxis 1962 Depression Screening 1962 FIT DNA/Cologuard 1962 FIT 1962 FOBT 1962 HIV Screening 1962 Lipid Panel 1962 SDOH Screening 1962 Sigmoidoscopy 1962 Disability Screening 1962 Alcohol/Substance Use Screening 1974 Hepatitis C Screening 1980 Zoster Vaccines (1 of 2) 2012 Hepatitis B Vaccines (2 of 3 - 19+ 3-dose series) 04/09/2023 03/12/2023, 06/23/2010, 03/07/2010, Additional history exists Dental Oral Exam 11/07/2023 05/08/2023 Dental X-Ray: Bitewings 05/09/2024 05/08/2023 Tobacco Screening 09/03/2024 09/03/2023 COVID-19 Vaccine ( season) 2025 Dental X-Ray: Full Mouth 05/09/2026 05/08/2023 DTaP/Tdap/Td Vaccines (3 - Td or Tdap) 02/19/2033 02/19/2023, 05/19/2018, 12/19/2009 RSV Patients and Patients Aged 60 years or older (1 - 1-dose 75+ series) 2037 Hepatitis A Vaccines Aged Out 03/12/2023, 06/23/2010, 12/19/2009 No longer eligible based on patient's age to complete this topic Influenza Vaccine Completed 04/05/2025, , 05/17/2022, Additional history exists Pneumococcal Vaccine: 50+ Years Completed 04/05/2025, 01/07/2012 HIB Vaccines Aged Out No longer eligi [...] Most Recently Relevant to Health Maintenance Insurance [facility] MEDICAID STAND ADULT
== END 2025-06-02 10:22 | disposition home or self-care (01) ==
LOC: HO.HMCFM 09:37
PROVIDERS: PCP Family Medicine; Visit Provider Family Medicine
DX: I10 Essential (primary) hypertension (principal); M25.641 Stiffness of right hand, not elsewhere classified; M25.642 Stiffness of left hand, not elsewhere classified

== ENCOUNTER → 2025-06-02 09:36 | Outpatient (BNVA) | payer OTHER, SELFPAY | PROVIDERS: PCP Family Medicine; Visit Provider Family Medicine | DX: E11.9 Type 2 diabetes mellitus without complications (principal); I10 Essential (primary) hypertension; M25.642 Stiffness of left hand, not elsewhere classified; M25.641 Stiffness of right hand, not elsewhere classified | CPT/HCPCS: 99212 ==